=== PATIENT | male | born 1965 | race Caucasian/White ===

== ENCOUNTER 2016-09-23 17:05 | Emergency (ER) | payer SELFPAY ==
[2016-09-23 17:12] VITALS: BMI 19.8
[2016-09-23 17:13] VITALS: RESP 16
[2016-09-23 17:41] LABS: URINE BILIRUBIN NEGATIVE (NEGATIVE); URINE BLOOD NEGATIVE (NEGATIVE); URINE COLOR Colorless (YELLOW); URINE GLUCOSE (UA) NORMAL (Normal); URINE KETONE NEGATIVE (NEGATIVE); URINE LEUKOCYTE ESTERASE NEG Leu/uL (Negative); URINE PROTEIN NEGATIVE (NEGATIVE); URINE UROBILINOGEN NORMAL mg/dL (0.2-1.0); WBC URINE < 1 /hpf (0-5)
--- NOTE | 2016-09-23 17:56 | CT ---
PROCEDURE: CT HEAD WITHOUT CONTRAST. HISTORY: intox, L fingers parasthesia COMPARISON: None available. TECHNIQUE: Axial computed tomography images were obtained through the head/brain without intravenous contrast. Radiation dose: Total exam DLP = 1129.86 mGy-cm. This CT exam was performed using one or more of the following dose reduction techniques: Automated exposure control, adjustment of the mA and/or kV according to patient size, and/or use of iterative reconstruction technique. FINDINGS: Streak artifact obscures evaluation of the skullbase. HEMORRHAGE: No intracranial hemorrhage. BRAIN: No mass effect or edema. Scattered white matter hypodensities, which are nonspecific, but often seen with chronic microvascular ischemic disease. Please note that MRI with diffusion imaging is more sensitive in the detection of acute ischemic event. VENTRICLES: No hydrocephalus. CALVARIUM: Unremarkable. PARANASAL SINUSES: Mild mucosal thickening of the ethmoid air cells. Remainder of the visualized paranasal sinuses appear clear. MASTOID AIR CELLS: Unremarkable as visualized. No inflammatory changes. OTHER FINDINGS: Partial opacification of bilateral external auditory canals, likely cerumen. IMPRESSION: Mild scattered white matter hypodensities, which are nonspecific, but often seen with chronic microvascular ischemic disease. Please note that MRI with diffusion imaging is more sensitive in the detection of acute ischemic event.
[2016-09-23 18:18] LABS: EOS # 0.4 K/uL (0.0-0.7); NRBC % 0.1 % (0.0-2.0)
[2016-09-23 18:21] LABS: BASO % 0.7 % (0.0-2.0); EOS % 6.5 % (0.0-4.0); HEMATOCRIT 46.4 % (35.0-51.0); LYMPH # 2.7 K/uL (1.0-4.3); LYMPH % 41.5 % (20.0-40.0); MEAN CORPUSCULAR HEMOGLOBIN 32.8 pg (27.0-31.0); MEAN CORPUSCULAR HGB CONC 33.5 g/dL (33.0-37.0); MEAN PLATELET VOLUME 9.8 fL (7.2-11.7); MONO # 0.7 K/uL (0.0-0.8); RED CELL DISTRIBUTION WIDTH 14.9 % (11.5-14.5); WHITE BLOOD COUNT 6.4 K/uL (4.8-10.8)
[2016-09-23 18:25] LABS: CHLORIDE 105 mmol/L (98-107)
[2016-09-23 18:26] LABS: SODIUM 144 mmol/L (132-148)
[2016-09-23 18:28] LABS: ALB/GLOB RATIO 1.2 (1.0-2.1); ALKALINE PHOSPHATASE 67 U/L (38-126); ALT/SGPT 54 U/L (21-72); AST/SGOT 73 U/L (17-59); BILIRUBIN,TOTAL 0.4 mg/dL (0.2-1.3); BLOOD UREA NITROGEN 11 mg/dL (9-20); CARBON DIOXIDE 25 mmol/L (22-30); CHOLESTEROL 199 mg/dL (0-199); GFR AFRICAN-AMERICAN > 60; GLUCOSE,RANDOM 92 mg/dL (75-110); TOTAL PROTEIN 7.3 g/dL (6.3-8.3)
[2016-09-23 18:29] LABS: ALCOHOL SERUM 251 mg/dl (0-10); CALCIUM 8.4 mg/dl (8.6-10.4); MEAN CELL VOLUME 97.7 fL (80.0-94.0)
--- NOTE | 2016-09-23 18:41 | C.PDOC ---
History Of Present Illness 51 year old patient presents to the ED complaining of intoxication and chronic left finger paresthesia. 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 Patient denies carpal tunnel syndrome or any other complaints at this time. Time Seen by Provider: 09/23/16 17:12 Chief Complaint (Nursing): Weakness/Neurological Deficit History Per: Patient History/Exam Limitations: no limitations Onset/Duration Of Symptoms: Worse Since (today) Current Symptoms Are (Timing): Still Present Fall Associated With With Symptoms: No Severity: Mild Pain Scale Rating Of: 3 Recent travel outside of the [place]: No Past Medical History Reviewed: Historical Data, Nursing Documentation, Vital Signs Vital Signs: Last Vital Signs Temp 98.4 F 09/23/16 19:20 Pulse 82 09/23/16 19:20 Resp 16 09/23/16 19:20 BP 134/80 09/23/16 19:20 Pulse Ox 95 09/23/16 19:20 - Medical History PMH: Asthma, COPD Family History: States: Unknown Family Hx - Social History Hx Tobacco Use: Yes Hx Alcohol Use: Yes Hx Substance Use: No - Immunization History Hx Tetanus Toxoid Vaccination: No Hx Influenza Vaccination: No Hx Pneumococcal Vaccination: No Review Of Systems Except As Marked, All Systems Reviewed And Found Negative. Constitutional: Negative for: Fever Musculoskeletal: Positive for: Other (left finger paresthesia) Skin: Negative for: Rash Physical Exam - Physical Exam Appears: Non-toxic, No Acute Distress, Other (intoxicated) Skin: Warm, Dry Head: Atraumatic, Normacephalic Neck: Normal ROM, Supple Chest: Symmetrical Cardiovascular: Rhythm Regular Respiratory: Normal Breath Sounds, No Rales, No Rhonchi, No Wheezing Back: Normal Inspection, No CVA Tenderness Extremity: Normal ROM, No Tenderness, No Pedal Edema, No Calf Tenderness, Capillary Refill (<2 seconds), No Deformity, No Swelling, Other (normal pulses) Neurological/Psych: Oriented x3, Normal Motor, Normal Sensation ED Course And Treatment - Laboratory Results Result Diagrams: 09/23/16 18:13 09/23/16 18:13 Lab Interpretation: Abnormal (etoh 251, tox neg.) ECG: Interpreted By Me ECG Rhythm: Sinus Rhythm ECG Interpretation: Normal Rate From EC O2 Sat by Pulse Oximetry: 95 (room air) Pulse Ox Interpretation: Normal - Radiology CXR: Interpreted by Me CXR Interpretation: Yes: No Acute Disease - Other Rad head CT X-Ray: Read By Radiologist (no acute findings.) Reevaluation Time: 18:42 Reassessment Condition: Improved (more sober) Medical Decision Making Medical Decision Making: alcohol intox neuro exam normal L hand/finger parasthesias more likely related to wrist/hand overused syndromes ie carpal tunnel syndrome opt f/u with neuro Counseled on alcohol abuse. Disposition Doctor Will See Patient In The: Office Counseled Patient/Family Regarding: Studies Performed, Diagnosis - Disposition Referrals: Yanick Macdonald MD [Staff Provider] - Disposition: HOME/ ROUTINE Disposition Time: 18:44 Condition: GOOD Additional Instructions: stop alcohol abuse Seek outpatient follow-up for your left hand parastesias wear a wrist splint at night when you sleep Consider carpal Tunnel syndrome. Instructions: Carpal Tunnel Syndrome (ED), Abuse of Alcohol (ED), Paresthesia ( ED) - Clinical Impression Clinical Impression: Anxiety, Alcohol abuse, Left hand paresthesia - Scribe Statement The provider has reviewed the documentation as recorded by the Scribconstantine Huerta Provider Attestation: All medical record entries made by the Scribe were at my direction and personally dictated by me. I have reviewed the chart and agree that the record accurately reflects my personal performance of the history, physical exam, medical decision making, and the department course for this patient. I have also personally directed, reviewed, and agree with the discharge instructions and disposition.
[2016-09-23 19:02] VITALS: O2SAT 95
[2016-09-23 19:25] VITALS: BP 134/80; PULSE 82; TEMP 98.4
--- NOTE | 2016-09-24 09:29 | RAD ---
HISTORY: adm COMPARISON: 05/18/2016 FINDINGS: LUNGS: Biapical pleural thickening with upper lobe granulomatous changes and scattered nodular densities. Diffuse increased interstitial lung markings. PLEURA: No significant pleural effusion identified, no pneumothorax apparent. CARDIOVASCULAR: Normal. OSSEOUS STRUCTURES: No significant abnormalities. VISUALIZED UPPER ABDOMEN: Normal. OTHER FINDINGS: None. IMPRESSION: Biapical pleural thickening with upper lobe granulomatous changes and scattered nodular densities. Diffuse increased interstitial lung markings.
--- NOTE | 2016-09-28 21:22 | CARD ---
APPROVED REPORT EKG Measurement Heart [id number] <Conclusion> Normal sinus rhythm Normal ECG
== END 2016-09-23 19:26 | disposition home or self-care (01) ==
LOC: C.ER 17:05
DX: F41.9 Anxiety disorder, unspecified (principal); F10.10 Alcohol abuse, uncomplicated; Y90.8 Blood alcohol level of 240 mg/100 ml or more; R20.9 Unspecified disturbances of skin sensation
CPT/HCPCS: 70450; 71010; 80053; 80061; 81001; 82948; 83036; 83880; 84484; 85025; 85610; 85730; 93005; 99285; G0480

== ENCOUNTER 2016-11-12 16:01 | Emergency (ER) | payer MEDICAID, OTHER ==
[2016-11-12 16:01] VITALS: BMI 19.8
[2016-11-12] MEDS ORDERED: Albuterol-Ipratrop 3 mg / 0.5 (3 ml) UD IH STA (16:53)
[2016-11-12] MEDS ORDERED: Albuterol 0.083% Inhal Sol (2.5 mg/3 mL) UD IH STA (16:53)
[2016-11-12] MEDS ORDERED: Albuterol 0.083% Inhal Sol (2.5 mg/3 mL) UD ONE (17:08)
[2016-11-12] MEDS ORDERED: Albuterol-Ipratrop 3 mg / 0.5 (3 ml) UD ONE (17:09)
[2016-11-12 17:10] LABS: BASO # 0.1 K/uL (0.0-0.2); EOS # 0.3 K/uL (0.0-0.7); EOS % 2.9 % (0.0-4.0); HEMOGLOBIN 15.9 g/dL (12.0-18.0); LYMPH # 1.6 K/uL (1.0-4.3); LYMPH % 17.9 % (20.0-40.0); MEAN CELL VOLUME 98.7 fL (80.0-94.0); MEAN CORPUSCULAR HEMOGLOBIN 33.3 pg (27.0-31.0); MEAN CORPUSCULAR HGB CONC 33.7 g/dL (33.0-37.0); MEAN PLATELET VOLUME 10.6 fL (7.2-11.7); MONO # 1.1 K/uL (0.0-0.8); MONO % 12.5 % (0.0-10.0); NEUT % 65.7 % (50.0-75.0); RBC 4.77 Mil/uL (4.40-5.90); RED CELL DISTRIBUTION WIDTH 14.1 % (11.5-14.5); WHITE BLOOD COUNT 9.2 K/uL (4.8-10.8)
[2016-11-12 17:14] LABS: URINE BILIRUBIN NEGATIVE (NEGATIVE); URINE BLOOD NEGATIVE (NEGATIVE); URINE CLARITY Clear (Clear); URINE COLOR Straw (YELLOW); URINE GLUCOSE (UA) NORMAL (Normal); URINE LEUKOCYTE ESTERASE NEG Leu/uL (Negative); URINE NITRATE NEGATIVE (NEGATIVE); URINE PROTEIN NEGATIVE (NEGATIVE); URINE UROBILINOGEN NORMAL mg/dL (0.2-1.0)
[2016-11-12 17:19] LABS: ALBUMIN 4.2 g/dL (3.5-5.0)
[2016-11-12 17:21] LABS: BENZODIAZEPINES, UR POSITIVE (NEGATIVE)
[2016-11-12 17:22] LABS: BARBITURATES, UR NEGATIVE (NEGATIVE)
[2016-11-12 17:22] LABS: ALB/GLOB RATIO 1.2 (1.0-2.1); AST/SGOT 120 U/L (17-59); GFR AFRICAN-AMERICAN > 60; GFR NON-AFRICAN AMERICAN > 60
[2016-11-12 17:23] LABS: ALT/SGPT 104 U/L (21-72); BLOOD UREA NITROGEN 16 mg/dL (9-20); CALCIUM 9.2 mg/dl (8.6-10.4)
[2016-11-12 17:24] LABS: OPIATES, UR NEGATIVE (NEGATIVE)
[2016-11-12 17:25] LABS: PHENCYCLIDINE, UR NEGATIVE (NEGATIVE)
--- NOTE | 2016-11-12 17:40 | C.PDOC ---
History Of Present Illness 51 y/o male, with past medical history of COPD, presents to the emergency department with complaints of shortness of breath, and pins and needle sensation to his right 4th and 5th digits for the last 2 weeks. Pt denies any injury, or leaning over. Patient also states that he has been drinking too much alcohol and now is waking in the morning feeling shaky. Pt is requesting a detox. Otherwise, denies any pain, cough, fever, or any other associated symptoms at this time. Time Seen by Provider: 11/12/16 16:39 Chief Complaint (Nursing): Weakness/Neurological Deficit History Per: Patient History/Exam Limitations: no limitations Onset/Duration Of Symptoms: Days Current Symptoms Are (Timing): Still Present Suicide/Self Injury Attempted (Context): None Modifying Factor(s): Alcohol Severity: None Pain Scale Rating Of: 0 Associated Symptoms: denies: Suicidal Thoughts, Suicidal Plan Involuntary Hold By: None Recent travel outside of the [place]: No Additional History Per: Patient Past Medical History Reviewed: Historical Data, Nursing Documentation, Vital Signs Vital Signs: Last Vital Signs Temp 98.3 F 11/12/16 16:08 Pulse 97 H 11/12/16 16:08 Resp 18 11/12/16 16:08 BP 136/82 11/12/16 16:08 Pulse Ox 94 L 11/12/16 17:59 - Medical History PMH: Anxiety, Asthma, COPD Denies: Chronic Kidney Disease Family History: States: Unknown Family Hx - Social History Hx Tobacco Use: Yes Hx Alcohol Use: Yes Hx Substance Use: No - Immunization History Hx Tetanus Toxoid Vaccination: No Hx Influenza Vaccination: No Hx Pneumococcal Vaccination: No Review Of Systems Except As Marked, All Systems Reviewed And Found Negative. Constitutional: Positive for: Other (shaky). Negative for: Fever, Chills Cardiovascular: Negative for: Chest Pain, Palpitations Respiratory: Positive for: Shortness of Breath. Negative for: Cough, Hemoptysis , Sputum Gastrointestinal: Negative for: Nausea, Vomiting, Abdominal Pain Skin: Negative for: Rash Neurological: Positive for: Other (pins and needle sensation to right 4th, 5th digits). Negative for: Headache, Dizziness Psych: Negative for: Suicidal ideation Physical Exam - Physical Exam Appears: Non-toxic, No Acute Distress Skin: Normal Color, Warm, Dry Head: Atraumatic, Normacephalic Eye(s): bilateral: Normal Inspection Neck: Normal ROM, Supple Chest: Symmetrical Cardiovascular: Rhythm Regular, No Murmur Respiratory: No Rales, No Rhonchi, Wheezing Gastrointestinal/Abdominal: Soft, No Tenderness Extremity: Normal ROM, No Tenderness, Capillary Refill (< 2 sec.), No Deformity , No Swelling Extremity: Bilateral: Atraumatic Neurological/Psych: Oriented x3, Normal Speech, Normal Cognition, Normal Motor, Normal Sensation ED Course And Treatment - Laboratory Results Result Diagrams: 11/12/16 17:07 11/12/16 17:07 Lab Interpretation: No Acute Changes O2 Sat by Pulse Oximetry: 94 Pulse Ox Interpretation: Normal Progress Note: Blood work, urinalysis ordered and reviewed. Patient was treated with Albuterol. Reevaluation Time: 18:22 Reassessment Condition: Improved (Breathing improved. Patient seen by crisis and advised that we do not have a detox bed today but may have availability tomorrow. Patient to be in contact with Stacey tomorrow. He is breathing better and has no wheezing after albuterol.) Disposition Counseled Patient/Family Regarding: Studies Performed, Diagnosis, Need For Followup - Disposition Referrals: Alcoholics Anonymous [Outside] [facility] [Outside] Disposition: HOME/ ROUTINE Disposition Time: 18:23 Condition: STABLE Instructions: Alcohol Use Disorder (ED), Paresthesia (ED), COPD (Chronic Obstructive Pulmonary Disease) (ED) - Clinical Impression Clinical Impression: Alcohol dependence, Paresthesia, Chronic obstructive lung disease - Scribe Statement The provider has reviewed the documentation as recorded by the Scribconstantine Huerta All medical record entries made by the Scribe were at my direction and personally dictated by me. I have reviewed the chart and agree that the record accurately reflects my personal performance of the history, physical exam, medical decision making, and the department course for this patient. I have also personally directed, reviewed, and agree with the discharge instructions and disposition.
[2016-11-12 19:16] VITALS: BP 121/82; PULSE 91; RESP 15; TEMP 98.2; O2SAT 97
== END 2016-11-12 18:45 | disposition home or self-care (01) ==
LOC: C.ER 16:01
DX: J44.9 Chronic obstructive pulmonary disease, unspecified (principal); F10.20 Alcohol dependence, uncomplicated; Y90.5 Blood alcohol level of 100-119 mg/100 ml; R20.2 Paresthesia of skin; Z72.0 Tobacco use
CPT/HCPCS: 80053; 81001; 85025; 94150; 94640; 99285; G0480

== ENCOUNTER 2016-11-14 10:11 | Emergency (ER) | payer MEDICAID, OTHER ==
[2016-11-14 10:11] VITALS: BMI 19.8
[2016-11-14] MEDS ORDERED: Sodium Chloride 0.9% 500 ML IV ONE (11:41)
[2016-11-14] MEDS ORDERED: Albuterol 0.083% Inhal Sol (2.5 mg/3 mL) UD IH STA (11:43)
[2016-11-14] MEDS ORDERED: Albuterol-Ipratrop 3 mg / 0.5 (3 ml) UD IH STA (11:43)
[2016-11-14] MEDS ORDERED: Sodium Chloride 0.9% 1,000 ML ONE (11:49)
--- NOTE | 2016-11-14 11:50 | C.PDOC ---
History Of Present Illness 51 yr old with history of alcohol abuse, COPD, smoker, presents to the ER requesting alcohol detox. Patient states he was seen earlier today at the clinic and was told " Im a hard of breathing and they recommend me go to ED to be seen". At present time, Patient denies fever, chills, headache, dizziness, visual changes, focal deficits, chest pain, SOB, wheezing, palpitation, diaphoresis, nausea, vomiting, abdominal pain, diarrhea, back pain. Denies SI or HI. Ambulate to ED for evaluation, not in any apparent distress. Time Seen by Provider: 11/14/16 10:36 Chief Complaint (Nursing): Substance Abuse History Per: Patient History/Exam Limitations: no limitations Onset/Duration Of Symptoms: Days Suicide/Self Injury Attempted (Context): None Modifying Factor(s): Alcohol Past Medical History Reviewed: Historical Data, Nursing Documentation, Vital Signs Vital Signs: Last Vital Signs Temp 98.6 F 11/14/16 13:45 Pulse 62 11/14/16 13:45 Resp 18 11/14/16 13:45 BP 114/70 11/14/16 13:45 Pulse Ox 99 11/14/16 13:45 - Medical History PMH: Anxiety, Asthma, COPD Family History: States: No Known Family Hx - Social History Hx Tobacco Use: Yes Hx Alcohol Use: Yes Hx Substance Use: No - Immunization History Hx Tetanus Toxoid Vaccination: No Hx Influenza Vaccination: No Hx Pneumococcal Vaccination: No Review Of Systems Except As Marked, All Systems Reviewed And Found Negative. Cardiovascular: Negative for: Chest Pain, Palpitations Respiratory: Negative for: Shortness of Breath, Wheezing Gastrointestinal: Negative for: Nausea, Vomiting, Abdominal Pain Neurological: Negative for: Weakness, Numbness Psych: Negative for: Suicidal ideation Physical Exam - Physical Exam Appears: Non-toxic, No Acute Distress Skin: Warm, Dry, No Rash Eye(s): bilateral: PERRL Ear(s): Bilateral: Normal Oral Mucosa: Moist, No Drooling Throat: No Erythema, No Exudate, No Drooling Neck: Supple, Other ((-) JVD, (-) carotid bruits) Chest: Symmetrical, No Tenderness Cardiovascular: Rhythm Regular, No Murmur Respiratory: No Decreased Breath Sounds, No Accessory Muscle Use, No Rales, No Rhonchi, No Stridor, Wheezing (Diffuse left sided wheezing . BS equal B/L.) Gastrointestinal/Abdominal: Soft, No Tenderness, No Distention, No Guarding, No Rebound Back: No CVA Tenderness Extremity: Normal ROM, No Pedal Edema, No Swelling Neurological/Psych: Oriented x3, Normal Speech, Normal Motor ED Course And Treatment - Laboratory Results Result Diagrams: 11/14/16 12:02 11/14/16 12:02 Lab Interpretation: No Acute Changes O2 Sat by Pulse Oximetry: 98 (RA ) Pulse Ox Interpretation: Normal - Other Rad CXR X-Ray: Viewed By Me, Read By Radiologist Interpretation: HISTORY: Cough. COMPARISON: Emphysema comparison made with chest radiograph 08/26/[address] scan chest 08/01/2014. TECHNIQUE: Chest PA and lateral. FINDINGS: LUNGS: Lungs appear hyperinflated. Findings consistent with mild. Mild biapical pleural thickening. PLEURA: No significant pleural effusion identified. No pneumothorax apparent. CARDIOVASCULAR: Normal. OSSEOUS STRUCTURES: Minor multilevel degenerative spondylosis of the thoracic spine. VISUALIZED UPPER ABDOMEN: Normal. OTHER FINDINGS: None. IMPRESSION: Lungs appear hyperinflated. Findings consistent with mild emphysema. Mild biapical pleural thickening. Progress Note: On re-evaluation, pt is afebrile, hemodynamicaly stable. Non- toxic. PulseOx 98% RA. ENT: milena cute findings. neck: Supple, (-) JVD, (-) carotid bruits. Lungs: moderate improvement in wheezing Left side, BS equal B/ L. CVS: (+)S1S2, reg. Abd: benign, (-) guarding, (-) rebound. Neurologicaly intact. Diagnotics and imaging review and appears without acute abnormalities. Pt has clinical findings c/w acute chronic brochitis with acute exacerbation, hx of alcohol abuse. Pt request alcohol detox and evaluation by crisis was ordered. Pt is medically cleared for further PES evaluation. After pt was evaluated by PES, case discussed with psych on-call, pt does not meet critearia for admission today. Discussed with pt, pt agrees with discharge and stable for discharge and outpt f/u now. Medical Decision Making Medical Decision Making: PLAN: * CXR * Alcohol Serum * CBC * CMP * Urinalysis * Albuterol IH * Ativan IVP * Solumedrol IVP * Sodium Chloride IV Disposition Counseled Patient/Family Regarding: Studies Performed, Diagnosis, Need For Followup, Rx Given - Disposition Referrals: Alcoholics Anonymous [Outside] [facility] [Outside] Disposition: HOME/ ROUTINE Disposition Time: 14:02 Condition: STABLE Additional Instructions: Take medication as prescribed Encourage fluids Follow up with PMD and Psychiatrist in 2-3 days for re-evaluation. Return to ED if any worsening or new changes. Prescriptions: Albuterol HFA [Ventolin HFA 90 mcg/actuation (8 g)] 1 puff IH Q6 #1 inhaler Azithromycin 1 tab PO DAILY #4 tab Azithromycin [Zithromax] 250 mg PO DAILY #4 tab Prednisone [Deltasone] 40 mg PO DAILY #6 tablet Instructions: COPD (Chronic Obstructive Pulmonary Disease) (ED), Alcohol Use Disorder (ED) - Clinical Impression Clinical Impression: Chronic obstructive lung disease, Alcohol dependence - PA / [employer] ATTENDANT / Resident Statement MD/DO has reviewed & agrees with the documentation as recorded. - Scribe Statement The provider has reviewed the documentation as recorded by the Scribe Ruthann Cramer All medical record entries made by the Romeoibconstantine were at my direction and personally dictated by me. I have reviewed the chart and agree that the record accurately reflects my personal performance of the history, physical exam, medical decision making, and the department course for this patient. I have also personally directed, reviewed, and agree with the discharge instructions and disposition.
[2016-11-14] MEDS ORDERED: Albuterol-Ipratrop 3 mg / 0.5 (3 ml) UD ONE (11:51)
[2016-11-14] MEDS ORDERED: Albuterol 0.083% Inhal Sol (2.5 mg/3 mL) UD ONE (11:51)
[2016-11-14 12:05] LABS: BASO # 0.1 K/uL (0.0-0.2); BASO % 0.9 % (0.0-2.0); EOS # 0.7 K/uL (0.0-0.7); EOS % 9.8 % (0.0-4.0); HEMOGLOBIN 14.9 g/dL (12.0-18.0); LYMPH # 1.4 K/uL (1.0-4.3); LYMPH % 18.7 % (20.0-40.0); MEAN CELL VOLUME 99.3 fL (80.0-94.0); MEAN CORPUSCULAR HGB CONC 33.3 g/dL (33.0-37.0); MEAN PLATELET VOLUME 10.5 fL (7.2-11.7); MONO # 1.2 K/uL (0.0-0.8); MONO % 16.5 % (0.0-10.0); NEUT # 3.9 K/uL (1.8-7.0); NEUT % 54.1 % (50.0-75.0); RBC 4.53 Mil/uL (4.40-5.90); RED CELL DISTRIBUTION WIDTH 13.7 % (11.5-14.5); WHITE BLOOD COUNT 7.3 K/uL (4.8-10.8)
[2016-11-14 12:26] LABS: BLOOD UREA NITROGEN 14 mg/dL (9-20); CALCIUM 8.5 mg/dl (8.6-10.4); GFR AFRICAN-AMERICAN > 60; GFR NON-AFRICAN AMERICAN > 60
[2016-11-14 12:57] LABS: URINE BILIRUBIN NEGATIVE (NEGATIVE); URINE BLOOD NEGATIVE (NEGATIVE); URINE CLARITY Clear (Clear); URINE COLOR Yellow (YELLOW); URINE GLUCOSE (UA) NORMAL (Normal); URINE LEUKOCYTE ESTERASE NEG Leu/uL (Negative); URINE NITRATE NEGATIVE (NEGATIVE); URINE PROTEIN NEGATIVE (NEGATIVE)
--- NOTE | 2016-11-14 13:02 | RAD ---
HISTORY: Cough COMPARISON: Emphysema comparison made with chest radiograph 08/26/[address] scan chest 08/01/2014. TECHNIQUE: Chest PA and lateral FINDINGS: LUNGS: Lungs appear hyperinflated. Findings consistent with mild. Mild biapical pleural thickening. PLEURA: No significant pleural effusion identified. No pneumothorax apparent. CARDIOVASCULAR: Normal. OSSEOUS STRUCTURES: Minor multilevel degenerative spondylosis of the thoracic spine VISUALIZED UPPER ABDOMEN: Normal. OTHER FINDINGS: None. IMPRESSION: Lungs appear hyperinflated. Findings consistent with mild emphysema. Mild biapical pleural thickening
[2016-11-14 13:08] LABS: BARBITURATES, UR NEGATIVE (NEGATIVE)
[2016-11-14 13:11] LABS: OPIATES, UR NEGATIVE (NEGATIVE)
[2016-11-14 13:12] LABS: PHENCYCLIDINE, UR NEGATIVE (NEGATIVE)
[2016-11-14 13:22] LABS: BENZODIAZEPINES, UR POSITIVE (NEGATIVE)
[2016-11-14 13:56] VITALS: RESP 18; TEMP 98.6
[2016-11-14 16:04] VITALS: BP 115/75; PULSE 83
[2016-11-14 16:06] VITALS: O2SAT 98
== END 2016-11-14 16:27 | disposition home or self-care (01) ==
LOC: C.ER 10:11
DX: J44.9 Chronic obstructive pulmonary disease, unspecified (principal); F10.20 Alcohol dependence, uncomplicated; Y90.0 Blood alcohol level of less than 20 mg/100 ml; F17.210 Nicotine dependence, cigarettes, uncomplicated
CPT/HCPCS: 71020; 80048; 81001; 85025; 94640; 96374; 96375; 99284; G0480; J2060; J2930; J7040

== ENCOUNTER 2016-12-24 06:11 | Inpatient (IN) | payer MEDICAID, OTHER ==
[2016-12-24 06:12] VITALS: BMI 19.8
[2016-12-24] MEDS ORDERED: Albuterol-Ipratrop 3 mg / 0.5 (3 ml) UD ONE ×2 (06:19→07:47)
[2016-12-24] MEDS ORDERED: Albuterol-Ipratrop 3 mg / 0.5 (3 ml) UD INH STA (06:20)
[2016-12-24] MEDS ORDERED: Sodium Chloride 0.9% 1,000 ML IV ONE (07:38)
[2016-12-24] MEDS ORDERED: Albuterol 0.083% Inhal Sol (2.5 mg/3 mL) UD IH STA (07:40)
[2016-12-24] MEDS ORDERED: Albuterol-Ipratrop 3 mg / 0.5 (3 ml) UD IH STA (07:40)
[2016-12-24] MEDS ORDERED: Magnesium Sulfate 1 gm in D5W 1 GM/100 ML BAG IV ONE (07:41)
[2016-12-24] MEDS ORDERED: Sodium Chloride 0.9% 1,000 ML ONE (07:48)
[2016-12-24] MEDS ORDERED: Albuterol 0.083% Inhal Sol (2.5 mg/3 mL) UD ONE (07:48)
--- NOTE | 2016-12-24 07:48 | C.PDOC ---
History Of Present Illness 51 y/o male, with past medical history of COPD, (+) smoker, presents to ED for evaluation of chest tightness associated with cough productive of clear sputum. Patient also noted some wheezing since last night. Patient reports using inhaler at home without any improvement. Denies fever, chills, headache, dizziness, drooling, dysphagia, dyspnea, chest pain, palpitations, diaphoresis, SOB, abd. pain, nausea, vomiting, back pain. Ambulate to ED for evaluation, not in any apparent distress.. Time Seen by Provider: 12/24/16 07:24 Chief Complaint (Nursing): Respiratory Distress History Per: Patient History/Exam Limitations: no limitations Onset/Duration Of Symptoms: Days Current Symptoms Are (Timing): Still Present Associated Symptoms: Productive Cough. denies: Fever, Chills, Ankle/Leg Swelling, Dizziness, Light-headedness Recent travel outside of the [place]: No Past Medical History Reviewed: Historical Data, Nursing Documentation, Vital Signs Vital Signs: Last Vital Signs Temp 98.1 F 12/27/16 07:00 Pulse 74 12/27/16 07:00 Resp 20 12/27/16 07:00 BP 100/63 12/27/16 07:00 Pulse Ox 96 12/27/16 07:00 - Medical History PMH: Anxiety, Asthma, COPD Family History: States: Unknown Family Hx - Social History Hx Tobacco Use: Yes Hx Alcohol Use: Yes Hx Substance Use: No - Immunization History Hx Tetanus Toxoid Vaccination: No Hx Influenza Vaccination: No Hx Pneumococcal Vaccination: No Review Of Systems Except As Marked, All Systems Reviewed And Found Negative. Constitutional: Negative for: Fever, Chills Cardiovascular: Negative for: Chest Pain, Palpitations Respiratory: Positive for: Cough, Sputum, Wheezing Gastrointestinal: Negative for: Nausea, Vomiting, Abdominal Pain Skin: Negative for: Rash Neurological: Negative for: Headache, Dizziness Physical Exam - Physical Exam Appears: Non-toxic, No Acute Distress Skin: Normal Color, Warm, Dry Head: Atraumatic, Normacephalic Eye(s): bilateral: Normal Inspection, EOMI Nose: Normal Oral Mucosa: Moist Throat: Normal, No Erythema, No Exudate Neck: Normal ROM, Supple Chest: Symmetrical Cardiovascular: Rhythm Regular Respiratory: No Accessory Muscle Use, No Rales, No Rhonchi, Wheezing (diffuse wheezing bilaterally) Gastrointestinal/Abdominal: Soft, No Tenderness, No Guarding, No Rebound Back: Normal Inspection Extremity: Normal ROM, Capillary Refill (< 2 sec.) Neurological/Psych: Oriented x3, Normal Speech, Normal Cognition ED Course And Treatment - Laboratory Results Result Diagrams: 12/26/16 07:04 12/26/16 07:04 Lab Interpretation: Abnormal ECG: Interpreted By Me ECG Rhythm: Sinus Rhythm ECG Interpretation: No Acute Changes Rate From EC (bpm) O2 Sat by Pulse Oximetry: 96 Pulse Ox Interpretation: Normal - Radiology CXR: Interpreted by Me, Viewed By Me CXR Interpretation: Yes: Other (emphysema) Progress Note: Treated with duonebs, mg sulfate, solumedrol, IV fluids. Labs, EKG, ordered. On re-eavluation, pt apears unchanged. PulseOx 94% RA- hypoxic and 96 % on 2lNC. Lungs: (+) diffuse B/L wheezing, BS equal B/L. Case discussed with ED attenidng and admission recommend. Pt was offere dadmission, agrees with plan. case discussed with Hospitalist and admission arranged. Disposition - Disposition Disposition: HOSPITALIZED Disposition Time: 09:19 Condition: STABLE - Clinical Impression Clinical Impression: COPD with acute exacerbation, Hypoxia, Smoking addiction - PA / TECHNICIAN BIOLOGICAL HEALTH / Resident Statement MD/DO has reviewed & agrees with the documentation as recorded. - Scribe Statement The provider has reviewed the documentation as recorded by the Romeoibconstantine Estrella All medical record entries made by the Romeoibconstantine were at my direction and personally dictated by me. I have reviewed the chart and agree that the record accurately reflects my personal performance of the history, physical exam, medical decision making, and the department course for this patient. I have also personally directed, reviewed, and agree with the discharge instructions and disposition.
[2016-12-24 07:50] LABS: BASO # 0.1 K/uL (0.0-0.2); BASO % 0.6 % (0.0-2.0); HEMATOCRIT 47.3 % (35.0-51.0); LYMPH # 1.5 K/uL (1.0-4.3); LYMPH % 17.2 % (20.0-40.0); MEAN CORPUSCULAR HEMOGLOBIN 33.8 pg (27.0-31.0); MEAN CORPUSCULAR HGB CONC 33.5 g/dL (33.0-37.0); MEAN PLATELET VOLUME 10.8 fL (7.2-11.7); MONO # 0.9 K/uL (0.0-0.8); MONO % 10.5 % (0.0-10.0); NRBC % 0.1 % (0.0-2.0); RED CELL DISTRIBUTION WIDTH 14.1 % (11.5-14.5)
[2016-12-24] MEDS ORDERED: Magnesium Sulfate 1 gm in D5W 1 GM/100 ML BAG IVPB ONE (07:55)
[2016-12-24 07:58] LABS: CHLORIDE 100 mmol/L (98-107)
[2016-12-24 07:59] LABS: POTASSIUM 4.1 mmol/L (3.6-5.2); SODIUM 143 mmol/L (132-148)
[2016-12-24 08:01] LABS: ALB/GLOB RATIO 1.1 (1.0-2.1); ALKALINE PHOSPHATASE 90 U/L (38-126); AST/SGOT 98 U/L (17-59); BILIRUBIN,TOTAL 0.7 mg/dL (0.2-1.3); CARBON DIOXIDE 27 mmol/L (22-30); GFR AFRICAN-AMERICAN > 60; TOTAL PROTEIN 7.7 g/dL (6.3-8.3)
[2016-12-24 08:02] LABS: ALT/SGPT 104 U/L (21-72); BLOOD UREA NITROGEN 15 mg/dL (9-20); CALCIUM 9.1 mg/dl (8.6-10.4); GLUCOSE,RANDOM 87 mg/dL (75-110)
[2016-12-24 09:06] LABS: RBC URINE < 1 /hpf (0-3); URINE BILIRUBIN NEGATIVE (NEGATIVE); URINE BLOOD NEGATIVE (NEGATIVE); URINE CALCIUM OXALATE CRYSTALS RARE /hpf (<OCC); URINE COLOR Yellow (YELLOW); URINE GLUCOSE (UA) NORMAL (Normal); URINE KETONE NEGATIVE (NEGATIVE); URINE LEUKOCYTE ESTERASE NEG Leu/uL (Negative); URINE PROTEIN NEGATIVE (NEGATIVE); URINE UROBILINOGEN NORMAL mg/dL (0.2-1.0); WBC URINE < 1 /hpf (0-5)
[2016-12-24] MEDS ORDERED: Moxifloxacin IV 400mg/250ml NS 400 MG/250 ML BAG IV ONE (10:30)
--- NOTE | 2016-12-24 10:51 | RAD ---
HISTORY: Cough COMPARISON: Chest x-ray performed 11/14/16 TECHNIQUE: Chest PA and lateral FINDINGS: LUNGS: Biapical pleural thickening. Hyperinflation may be seen in the setting of COPD. Increased lucencies especially within the bilateral upper lung swan compatible with underlying emphysema. No focal consolidation. Please note that chest x-ray has limited sensitivity for the detection of pulmonary masses. PLEURA: No significant pleural effusion identified. No definite pneumothorax . CARDIOVASCULAR: Heart size appears within normal limits. OSSEOUS STRUCTURES: Multilevel degenerative changes. VISUALIZED UPPER ABDOMEN: Unremarkable. OTHER FINDINGS: None. IMPRESSION: Biapical pleural thickening. Additional findings consistent with COPD/ emphysema.
[2016-12-24] MEDS: Albuterol-Ipratrop 3 mg / 0.5 (3 ml) UD INH SCH ×2 (13:56→20:31)
[2016-12-24 17:04] VITALS: RESP 20
[2016-12-24] MEDS: guaiFENesin 600 mg ER Tab PO SCH (17:54)
--- NOTE | 2016-12-24 20:18 | CARD ---
APPROVED REPORT EKG Measurement Heart [id number] <Conclusion> Normal sinus rhythm Normal ECG
[2016-12-24] MEDS ORDERED: methylPREDNISolone 60 MG in Sodium Chloride 0.9% 100 ML IVPB SCH (22:00)
[2016-12-25] MEDS: Albuterol-Ipratrop 3 mg / 0.5 (3 ml) UD INH SCH ×5 (00:05→19:11)
[2016-12-25] MEDS: Tiotropium 18 mcg Cap For Inhalation INH SCH (07:20)
[2016-12-25] MEDS: Enoxaparin 40 mg Syringe SC SCH (10:02)
[2016-12-25] MEDS: Azithromycin 500 MG in Sodium Chloride 0.9% 250 ML IVPB SCH (10:02)
[2016-12-25] MEDS: guaiFENesin 600 mg ER Tab PO SCH ×2 (10:02→18:44)
--- NOTE | 2016-12-25 10:13 | HP ---
CHIEF COMPLAINT: Shortness of breath. HISTORY OF PRESENT ILLNESS: This is a 51-year-old male, heavy smoker, severe COPD for the last 9 years. He had been smoking. He is noncompliant with diet, medications and followup and he was admitted last month at [facility] for shortness of breath, cough, congestion and wheezing. According to the patient, for last 3 days, he has been having increasing cough, congestion, shortness of breath and wheezing. Sputum productive of whitish sputum. He had fever, chills, or rigors. He denies any nausea, vomiting or diarrhea. He denies any polyuria, polydipsia or polyphagia. He denies any headaches or dizziness. He has been noncompliant. He was discharged on medications. He neither followed up with the private medical doctor nor he took medications. ALLERGIES: UNKNOWN. CURRENT MEDICATIONS: Unknown. PAST MEDICAL HISTORY: COPD and anxiety. SOCIAL HISTORY: He smokes and he drinks. FAMILY HISTORY: Noncontributory. PHYSICAL EXAMINATION: GENERAL: A middle-aged male in distress with shortness of breath. VITAL SIGNS: Blood pressure is 142/91, pulse is 99, respiratory rate is 20, and temperature is 97.7. SKIN: Dry. HEENT: Atraumatic and normocephalic. Negative pallor. Negative jaundice. Extraocular movements are intact. NECK: Supple. LUNGS: Bilateral inspiratory and expiratory rhonchi. CARDIOVASCULAR SYSTEM: S1 and S2 regular. ABDOMEN: Soft and nontender. Bowel sounds are positive. RECTAL: Negative. EXTREMITIES: No clubbing, cyanosis or edema. CENTRAL NERVOUS SYSTEM: Awake, alert and oriented x3. ASSESSMENT: 1. Acute exacerbation of chronic obstructive pulmonary disease. 2. Tracheal bronchitis. PLAN: Admit detailed orders written, seen and examined. Ghulam Jerez MD
[2016-12-25] MEDS: Fluticasone-Salmeterol 250-50mcg Diskus INH SCH ×2 (13:28→19:10)
--- NOTE | 2016-12-25 22:31 | CP.PCM.PN ---
Subjective - Subjective Subjective: LESS SOB Objective - Vital Signs/Intake and Output Vital Signs (last 24 hours): Temp Pulse Resp BP Pulse Ox 97.9 F 78 20 120/80 96 12/25/16 15:14 12/25/16 15:14 12/25/16 15:14 12/25/16 15:14 12/25/16 15:14 Intake and Output: 12/25/16 12/26/16 18:59 06:59 Intake Total 400 Output Total 0 Balance 400 - Medications Medications: Current Medications Albuterol/Ipratropium (Duoneb 3 Mg/0.5 Mg (3 Ml) Ud) 3 ml INH RQ6 [facility] Last Admin: 12/25/16 19:11 Dose: 3 ml Chlordiazepoxide (Librium) 25 mg PO Q8 PRN PRN Reason: Restlessness Last Admin: 12/25/16 21:45 Dose: 25 mg Enoxaparin Sodium (Lovenox) 40 mg SC DAILY [facility] Last Admin: 12/25/16 10:02 Dose: 40 mg Guaifenesin (Mucinex [place]) 600 mg PO BID [facility] Last Admin: 12/25/16 18:44 Dose: 600 mg Azithromycin 500 mg/ Sodium (Chloride) 250 mls @ 250 mls/hr IVPB DAILY [facility] Last Admin: 12/25/16 10:02 Dose: 250 mls/hr Methylprednisolone (Solu-Medrol) 60 mg IVP Q12 [facility] Last Admin: 12/25/16 21:44 Dose: 60 mg Nicotine (Nicoderm Cq) 1 patch TD DAILY [facility] Last Admin: 12/25/16 10:15 Dose: 1 patch Pneumococcal Polyvalent Vaccine (Pneumovax 23 Vaccine) 0.5 ml IM .ONCE ONE Stop: 12/27/16 10:01 Fluticasone/Salmeterol (Advair Diskus 250/50) 1 puff INH RQ12 [facility] Last Admin: 12/25/16 19:10 Dose: 1 puff Tiotropium [place] (Spiriva) 18 mcg INH RQ24 [facility] Last Admin: 12/25/16 07:20 Dose: 18 mcg - Constitutional Appears: Non-toxic, Chronically Ill - Head Exam Head Exam: NORMAL INSPECTION, NORMOCEPHALIC - Eye Exam Eye Exam: Normal appearance Pupil Exam: NORMAL ACCOMODATION - ENT Exam ENT Exam: Mucous Membranes Moist, Normal Exam, Normal Oropharynx, TM's Normal Bilaterally - Respiratory Exam Respiratory Exam: Prolonged Expiratory Phase, Rales, Rhonchi - Cardiovascular Exam Cardiovascular Exam: REGULAR RHYTHM, +S1, +S2 - GI/Abdominal Exam GI & Abdominal Exam: Normal Bowel Sounds Assessment and Plan (1) COPD with acute exacerbation Status: Acute
[2016-12-26] MEDS: Albuterol-Ipratrop 3 mg / 0.5 (3 ml) UD INH SCH ×4 (00:59→20:07)
[2016-12-26 07:22] LABS: BASO % 0.3 % (0.0-2.0); HEMATOCRIT 47.9 % (35.0-51.0); LYMPH # 0.5 K/uL (1.0-4.3); LYMPH % 3.3 % (20.0-40.0); MEAN CELL VOLUME 100.8 fL (80.0-94.0); MEAN CORPUSCULAR HEMOGLOBIN 33.5 pg (27.0-31.0); MEAN CORPUSCULAR HGB CONC 33.2 g/dL (33.0-37.0); MEAN PLATELET VOLUME 11.9 fL (7.2-11.7); MONO # 0.7 K/uL (0.0-0.8); MONO % 5.3 % (0.0-10.0); NRBC % 0.1 % (0.0-2.0); PLATELET COUNT 135 K/uL (130-400); RED CELL DISTRIBUTION WIDTH 13.8 % (11.5-14.5)
[2016-12-26] MEDS: Tiotropium 18 mcg Cap For Inhalation INH SCH (07:25)
[2016-12-26 07:37] LABS: WHITE BLOOD COUNT 14.1 K/uL (4.8-10.8)
[2016-12-26 07:56] LABS: CHLORIDE 100 mmol/L (98-107); SODIUM 138 mmol/L (132-148)
[2016-12-26 07:57] LABS: POTASSIUM 4.7 mmol/L (3.6-5.2)
[2016-12-26 07:59] LABS: CARBON DIOXIDE 29 mmol/L (22-30); GFR AFRICAN-AMERICAN > 60
[2016-12-26 08:00] LABS: BLOOD UREA NITROGEN 23 mg/dL (9-20); CALCIUM 9.3 mg/dl (8.6-10.4); GLUCOSE,RANDOM 130 mg/dL (75-110)
[2016-12-26 08:50] LABS: NEUTROPHIL 91 % (50-75); TOTAL CELLS COUNTED 100
[2016-12-26] MEDS: Azithromycin 500 MG in Sodium Chloride 0.9% 250 ML IVPB SCH (09:49)
[2016-12-26] MEDS: guaiFENesin 600 mg ER Tab PO SCH ×2 (09:49→18:08)
[2016-12-26] MEDS: Enoxaparin 40 mg Syringe SC SCH (09:49)
[2016-12-26] MEDS: Fluticasone-Salmeterol 250-50mcg Diskus INH SCH ×2 (13:08→20:09)
--- NOTE | 2016-12-26 14:53 | CP.PCM.PN ---
Subjective - Date & Time of Evaluation Date of Evaluation: 12/26/16 Time of Evaluation: 11:30 - Subjective Subjective: Pt seen and examined today , less sob, less congestion, cough with white color sputum, denies any fever, chills, a febrile Objective - Vital Signs/Intake and Output Vital Signs (last 24 hours): Temp Pulse Resp BP Pulse Ox 97.4 F L 71 20 124/61 97 12/26/16 07:00 12/26/16 07:00 12/26/16 07:00 12/26/16 07:00 12/26/16 07:00 Intake and Output: 12/26/16 12/26/16 06:59 18:59 Intake Total 120 Balance 120 - Medications Medications: Current Medications Albuterol/Ipratropium (Duoneb 3 Mg/0.5 Mg (3 Ml) Ud) 3 ml INH RQ6 [facility] Last Admin: 12/26/16 13:08 Dose: 3 ml Chlordiazepoxide (Librium) 25 mg PO Q8 PRN PRN Reason: Restlessness Last Admin: 12/25/16 21:45 Dose: 25 mg Enoxaparin Sodium (Lovenox) 40 mg SC DAILY [facility] Last Admin: 12/26/16 09:49 Dose: 40 mg Guaifenesin (Mucinex La) 600 mg PO BID [facility] Last Admin: 12/26/16 09:49 Dose: 600 mg Azithromycin 500 mg/ Sodium (Chloride) 250 mls @ 250 mls/hr IVPB DAILY [facility] Last Admin: 12/26/16 09:49 Dose: 250 mls/hr Methylprednisolone (Solu-Medrol) 60 mg IVP Q12 [facility] Last Admin: 12/26/16 09:49 Dose: 60 mg Nicotine (Nicoderm Cq) 1 patch TD DAILY [facility] Last Admin: 12/26/16 09:49 Dose: 1 patch Pneumococcal Polyvalent Vaccine (Pneumovax 23 Vaccine) 0.5 ml IM .ONCE ONE Stop: 12/27/16 10:01 Fluticasone/Salmeterol (Advair Diskus 250/50) 1 puff INH RQ12 [facility] Last Admin: 12/26/16 13:08 Dose: 1 puff Tiotropium [place] (Spiriva) 18 mcg INH RQ24 [facility] Last Admin: 12/26/16 07:25 Dose: 18 mcg - Labs Labs: 12/26/16 07:04 12/26/16 07:04 - Constitutional Appears: Well, No Acute Distress - Head Exam Head Exam: ATRAUMATIC, NORMAL INSPECTION, NORMOCEPHALIC - Eye Exam Eye Exam: EOMI, PERRL - ENT Exam ENT Exam: Mucous Membranes Moist - Neck Exam Neck Exam: Full ROM, Normal Inspection - Respiratory Exam Respiratory Exam: Rhonchi, Wheezes, NORMAL BREATHING PATTERN - Cardiovascular Exam Cardiovascular Exam: REGULAR RHYTHM, +S1, +S2 - GI/Abdominal Exam GI & Abdominal Exam: Soft, Normal Bowel Sounds - Neurological Exam Neurological Exam: Alert, Awake, Oriented x3 Assessment and Plan (1) COPD with acute exacerbation Assessment & Plan: will decrease solumedrol continue neb Status: Acute
[2016-12-26] MEDS: MethylPREDNISolone 40 mg Vial IVP SCH (21:58)
[2016-12-27] MEDS: Albuterol-Ipratrop 3 mg / 0.5 (3 ml) UD INH SCH ×3 (02:04→13:15)
[2016-12-27] MEDS: Tiotropium 18 mcg Cap For Inhalation INH SCH (08:08)
[2016-12-27] MEDS: Fluticasone-Salmeterol 250-50mcg Diskus INH SCH (08:08)
[2016-12-27 08:34] VITALS: BP 100/63; PULSE 74; TEMP 98.1; O2SAT 96
[2016-12-27] MEDS ORDERED: Pneumococcal 23-Valent Vaccine IM ONE ×2 (10:00→12:15)
--- NOTE | 2016-12-27 11:39 | CP.PCM.PN ---
Subjective - Date & Time of Evaluation Date of Evaluation: 12/27/16 Time of Evaluation: 11:30 - Subjective Subjective: Pt seen and examined today, cough and congestion improved , denies any sob , fever, chills a febrile Objective - Vital Signs/Intake and Output Vital Signs (last 24 hours): Temp Pulse Resp BP Pulse Ox 98.1 F 74 20 100/63 96 12/27/16 07:00 12/27/16 07:00 12/27/16 07:00 12/27/16 07:00 12/27/16 07:00 Intake and Output: 12/27/16 12/27/16 06:59 18:59 Intake Total 600 Balance 600 - Medications Medications: Current Medications Albuterol/Ipratropium (Duoneb 3 Mg/0.5 Mg (3 Ml) Ud) 3 ml INH RQ6 [facility] Last Admin: 12/27/16 08:08 Dose: 3 ml Chlordiazepoxide (Librium) 25 mg PO Q8 PRN PRN Reason: Restlessness Last Admin: 12/26/16 21:58 Dose: 25 mg Enoxaparin Sodium (Lovenox) 40 mg SC DAILY [facility] Last Admin: 12/26/16 09:49 Dose: 40 mg Guaifenesin (Mucinex La) 600 mg PO BID [facility] Last Admin: 12/26/16 18:08 Dose: 600 mg Azithromycin 500 mg/ Sodium (Chloride) 250 mls @ 250 mls/hr IVPB DAILY [facility] Last Admin: 12/26/16 09:49 Dose: 250 mls/hr Methylprednisolone (Solu-Medrol) 40 mg IVP Q12 [facility] Last Admin: 12/26/16 21:58 Dose: 40 mg Nicotine (Nicoderm Cq) 1 patch TD DAILY [facility] Last Admin: 12/26/16 09:49 Dose: 1 patch Fluticasone/Salmeterol (Advair Diskus 250/50) 1 puff INH RQ12 [facility] Last Admin: 12/27/16 08:08 Dose: 1 puff Tiotropium [place] (Spiriva) 18 mcg INH RQ24 [facility] Last Admin: 12/27/16 08:08 Dose: 18 mcg - Labs Labs: 12/26/16 07:04 12/26/16 07:04 - Constitutional Appears: Well, No Acute Distress - Respiratory Exam Respiratory Exam: Rhonchi, NORMAL BREATHING PATTERN - Cardiovascular Exam Cardiovascular Exam: REGULAR RHYTHM, +S1, +S2 - Neurological Exam Neurological Exam: Alert, Oriented x3 Assessment and Plan (1) COPD with acute exacerbation Status: Acute - Assessment and Plan (Free Text) Assessment: A/P 51 yr old male admitted for exc. COPD Pt clinically improved with steroids and neb. tx D/w Dr. merchant, cleared for discharge home today and f/u with clinic in 1 week RX given
[2016-12-27] MEDS: Azithromycin 500 MG in Sodium Chloride 0.9% 250 ML IVPB SCH (12:00)
[2016-12-27] MEDS: MethylPREDNISolone 40 mg Vial IVP SCH (12:00)
[2016-12-27] MEDS: Enoxaparin 40 mg Syringe SC SCH (12:01)
[2016-12-27] MEDS: guaiFENesin 600 mg ER Tab PO SCH (12:01)
--- NOTE | 2016-12-27 19:56 | CP.PCM.DIS ---
Provider - Provider Date of Admission: 12/24/16 09:30 Attending physician: Ghulam Jerez MD Diagnosis - Discharge Diagnosis (1) COPD with acute exacerbation Status: Acute Hospital Course - Lab Results Lab Results: Micro Results 12/25/16 06:00 Sputum Gram Stain - Final 12/25/16 06:00 Sputum Sputum Culture - Preliminary Gram Negative Rodríguez Most Recent Lab Values WBC 14.1 K/uL (4.8-10.8) H D 12/26/16 07:04 RBC 4.75 Mil/uL (4.40-5.90) 12/26/16 07:04 Hgb 15.9 g/dL (12.0-18.0) 12/26/16 07:04 Hct 47.9 % (35.0-51.0) 12/26/16 07:04 MCV 100.8 fL (80.0-94.0) H 12/26/16 07:04 MCH 33.5 pg (27.0-31.0) H 12/26/16 07:04 MCHC 33.2 g/dL (33.0-37.0) 12/26/16 07:04 RDW 13.8 % (11.5-14.5) 12/26/16 07:04 Plt Count 135 K/uL (130-400) 12/26/16 07:04 MPV 11.9 fL (7.2-11.7) H 12/26/16 07:04 Neut % (Auto) 91.1 % (50.0-75.0) H 12/26/16 07:04 Lymph % (Auto) 3.3 % (20.0-40.0) L 12/26/16 07:04 [place] % (Auto) 5.3 % (0.0-10.0) 12/26/16 07:04 Eos % (Auto) 0.0 % (0.0-4.0) 12/26/16 07:04 Baso % (Auto) 0.3 % (0.0-2.0) 12/26/16 07:04 Neut # 12.8 K/uL (1.8-7.0) H 12/26/16 07:04 Lymph # 0.5 K/uL (1.0-4.3) L 12/26/16 07:04 [place] # 0.7 K/uL (0.0-0.8) 12/26/16 07:04 Eos # 0.0 K/uL (0.0-0.7) 12/26/16 07:04 Baso # 0.0 K/uL (0.0-0.2) 12/26/16 07:04 Neutrophils % (Manual) 91 % (50-75) H 12/26/16 07:04 Lymphocytes % (Manual) 4 % (20-40) L 12/26/16 07:04 Monocytes % (Manual) 5 % (0-10) 12/26/16 07:04 Platelet Estimate Normal (NORMAL) 12/26/16 07:04 Macrocytosis (manual) Slight 12/26/16 07:04 Sodium 138 mmol/L (132-148) 12/26/16 07:04 Potassium 4.7 mmol/L (3.6-5.2) 12/26/16 07:04 Chloride 100 mmol/L (98-107) 12/26/16 07:04 Carbon Dioxide 29 mmol/L (22-30) 12/26/16 07:04 Anion Gap 14 (10-20) 12/26/16 07:04 BUN 23 mg/dL (9-20) H 12/26/16 07:04 Creatinine 0.7 MG/DL (0.8-1.5) L 12/26/16 07:04 Est GFR ( Amer) > 60 12/26/16 07:04 Est GFR (Non-Af Amer) > 60 12/26/16 07:04 Random Glucose 130 mg/dL (75-110) H 12/26/16 07:04 Calcium 9.3 mg/dl (8.6-10.4) 12/26/16 07:04 Total Bilirubin 0.7 mg/dL (0.2-1.3) 12/24/16 07:45 AST 98 U/L (17-59) H 12/24/16 07:45 ALT 104 U/L (21-72) H 12/24/16 07:45 Alkaline Phosphatase 90 U/L (38-126) 12/24/16 07:45 Troponin I < 0.0120 ng/mL (0.00-0.120) 12/24/16 07:45 NT-Pro-B Natriuret Pep < 11.1 pg/mL (0-900) 12/24/16 07:45 Total Protein 7.7 g/dL (6.3-8.3) 12/24/16 07:45 Albumin 4.1 g/dL (3.5-5.0) 12/24/16 07:45 Globulin 3.7 gm/dL (2.2-3.9) 12/24/16 07:45 Albumin/Globulin Ratio 1.1 (1.0-2.1) 12/24/16 07:45 Urine Color Yellow (YELLOW) 12/24/16 08:39 Urine Clarity Clear (Clear) 12/24/16 08:39 Urine pH 5.0 (5.0-8.0) 12/24/16 08:39 Ur Specific [place] 1.017 (1.003-1.030) 12/24/16 08:39 Urine Protein Negative mg/dL (NEGATIVE) 12/24/16 08:39 Urine Glucose (UA) Normal mg/dL (Normal) 12/24/16 08:39 Urine Ketones Negative mg/dL (NEGATIVE) 12/24/16 08:39 Urine Blood Negative (NEGATIVE) 12/24/16 08:39 Urine Nitrate Negative (NEGATIVE) 12/24/16 08:39 Urine Bilirubin Negative (NEGATIVE) 12/24/16 08:39 Urine Urobilinogen Normal mg/dL (0.2-1.0) 12/24/16 08:39 Ur Leukocyte Esterase Neg Baljit/uL (Negative) 12/24/16 08:39 Urine WBC (Auto) < 1 /hpf (0-5) 12/24/16 08:39 Urine RBC (Auto) < 1 /hpf (0-3) 12/24/16 08:39 Calcium Oxalate Crystal Rare /hpf (<OCC) 12/24/16 08:39 Urine Opiates Screen Negative (NEGATIVE) 12/24/16 08:39 Urine Methadone Screen Negative (NEGATIVE) 12/24/16 08:39 Ur Barbiturates Screen Negative (NEGATIVE) 12/24/16 08:39 Ur Phencyclidine Scrn Negative (NEGATIVE) 12/24/16 08:39 Ur Amphetamines Screen Negative (NEGATIVE) 12/24/16 08:39 U Benzodiazepines Scrn Positive (NEGATIVE) 12/24/16 08:39 U Oth Cocaine Metabols Negative (NEGATIVE) 12/24/16 08:39 U Cannabinoids Screen Negative (NEGATIVE) 12/24/16 08:39 - Hospital Course Hospital Course: less ob, for discharge Discharge Exam - Head Exam Head Exam: ATRAUMATIC, NORMAL INSPECTION, NORMOCEPHALIC - Eye Exam Eye Exam: EOMI, Normal appearance, PERRL Pupil Exam: NORMAL ACCOMODATION - ENT Exam ENT Exam: Mucous Membranes Moist, Normal Exam, Normal Oropharynx, TM's Normal Bilaterally - Neck Exam Neck exam: Normal Inspection - Respiratory Exam Respiratory Exam: Clear to PA & Lateral, Prolonged Expiratory Phase, NORMAL BREATHING PATTERN - Cardiovascular Exam Cardiovascular Exam: REGULAR RHYTHM, +S1, +S2 - GI/Abdominal Exam GI & Abdominal Exam: Normal Bowel Sounds - Rectal Exam Rectal Exam: NORMAL INSPECTION Discharge Plan - Discharge Medications Prescriptions: Fluticasone/Salmeterol 250/50 [Advair Diskus 250/50] 1 puff INH RQ12 #1 puff Albuterol/Ipratropium [Duoneb 3 mg/0.5 mg (3 ml) UD] 3 ml INH RQ6 #50 predniSONE [Prednisone] 30 mg PO DAILY #18 tab Tiotropium [Spiriva] 18 mcg INH RQ24 #30 cap Albuterol HFA [Ventolin HFA 90 mcg/actuation (8 g)] 1 puff IH Q6 #1 inhaler Azithromycin [Zithromax [place]] 500 mg PO DAILY #3 tab - Follow Up Plan Condition: STABLE Disposition: HOME/ ROUTINE Instructions: Pneumococcal Polyvalent Vaccine (By injection), COPD (Chronic Obstructive Pulmonary Disease) (DC), COPD (Chronic Obstructive Pulmonary Disease ) (GEN) Additional Instructions: Please f/u with [facility] clinic in 1 week - Call and make appointment Continue medication as per Med. Rec.
--- NOTE | 2016-12-27 19:56 | CP.PCM.PN ---
Subjective - Date & Time of Evaluation Date of Evaluation: 12/26/16 - Subjective Subjective: less ob, less cough, no chest pain Objective - Vital Signs/Intake and Output Vital Signs (last 24 hours): Temp Pulse Resp BP Pulse Ox 98.1 F 74 20 100/63 96 12/27/16 07:00 12/27/16 07:00 12/27/16 07:00 12/27/16 07:00 12/27/16 07:00 Intake and Output: 12/27/16 12/28/16 18:59 06:59 Intake Total 700 Balance 700 - Labs Labs: 12/26/16 07:04 12/26/16 07:04 - Constitutional Appears: Non-toxic, No Acute Distress, Cachectic - Head Exam Head Exam: ATRAUMATIC, NORMAL INSPECTION, NORMOCEPHALIC - Eye Exam Eye Exam: EOMI, Normal appearance - ENT Exam ENT Exam: Mucous Membranes Moist, Normal Exam - Neck Exam Neck Exam: Normal Inspection - Respiratory Exam Respiratory Exam: Clear to Ausculation Bilateral, NORMAL BREATHING PATTERN - GI/Abdominal Exam GI & Abdominal Exam: Soft, Normal Bowel Sounds - Rectal Exam Rectal Exam: NORMAL INSPECTION Assessment and Plan (1) COPD with acute exacerbation Status: Acute
== END 2016-12-27 13:45 | disposition home or self-care (01) | DRG 88 ==
LOC: C.ER 06:11 → C.9E 09:30 → C.6T 11:28
PROVIDERS: ADMIT Internal Medicine; ATTEND Internal Medicine
DX: J44.1 Chronic obstructive pulmonary disease with (acute) exacerbation (principal); F41.9 Anxiety disorder, unspecified; R09.02 Hypoxemia; F17.200 Nicotine dependence, unspecified, uncomplicated; Z91.11 Patient's noncompliance with dietary regimen; Z91.19 Patient's noncompliance with other medical treatment and regimen

== ENCOUNTER 2017-08-25 23:48 | Inpatient (IN) | payer SELFPAY ==
[2017-08-25 23:48] VITALS: BMI 19.8
[2017-08-26] MEDS ORDERED: Albuterol-Ipratrop 3 mg / 0.5 (3 ml) UD ONE ×2 (00:08→00:27)
[2017-08-26] MEDS ORDERED: Sodium Chloride 0.9% 1,000 ML IV ONE (00:24)
--- NOTE | 2017-08-26 00:25 | C.PDOC ---
History Of Present Illness 52 year old male presents to the ED c/o intermittent, on and off SOB that started yesterday. 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 Patient had a history of asthma since he was young. Patient is able to speak only in 2-3 word sentences, reports his discomfort at 7/10. Patient denies CP, palpitations, fever, chills. Time Seen by Provider: 08/26/17 00:23 Chief Complaint (Nursing): Shortness Of Breath History Per: Patient History/Exam Limitations: no limitations Onset/Duration Of Symptoms: Days Current Symptoms Are (Timing): Still Present Initiating Event: Upper Respiratory Illness Quality: "Pain" Current Respiratory Medications: See Home Med List Severity: Severe Pain Scale Rating Of: 7 Associated Symptoms: denies: Fever, Chills, Sweating Reports Recently: Seen In ED Recent travel outside of the [place]: No Additional History Per: Patient Past Medical History Reviewed: Historical Data, Nursing Documentation, Vital Signs Vital Signs: Last Vital Signs Temp 98.5 F 08/26/17 02:38 Pulse 73 08/26/17 02:38 Resp 19 08/26/17 02:38 BP 137/89 08/26/17 02:38 Pulse Ox 89 L 08/26/17 02:38 - Medical History PMH: Anxiety, Asthma, COPD Denies: HIV, HTN, Chronic Kidney Disease, Seizures, Sexually Transmitted Disease Surgical History: No Surg Hx Family History: States: No Known Family Hx - Social History Hx Tobacco Use: Yes Hx Alcohol Use: Yes Hx Substance Use: No - Immunization History Hx Tetanus Toxoid Vaccination: No Hx Influenza Vaccination: No Hx Pneumococcal Vaccination: No Review Of Systems Constitutional: Negative for: Fever, Chills Cardiovascular: Negative for: Chest Pain, Palpitations Respiratory: Positive for: Shortness of Breath Gastrointestinal: Negative for: Vomiting Skin: Negative for: Rash Neurological: Negative for: Weakness, Numbness Physical Exam - Physical Exam Appears: Non-toxic, In Acute Distress Skin: Warm, Dry Head: Normacephalic Eye(s): bilateral: Normal Inspection Ear(s): Bilateral: Normal Nose: No Discharge Oral Mucosa: Dry Throat: No Erythema, No Exudate Neck: Supple Chest: Symmetrical Cardiovascular: Rhythm Regular, No Murmur Respiratory: Decreased Breath Sounds, No Rales, No Rhonchi, Wheezing (scattered ) Gastrointestinal/Abdominal: Soft, No Tenderness, No Guarding, No Rebound Back: Normal Inspection Extremity: Normal ROM, No Swelling Extremity: Bilateral: Normal Color And Temperature, Normal ROM Neurological/Psych: Oriented x3, Normal Speech, Normal Motor, Normal Sensation Gait: Steady ED Course And Treatment - Laboratory Results Result Diagrams: 08/26/17 00:34 08/26/17 00:34 ECG: Interpreted By Me, Viewed By Me ECG Rhythm: Sinus Rhythm (73), Nonspecific Changes O2 Sat by Pulse Oximetry: 88 Pulse Ox Interpretation: Abnormal - Radiology CXR: Interpreted by Me, Viewed By Me CXR Interpretation: Yes: COPD. No: Infiltrates, Fracture, Pnemothorax Progress Note: Plan: - EKG. - ABG. - Labs. - CXR. - Duoneb 3 ml IH. - Solumedrol 125 mg IVP. - IV fluids Critical Care Time - Critical Care Note Total Time (in mins): 30 Documented critical care: time excludes all time spent performing seperately billable procedures. Disposition Discussed With DrBennett: Russ Sandhu Comment: accepted the pt on his service and took over the care at 2:55AM Doctor Will See Patient In The: ED Counseled Patient/Family Regarding: Studies Performed, Diagnosis, Smoking Cessation - Disposition Disposition: HOSPITALIZED Disposition Time: 02:59 Condition: FAIR Forms: [facility] (Bangladeshi) - POA Present On Arrival: None - Clinical Impression Clinical Impression: COPD with acute exacerbation - Scribe Statement The provider has reviewed the documentation as recorded by the Scribe Carrington Dinh All medical record entries made by the Scribe were at my direction and personally dictated by me. I have reviewed the chart and agree that the record accurately reflects my personal performance of the history, physical exam, medical decision making, and the department course for this patient. I have also personally directed, reviewed, and agree with the discharge instructions and disposition. Decision To Admit - Pt Status Changed To: Hospital Disposition Of: Inpatient - Admit Certification Admit to Inpatient:: After my assessment, the patient will require hospitalization for at least two midnights. This is because of the severity of symptoms shown, intensity of services needed, and/or the medical risk in this patient being treated as an outpatient. - InPatient: Physician Admission Certification: I certify that this patient requires 2 or more midnights of care for the following reason:: After my assessment, the patient will require hospitalization for at least two midnights. This is because of the severity of symptoms shown, intensity of services needed, and/or the medical risk in this patient being treated as an outpatient. - . Bed Request Type: Regular Admitting Physician: Russ Sandhu Patient Diagnosis: COPD with acute exacerbation
[2017-08-26] MEDS ORDERED: Sodium Chloride 0.9% 1,000 ML ONE (00:37)
[2017-08-26 00:43] LABS: BASO # 0.1 K/uL (0.0-0.2); BASO % 1.5 % (0.0-2.0); EOS # 0.7 K/uL (0.0-0.7); HEMOGLOBIN 15.1 g/dL (12.0-18.0); LYMPH # 1.7 K/uL (1.0-4.3); LYMPH % 32.8 % (20.0-40.0); MEAN CELL VOLUME 99.3 fL (80.0-94.0); MEAN CORPUSCULAR HEMOGLOBIN 34.6 pg (27.0-31.0); MEAN CORPUSCULAR HGB CONC 34.8 g/dL (33.0-37.0); MEAN PLATELET VOLUME 11.1 fL (7.2-11.7); MONO # 0.9 K/uL (0.0-0.8); MONO % 16.9 % (0.0-10.0); NEUT # 1.8 K/uL (1.8-7.0); NEUT % 34.8 % (50.0-75.0); RBC 4.37 Mil/uL (4.40-5.90); RED CELL DISTRIBUTION WIDTH 13.3 % (11.5-14.5)
[2017-08-26 00:44] LABS: WHITE BLOOD COUNT 5.3 K/uL (4.8-10.8)
[2017-08-26] MEDS: Albuterol-Ipratrop 3 mg / 0.5 (3 ml) UD IH SCH (00:47)
[2017-08-26 00:49] LABS: ALB/GLOB RATIO 1.3 (1.0-2.1); ALBUMIN 4.1 g/dL (3.5-5.0); ALT/SGPT 66 U/L (21-72); AST/SGOT 58 U/L (17-59); BLOOD UREA NITROGEN 15 mg/dL (9-20); CALCIUM 8.9 mg/dl (8.6-10.4); GFR AFRICAN-AMERICAN > 60; GFR NON-AFRICAN AMERICAN > 60
[2017-08-26 00:50] LABS: ABG ALLEN TEST POS; ARTERIAL BLOOD GAS HCO3 25.8 mmol/L (21-28); ARTERIAL BLOOD GAS O2 SAT 95.1 % (95-98); ARTERIAL BLOOD GAS PCO2 47 mm/Hg (35-45); ARTERIAL BLOOD GAS PH 7.37 (7.35-7.45); ARTERIAL BLOOD GAS PO2 67 mm/Hg (80-100); ARTERIAL BLOOD GAS TCO2 28.6 mmol/L (22-28)
[2017-08-26 00:57] LABS: INR 0.9; PROTHROMBIN TIME 10.4 SECONDS (9.7-12.2)
[2017-08-26] MEDS ORDERED: Magnesium Sulfate 1 gm in D5W 1 GM/100 ML BAG IVPB ONE ×2 (03:04→03:28)
[2017-08-26] MEDS ORDERED: Albuterol 0.042% Inhal Sol (1.25 mg/3 mL) UD INH PRN (03:05)
--- NOTE | 2017-08-26 03:27 | CP.PCM.HP ---
<MichelleKeith kemp - Last Filed: 08/26/17 05:28> History of Present Illness - History of Present Illness History of Present Illness: CC: SOBx 1 week PMD: None FULL CODE This patient is a 52yo M w/ a PMhx of asthma/COPD who is coming to the ER for a 1wk history of SOB, and cough, with clear sputum. The patient denies fevers/ chills, sick contacts, or recent travel. The patient still smokes 1/2 pack of cigarettes a day, and has been trying to cut down. He denies any other illicit drugs. He has never been intubated. He ran out of his nebulizer medicines, and does not have any long acting inhalers. The last time he was admitted to the hospital for an asthma exacerbation was last year. He denies fevers/chills, OMER, CP, abdominal pain, N/V/D, dysuria/freq/urg or lower extremity pain/swelling. 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 Present on Admission - Present on Admission Any Indicators Present on Admission: Yes History of DVT/PE: No History of Uncontrolled Diabetes: No Urinary Catheter: No Decubitus Ulcer Present: No Past Patient History - Infectious Disease Hx of Infectious Diseases: None - Past Medical History & Family History Past Medical History?: No - Past Social History Smoking Status: Heavy Smoker > 10 Cigarettes Daily - CARDIAC Hx Hypertension: No - PULMONARY Hx Asthma: Yes Hx Chronic Obstructive Pulmonary Disease (COPD): Yes - NEUROLOGICAL Hx Seizures: No - HEENT Hx HEENT Problems: No - RENAL Hx Chronic Kidney Disease: No - ENDOCRINE/METABOLIC Hx Endocrine Disorders: No - HEMATOLOGICAL/ONCOLOGICAL Hx Human Immunodeficiency Virus (HIV): No - INTEGUMENTARY Hx Dermatological Problems: No - MUSCULOSKELETAL/RHEUMATOLOGICAL Hx Musculoskeletal Disorders: No Hx Falls: No - GASTROINTESTINAL Hx Gastrointestinal Disorders: No - GENITOURINARY/GYNECOLOGICAL Hx Sexually Transmitted Disorders: No - PSYCHIATRIC Hx Anxiety: Yes Hx Substance Use: No - SURGICAL HISTORY Hx Surgeries: No - ANESTHESIA Hx Anesthesia: No Hx Anesthesia Reactions: No Hx Malignant Hyperthermia: No Meds Allergies/Adverse Reactions: Allergies Allergy/AdvReac Type Severity Reaction Status Date / Time No Known Allergies Allergy Verified 08/26/17 00:00 Physical Exam - Constitutional Appears: Well, Non-toxic - Head Exam Head Exam: ATRAUMATIC, NORMAL INSPECTION - Eye Exam Eye Exam: EOMI, Normal appearance - ENT Exam ENT Exam: Mucous Membranes Moist - Neck Exam Neck exam: Positive for: Full Rom, Normal Inspection. Negative for: Lymphadenopathy, Meningismus, Tenderness, Thyromegaly - Respiratory Exam Respiratory Exam: Wheezes, NORMAL BREATHING PATTERN. absent: Chest Wall Tenderness, Decreased Breath Sounds, Clear to Auscultation Bilateral, Rales, Rhonchi, Respiratory Distress, Stridor - Cardiovascular Exam Cardiovascular Exam: REGULAR RHYTHM, +S1, +S2. absent: Tachycardia - GI/Abdominal Exam GI & Abdominal Exam: Normal Bowel Sounds, Soft. absent: Organomegaly, Pulsatile Mass, Rebound, Rigid, Tenderness - Rectal Exam Rectal Exam: Deferred - Extremities Exam Extremities exam: Positive for: full ROM. Negative for: calf tenderness - Back Exam Back exam: NORMAL INSPECTION. absent: CVA tenderness (L), CVA tenderness (R) - Neurological Exam Neurological exam: Alert, Normal Gait, Oriented x3 - Skin Skin Exam: Warm Results - Vital Signs Recent Vital Signs: Last Vital Signs Temp 98.5 F 08/26/17 02:38 Pulse 73 08/26/17 02:38 Resp 19 08/26/17 02:38 BP 137/89 08/26/17 02:38 Pulse Ox 88 L 08/26/17 03:05 - Labs Result Diagrams: 08/26/17 00:34 08/26/17 00:34 Labs: Laboratory Results - last 24 hr 08/26/17 08/26/17 08/26/17 00:24 00:34 00:34 WBC 5.3 D RBC 4.37 L Hgb 15.1 Hct 43.4 MCV 99.3 H MCH 34.6 H MCHC 34.8 RDW 13.3 Plt Count 157 MPV 11.1 Neut % (Auto) 34.8 L Lymph % (Auto) 32.8 Shannon % (Auto) 16.9 H Eos % (Auto) 14.0 H Baso % (Auto) 1.5 Neut # (Auto) 1.8 Lymph # (Auto) 1.7 Shannon # (Auto) 0.9 H Eos # (Auto) 0.7 Baso # (Auto) 0.1 PT 10.4 INR 0.9 APTT 35 H Puncture Site pCO2 pO2 HCO3 ABG pH ABG Total CO2 ABG O2 Saturation ABG Base Excess Des Test ABG Potassium Glucose Lactate Liter Flow Sodium 142 Potassium 3.6 Chloride 103 Carbon Dioxide 27 Anion Gap 15 BUN 15 Creatinine 0.8 Est GFR ( Amer) > 60 Est GFR (Non-Af Amer) > 60 Random Glucose 102 Calcium 8.9 Magnesium 2.1 Total Bilirubin 0.7 AST 58 ALT 66 Alkaline Phosphatase 63 Total Protein 7.2 Albumin 4.1 Globulin 3.1 Albumin/Globulin Ratio 1.3 Arterial Blood Potassium 08/26/17 00:46 WBC RBC Hgb Hct MCV MCH MCHC RDW Plt Count MPV Neut % (Auto) Lymph % (Auto) Shannon % (Auto) Eos % (Auto) Baso % (Auto) Neut # (Auto) Lymph # (Auto) Shannon # (Auto) Eos # (Auto) Baso # (Auto) PT INR APTT Puncture Site Rr pCO2 47 H pO2 67 L HCO3 25.8 ABG pH 7.37 ABG Total CO2 28.6 H ABG O2 Saturation 95.1 ABG Base Excess 1.3 Des Test Pos ABG Potassium 3.0 L Glucose 113 H Lactate 1.0 Liter Flow 8.0 Sodium 140.0 Potassium Chloride 106.0 Carbon Dioxide Anion Gap BUN Creatinine Est GFR ( Amer) Est GFR (Non-Af Amer) Random Glucose Calcium Magnesium Total Bilirubin AST ALT Alkaline Phosphatase Total Protein Albumin Globulin Albumin/Globulin Ratio Arterial Blood Potassium 3.0 L Assessment & Plan - Assessment and Plan (Free Text) Assessment: 52yo M admitted for asthma exacerbation Asthma Exacerbation -Duonebs Q6H SAVANNAH -Albuterol PRN -Mag Sulfate -IV Solumedrol 40 Q12H -patient does not know peak flow; needs to be taught -does not have pulm; will need outpatient Smoking Cessation -offered patch; 14mcg/day Proph -does not need GI prophylaxis -SCD -patient will need PMD on discharge and pulmonology referral seen and discussed with Dr. Edson Yo PGY2 Decision To Admit - Pt Status Changed To: Hospital Disposition Of: Observation - . Bed Request Type: Telemetry Admitting Physician: Russ Sandhu <Russ Sandhu - Last Filed: 08/26/17 07:10> Results - Vital Signs Recent Vital Signs: Last Vital Signs Temp 97.8 F 08/26/17 04:40 Pulse 70 08/26/17 04:40 Resp 21 08/26/17 05:10 BP 135/83 08/26/17 04:40 Pulse Ox 91 L 08/26/17 05:10 - Labs Result Diagrams: 08/26/17 00:34 08/26/17 00:34 Labs: Laboratory Results - last 24 hr 08/26/17 08/26/17 08/26/17 00:24 00:34 00:34 WBC 5.3 D RBC 4.37 L Hgb 15.1 Hct 43.4 MCV 99.3 H MCH 34.6 H MCHC 34.8 RDW 13.3 Plt Count 157 MPV 11.1 Neut % (Auto) 34.8 L Lymph % (Auto) 32.8 Shannon % (Auto) 16.9 H Eos % (Auto) 14.0 H Baso % (Auto) 1.5 Neut # (Auto) 1.8 Lymph # (Auto) 1.7 Shannon # (Auto) 0.9 H Eos # (Auto) 0.7 Baso # (Auto) 0.1 PT 10.4 INR 0.9 APTT 35 H Puncture Site pCO2 pO2 HCO3 ABG pH ABG Total CO2 ABG O2 Saturation ABG Base Excess Des Test ABG Potassium Glucose Lactate Liter Flow Sodium 142 Potassium 3.6 Chloride 103 Carbon Dioxide 27 Anion Gap 15 BUN 15 Creatinine 0.8 Est GFR ( Amer) > 60 Est GFR (Non-Af Amer) > 60 Random Glucose 102 Calcium 8.9 Magnesium 2.1 Total Bilirubin 0.7 AST 58 ALT 66 Alkaline Phosphatase 63 Total Protein 7.2 Albumin 4.1 Globulin 3.1 Albumin/Globulin Ratio 1.3 Arterial Blood Potassium Influenza Typ A,B (EIA) 08/26/17 08/26/17 00:46 03:32 WBC RBC Hgb Hct MCV MCH MCHC RDW Plt Count MPV Neut % (Auto) Lymph % (Auto) Shannon % (Auto) Eos % (Auto) Baso % (Auto) Neut # (Auto) Lymph # (Auto) Shannon # (Auto) Eos # (Auto) Baso # (Auto) PT INR APTT Puncture Site Rr pCO2 47 H pO2 67 L HCO3 25.8 ABG pH 7.37 ABG Total CO2 28.6 H ABG O2 Saturation 95.1 ABG Base Excess 1.3 Des Test Pos ABG Potassium 3.0 L Glucose 113 H Lactate 1.0 Liter Flow 8.0 Sodium 140.0 Potassium Chloride 106.0 Carbon Dioxide Anion Gap BUN Creatinine Est GFR ( Amer) Est GFR (Non-Af Amer) Random Glucose Calcium Magnesium Total Bilirubin AST ALT Alkaline Phosphatase Total Protein Albumin Globulin Albumin/Globulin Ratio Arterial Blood Potassium 3.0 L Influenza Typ A,B (EIA) Negative for flu a/b Attending/Attestation - Attestation I have personally seen and examined this patient.: Yes I have fully participated in the care of the patient.: Yes I have reviewed all pertinent clinical information: Yes Notes (Text): Assessment * COPD exacerbation, patient ran out of the albuterol, came with broncoconstriction, patient has some haziness in right base, airflow improved significantly in ER * Tobacco abuse Plan * Systemic oral prednisone * duoneb * counselled about compliance, tobacco cessation * likely dc home today if no significant recurrence of the symptoms.
[2017-08-26] MEDS: Albuterol-Ipratrop 3 mg / 0.5 (3 ml) UD INH SCH ×2 (07:41→13:51)
[2017-08-26 09:01] VITALS: BP 137/83; PULSE 73; RESP 20; TEMP 98; O2SAT 94
--- NOTE | 2017-08-26 09:43 | RAD ---
PROCEDURE: CHEST RADIOGRAPH, 1 VIEW HISTORY: SOB COMPARISON: Chest radiograph dated 12/24/2016. FINDINGS: LUNGS: Suggestion of right apical fibrotic/bullous change, nonspecific. No focal consolidation. PLEURA: No pneumothorax or pleural fluid seen. CARDIOVASCULAR: Normal. OSSEOUS STRUCTURES: Unchanged. VISUALIZED UPPER ABDOMEN: Normal. OTHER FINDINGS: None. IMPRESSION: Suggestion of right apical fibrotic/ bullous change, nonspecific. This is a new finding. CT scan can be obtained for further evaluation as clinically warranted.
[2017-08-26] MEDS ORDERED: guaiFENesin 600 mg ER Tab PO SCH (10:00)
--- NOTE | 2017-08-26 10:47 | CP.PCM.DIS ---
<Carla Corey - Last Filed: 08/26/17 10:39> Provider - Provider Date of Admission: 08/26/17 02:58 Attending physician: Russ Sandhu MD Primary care physician: [facility] Time Spent in preparation of Discharge (in minutes): 35 Diagnosis - Discharge Diagnosis (1) COPD with acute exacerbation Status: Resolved (2) Asthma exacerbation Status: Resolved (3) Smoking addiction Status: Chronic Hospital Course - Lab Results Lab Results: Most Recent Lab Values WBC 5.3 K/uL (4.8-10.8) D 08/26/17 00:34 RBC 4.37 Mil/uL (4.40-5.90) L 08/26/17 00:34 Hgb 15.1 g/dL (12.0-18.0) 08/26/17 00:34 Hct 43.4 % (35.0-51.0) 08/26/17 00:34 MCV 99.3 fL (80.0-94.0) H 08/26/17 00:34 MCH 34.6 pg (27.0-31.0) H 08/26/17 00:34 MCHC 34.8 g/dL (33.0-37.0) 08/26/17 00:34 RDW 13.3 % (11.5-14.5) 08/26/17 00:34 Plt Count 157 K/uL (130-400) 08/26/17 00:34 MPV 11.1 fL (7.2-11.7) 08/26/17 00:34 Neut % (Auto) 34.8 % (50.0-75.0) L 08/26/17 00:34 Lymph % (Auto) 32.8 % (20.0-40.0) 08/26/17 00:34 Cannon % (Auto) 16.9 % (0.0-10.0) H 08/26/17 00:34 Eos % (Auto) 14.0 % (0.0-4.0) H 08/26/17 00:34 Baso % (Auto) 1.5 % (0.0-2.0) 08/26/17 00:34 Neut # (Auto) 1.8 K/uL (1.8-7.0) 08/26/17 00:34 Lymph # (Auto) 1.7 K/uL (1.0-4.3) 08/26/17 00:34 Cannon # (Auto) 0.9 K/uL (0.0-0.8) H 08/26/17 00:34 Eos # (Auto) 0.7 K/uL (0.0-0.7) 08/26/17 00:34 Baso # (Auto) 0.1 K/uL (0.0-0.2) 08/26/17 00:34 PT 10.4 SECONDS (9.7-12.2) 08/26/17 00:24 INR 0.9 08/26/17 00:24 APTT 35 SECONDS (21-34) H 08/26/17 00:24 Puncture Site Rr 08/26/17 00:46 pCO2 47 mm/Hg (35-45) H 08/26/17 00:46 pO2 67 mm/Hg (80-100) L 08/26/17 00:46 HCO3 25.8 mmol/L (21-28) 08/26/17 00:46 ABG pH 7.37 (7.35-7.45) 08/26/17 00:46 ABG Total CO2 28.6 mmol/L (22-28) H 08/26/17 00:46 ABG O2 Saturation 95.1 % (95-98) 08/26/17 00:46 ABG Base Excess 1.3 mmol/L (-2.0-3.0) 08/26/17 00:46 Des Test Pos 08/26/17 00:46 ABG Potassium 3.0 mmol/L (3.6-5.2) L 08/26/17 00:46 Sodium 140.0 mmol/l (132-148) 08/26/17 00:46 Chloride 106.0 mmol/L (98-107) 08/26/17 00:46 Glucose 113 mg/dl (75-110) H 08/26/17 00:46 Lactate 1.0 mmol/L (0.7-2.1) 08/26/17 00:46 Liter Flow 8.0 08/26/17 00:46 Sodium 142 mmol/L (132-148) 08/26/17 00:34 Potassium 3.6 mmol/L (3.6-5.2) 08/26/17 00:34 Chloride 103 mmol/L (98-107) 08/26/17 00:34 Carbon Dioxide 27 mmol/L (22-30) 08/26/17 00:34 Anion Gap 15 (10-20) 08/26/17 00:34 BUN 15 mg/dL (9-20) 08/26/17 00:34 Creatinine 0.8 mg/dL (0.8-1.5) 08/26/17 00:34 Est GFR ( Amer) > 60 05 00:34 Est GFR (Non-Af Amer) > 60 08/26/17 00:34 Random Glucose 102 mg/dL (75-110) 08/26/17 00:34 Calcium 8.9 mg/dl (8.6-10.4) 08/26/17 00:34 Magnesium 2.1 mg/dL (1.6-2.3) 08/26/17 00:34 Total Bilirubin 0.7 mg/dL (0.2-1.3) 08/26/17 00:34 AST 58 U/L (17-59) 08/26/17 00:34 ALT 66 U/L (21-72) 08/26/17 00:34 Alkaline Phosphatase 63 U/L (38-126) 08/26/17 00:34 Total Protein 7.2 g/dL (6.3-8.3) 08/26/17 00:34 Albumin 4.1 g/dL (3.5-5.0) 08/26/17 00:34 Globulin 3.1 gm/dL (2.2-3.9) 08/26/17 00:34 Albumin/Globulin Ratio 1.3 (1.0-2.1) 08/26/17 00:34 Arterial Blood Potassium 3.0 mmol/L (3.6-5.2) L 08/26/17 00:46 Influenza Typ A,B (EIA) Negative for flu a/b (NEGATIVE) 08/26/17 03:32 - Hospital Course Hospital Course: HPI: "This patient is a 52yo M w/ a PMhx of asthma/COPD who is coming to the ER for a 1wk history of SOB, and cough, with clear sputum. The patient denies fevers/chills, sick contacts, or recent travel. The patient still smokes 1/2 pack of cigarettes a day, and has been trying to cut down. He denies any other illicit drugs. He has never been intubated. He ran out of his nebulizer medicines, and does not have any long acting inhalers. The last time he was admitted to the hospital for an asthma exacerbation was last year. He denies fevers/chills, OMER, CP, abdominal pain, N/V/D, dysuria/freq/urg or lower extremity pain/swelling." Patient was admitted for COPD/ Asthma exacerbation. Patient given IV Solumedrol in ED and Duonebs and Magnesium Sulfate. Patient continued on Duonebs and iv Solumedrol. Patient's breathing greatly improved. Patient explained importance of smoking cessation and following up with clinic. Patient given nicotine patch for his tobacco abuse. Patient will need to continue using nicotine patches upon discharge and was explained the importance of smoking cessation. Upon discharge patient able to walk around with no shortness of breath. Patient feeling much better. Discharge Exam - Head Exam Head Exam: ATRAUMATIC, NORMAL INSPECTION - Eye Exam Eye Exam: EOMI, Normal appearance Pupil Exam: NORMAL ACCOMODATION - ENT Exam ENT Exam: Mucous Membranes Moist - Respiratory Exam Respiratory Exam: Wheezes (mild ), NORMAL BREATHING PATTERN. absent: Rales, Rhonchi, Respiratory Distress - Cardiovascular Exam Cardiovascular Exam: REGULAR RHYTHM, RRR, +S1, +S2 - GI/Abdominal Exam GI & Abdominal Exam: Normal Bowel Sounds, Soft. absent: Distended, Tenderness - Extremities Exam Extremities exam: normal inspection - Neurological Exam Neurological exam: Alert, Oriented x3 - Psychiatric Exam Psychiatric exam: Normal Affect, Normal Mood - Skin Skin Exam: Intact, Normal Color, Warm Discharge Plan - Discharge Medications Prescriptions: Albuterol 0.083% [Albuterol 0.083% Inhal Ina (2.5 mg/3 ml) UD] 2.5 mg IH Q4H PRN #30 neb PRN Reason: Shortness Of Breath Albuterol Sulfate [Proair Hfa] 0.09 mg IH Q4H PRN #1 inh PRN Reason: Shortness Of Breath Nicotine 14 mg/24 hr [Nicoderm CQ] 1 patch TD Q48H #5 patch predniSONE [predniSONE Tab] 10 mg PO DAILY PRN #30 tab PRN Reason: Shortness Of Breath - Follow Up Plan Condition: FAIR Disposition: HOME/ ROUTINE Instructions: Quitting Smoking for Older Adults, Smoking: Not Just Harmful to Your Lungs and Heart, Quitting Smoking, Exacerbation of COPD (DC), Medicines for Chronic Obstructive Pulmonary Disease (COPD), Albuterol, Nicotine, Prednisone, Breathing Exercises Additional Instructions: Patient stable for discharge as per Dr. Lerma. Patient to follow up with [facility] within 1 week. Patient will need a Pulmonology referral from clinic. Patient stressed importance of smoking cessation. Patient to use albuterol inhaler q4h as needed, albuterol nebulizer q4h as needed, Prednisone 10mg daily as needed, and Nicotine patch every other day. Patient to please return to Emergency Room if symptoms return. Patient explained instructions who understands and agrees. Referrals: [facility] at [facility] [Outside] <Yasmany Lerma - Last Filed: 08/26/17 15:00> Provider - Provider Date of Admission: 08/26/17 02:58 Attending physician: Russ Sandhu MD Hospital Course - Lab Results Lab Results: Most Recent Lab Values WBC 5.3 K/uL (4.8-10.8) D 08/26/17 00:34 RBC 4.37 Mil/uL (4.40-5.90) L 08/26/17 00:34 Hgb 15.1 g/dL (12.0-18.0) 08/26/17 00:34 Hct 43.4 % (35.0-51.0) 08/26/17 00:34 MCV 99.3 fL (80.0-94.0) H 08/26/17 00:34 MCH 34.6 pg (27.0-31.0) H 08/26/17 00:34 MCHC 34.8 g/dL (33.0-37.0) 08/26/17 00:34 RDW 13.3 % (11.5-14.5) 08/26/17 00:34 Plt Count 157 K/uL (130-400) 08/26/17 00:34 MPV 11.1 fL (7.2-11.7) 08/26/17 00:34 Neut % (Auto) 34.8 % (50.0-75.0) L 08/26/17 00:34 Lymph % (Auto) 32.8 % (20.0-40.0) 08/26/17 00:34 Cannon % (Auto) 16.9 % (0.0-10.0) H 08/26/17 00:34 Eos % (Auto) 14.0 % (0.0-4.0) H 08/26/17 00:34 Baso % (Auto) 1.5 % (0.0-2.0) 08/26/17 00:34 Neut # (Auto) 1.8 K/uL (1.8-7.0) 08/26/17 00:34 Lymph # (Auto) 1.7 K/uL (1.0-4.3) 08/26/17 00:34 Cannon # (Auto) 0.9 K/uL (0.0-0.8) H 08/26/17 00:34 Eos # (Auto) 0.7 K/uL (0.0-0.7) 08/26/17 00:34 Baso # (Auto) 0.1 K/uL (0.0-0.2) 08/26/17 00:34 PT 10.4 SECONDS (9.7-12.2) 08/26/17 00:24 INR 0.9 08/26/17 00:24 APTT 35 SECONDS (21-34) H 08/26/17 00:24 Puncture Site Rr 08/26/17 00:46 pCO2 47 mm/Hg (35-45) H 08/26/17 00:46 pO2 67 mm/Hg (80-100) L 08/26/17 00:46 HCO3 25.8 mmol/L (21-28) 08/26/17 00:46 ABG pH 7.37 (7.35-7.45) 08/26/17 00:46 ABG Total CO2 28.6 mmol/L (22-28) H 08/26/17 00:46 ABG O2 Saturation 95.1 % (95-98) 08/26/17 00:46 ABG Base Excess 1.3 mmol/L (-2.0-3.0) 08/26/17 00:46 Des Test Pos 08/26/17 00:46 ABG Potassium 3.0 mmol/L (3.6-5.2) L 08/26/17 00:46 Sodium 140.0 mmol/l (132-148) 08/26/17 00:46 Chloride 106.0 mmol/L (98-107) 08/26/17 00:46 Glucose 113 mg/dl (75-110) H 08/26/17 00:46 Lactate 1.0 mmol/L (0.7-2.1) 08/26/17 00:46 Liter Flow 8.0 05 00:46 Sodium 142 mmol/L (132-148) 08/26/17 00:34 Potassium 3.6 mmol/L (3.6-5.2) 08/26/17 00:34 Chloride 103 mmol/L (98-107) 08/26/17 00:34 Carbon Dioxide 27 mmol/L (22-30) 08/26/17 00:34 Anion Gap 15 (10-20) 08/26/17 00:34 BUN 15 mg/dL (9-20) 08/26/17 00:34 Creatinine 0.8 mg/dL (0.8-1.5) 08/26/17 00:34 Est GFR ( Amer) > 60 05 00:34 Est GFR (Non-Af Amer) > 60 08/26/17 00:34 Random Glucose 102 mg/dL (75-110) 08/26/17 00:34 Calcium 8.9 mg/dl (8.6-10.4) 08/26/17 00:34 Magnesium 2.1 mg/dL (1.6-2.3) 08/26/17 00:34 Total Bilirubin 0.7 mg/dL (0.2-1.3) 08/26/17 00:34 AST 58 U/L (17-59) 08/26/17 00:34 ALT 66 U/L (21-72) 08/26/17 00:34 Alkaline Phosphatase 63 U/L (38-126) 08/26/17 00:34 Total Protein 7.2 g/dL (6.3-8.3) 08/26/17 00:34 Albumin 4.1 g/dL (3.5-5.0) 08/26/17 00:34 Globulin 3.1 gm/dL (2.2-3.9) 08/26/17 00:34 Albumin/Globulin Ratio 1.3 (1.0-2.1) 08/26/17 00:34 Arterial Blood Potassium 3.0 mmol/L (3.6-5.2) L 08/26/17 00:46 Influenza Typ A,B (EIA) Negative for flu a/b (NEGATIVE) 08/26/17 03:32 Attending/Attestation - Attestation I have personally seen and examined this patient.: Yes I have fully participated in the care of the patient.: Yes I have reviewed all pertinent clinical information, including history, physical exam and plan: Yes Notes (Text): 08/26/17 14:56 Medical attending: Patient was seen and examined by me. Agree with the above note by the resident The patient was able to stand and walk. He did not have difficulty with walking. There was still minimal wheezing on exam. He understands he needs to decrease the smoking. Also he needed refill on medications and asked for nebulizer albuterol vials as well, and there will also be a short course of oral prednisone tablets. \\ His chest XRAY and lab work were stable thank you Yasmany Lerma
[2017-08-26] MEDS ORDERED: MethylPREDNISolone 40 mg Vial IVP SCH (12:00)
--- NOTE | 2017-08-26 12:59 | CARD ---
APPROVED REPORT EKG Measurement Heart [id number] <Conclusion> Normal sinus rhythm Normal ECG
== END 2017-08-26 14:02 | disposition home or self-care (01) | DRG 191 ==
LOC: C.ER 23:48 → C.6T 08-26 02:58
PROVIDERS: ADMIT Internal Medicine; ATTEND Internal Medicine
DX: J44.1 Chronic obstructive pulmonary disease with (acute) exacerbation (principal); J45.901 Unspecified asthma with (acute) exacerbation; F17.210 Nicotine dependence, cigarettes, uncomplicated

== ENCOUNTER 2017-12-15 15:32 | Emergency (ER) | payer MEDICAID ==
[2017-12-15 15:33] VITALS: BMI 19.8
[2017-12-15] MEDS ORDERED: Tdap Vaccine 0.5 ml Vial (10-64 yrs) IM ONE ×2 (16:23→16:41)
--- NOTE | 2017-12-15 16:55 | C.PDOC ---
Time Seen by Provider: 12/15/17 16:05 Chief Complaint (Nursing): Lower Extremity Problem/Injury Past Medical History Vital Signs: Last Vital Signs Temp 98.6 F 12/15/17 15:48 Pulse 84 12/15/17 15:48 Resp 17 12/15/17 15:48 BP 123/82 12/15/17 15:48 Pulse Ox 94 L 12/15/17 15:48 - Medical History PMH: Anxiety, Asthma, COPD Denies: HIV, HTN, Chronic Kidney Disease, Seizures, Sexually Transmitted Disease Family History: States: Unknown Family Hx - Social History Hx Tobacco Use: Yes Hx Alcohol Use: Yes (2 beers) Hx Substance Use: No - Immunization History Hx Tetanus Toxoid Vaccination: No Hx Influenza Vaccination: No Hx Pneumococcal Vaccination: No ED Course And Treatment O2 Sat by Pulse Oximetry: 94 Disposition - Disposition Forms: [employer] (Citizen Of [place])
--- NOTE | 2017-12-15 16:55 | C.PDOC ---
History Of Present Illness 52 y/o male presents to ED for evaluation of puncture wound sustained to right big inner toe 1 week ago when walking outside with sandals. Patient states wound has began to heal but feels as if something is in wound and requests tetanus vaccine. Patient denies new injury, numbness, weakness or any other complaints at this time. Time Seen by Provider: 12/15/17 16:05 Chief Complaint (Nursing): Lower Extremity Problem/Injury History Per: Patient History/Exam Limitations: no limitations Onset/Duration Of Symptoms: Days Current Symptoms Are (Timing): Still Present Past Medical History Reviewed: Historical Data, Nursing Documentation, Vital Signs Vital Signs: Last Vital Signs Temp 98.8 F 12/15/17 17:06 Pulse 73 12/15/17 17:06 Resp 18 12/15/17 17:06 BP 140/80 12/15/17 17:06 Pulse Ox 98 12/15/17 17:06 - Medical History PMH: Anxiety, Asthma, COPD Surgical History: No Surg Hx Family History: States: No Known Family Hx - Social History Hx Tobacco Use: Yes Hx Alcohol Use: Yes (2 beers) Hx Substance Use: No - Immunization History Hx Tetanus Toxoid Vaccination: No Hx Influenza Vaccination: No Hx Pneumococcal Vaccination: No Review Of Systems Musculoskeletal: Positive for: Foot Pain Skin: Negative for: Rash Neurological: Negative for: Weakness, Numbness Physical Exam - Physical Exam Appears: Non-toxic, No Acute Distress Skin: Warm, Dry, No Rash, Other (healed puncture wound to lateral aspect of right toe) Head: Atraumatic, Normacephalic Eye(s): bilateral: Normal Inspection Oral Mucosa: Moist Extremity: Capillary Refill (<2 seconds), No Deformity Extremity: Bilateral: Normal ROM Pulses: Right Dorsalis Pedis: Normal Neurological/Psych: Oriented x3, Normal Speech, Normal Motor, Normal Sensation ED Course And Treatment O2 Sat by Pulse Oximetry: 94 (RA) Pulse Ox Interpretation: Normal Medical Decision Making Medical Decision Making: xrays are negative for fracture or foreign body. Tetanus administered. no evidence of cellulitis. Disposition - Disposition Disposition: HOME/ ROUTINE Disposition Time: 16:55 Condition: GOOD Additional Instructions: Wash the wound with soap and water. Return if worsened. 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 - Scribe Statement The provider has reviewed the documentation as recorded by the Joshua Bass All medical record entries made by the Joshua were at my direction and personally dictated by me. I have reviewed the chart and agree that the record accurately reflects my personal performance of the history, physical exam, medical decision making, and the department course for this patient. I have also personally directed, reviewed, and agree with the discharge instructions and disposition.
[2017-12-15 17:11] VITALS: BP 140/80; PULSE 73; RESP 18; TEMP 98.8
--- NOTE | 2017-12-15 18:32 | RAD ---
PROCEDURE: Radiographs of the right great toe. TECHNIQUE:: AP radiograph of the right foot, with oblique and lateral view of the right great toe. COMPARISON: None. FINDINGS: BONES: Normal. No fracture. JOINTS: Normal. SOFT TISSUES: Normal. OTHER FINDINGS: None. IMPRESSION: Normal right great toe radiographs.
[2017-12-19 12:28] VITALS: O2SAT 94
== END 2017-12-15 17:06 | disposition home or self-care (01) ==
LOC: C.ER 15:32
DX: S91.131A Puncture wound without foreign body of right great toe without damage to nail, initial encounter (principal); X58.XXXA Exposure to other specified factors, initial encounter; Y92.89 Other specified places as the place of occurrence of the external cause; Z23 Encounter for immunization

== ENCOUNTER 2018-01-25 19:42 | Emergency (ER) | payer MEDICAID, OTHER ==
[2018-01-25 19:43] VITALS: BMI 19.8
[2018-01-25] MEDS ORDERED: Lidocaine 2% w Epi 1:100,000 Inj IJ STA (20:57)
[2018-01-25] MEDS ORDERED: Tdap Vaccine 0.5 ml Vial (10-64 yrs) IM ONE (20:57)
--- NOTE | 2018-01-25 20:57 | C.PDOC ---
History Of Present Illness 52 y/o male presents to the ED accompanied by son, s/p trip and fall. Patient admits to drinking this evening. No LOC. Fall was witnessed by son. Otherwise patient denies any severe headache, vomiting, numbness, tingling, focal weakness, visual changes, or other injury. Tetanus is up to date. Time Seen by Provider: 01/25/18 20:51 Chief Complaint (Nursing): Abnormal Skin Integrity History Per: Patient History/Exam Limitations: no limitations Onset/Duration Of Symptoms: Mins Current Symptoms Are (Timing): Still Present Past Medical History Reviewed: Historical Data, Nursing Documentation, Vital Signs Vital Signs: Last Vital Signs Temp 98.2 F 01/25/18 19:46 Pulse 94 H 01/25/18 19:46 Resp 20 01/25/18 19:46 BP 132/87 01/25/18 19:46 Pulse Ox 98 01/25/18 19:46 - Medical History PMH: Anxiety, Asthma, COPD Denies: HIV, HTN, Chronic Kidney Disease, Seizures, Sexually Transmitted Disease Family History: States: Unknown Family Hx - Social History Hx Tobacco Use: Yes Hx Alcohol Use: Yes (2 beers) Hx Substance Use: No - Immunization History Hx Tetanus Toxoid Vaccination: Yes Hx Influenza Vaccination: No Hx Pneumococcal Vaccination: No Review Of Systems Eyes: Negative for: Vision Change Cardiovascular: Negative for: Chest Pain Respiratory: Negative for: Shortness of Breath Gastrointestinal: Negative for: Nausea, Vomiting, Abdominal Pain Musculoskeletal: Negative for: Neck Pain, Back Pain Neurological: Positive for: Other (Head injury, without LOC). Negative for: Weakness, Numbness, Incoordination, Change in Speech, Confusion, Dizziness Physical Exam - Physical Exam Appears: Non-toxic, No Acute Distress Skin: Warm, Dry Head: Normacephalic, No Swelling, Laceration (7 cm linear laceration to parietal scalp) Eye(s): bilateral: Normal Inspection, PERRL, EOMI Neck: Normal ROM, No Midline Cervical Tenderness, Supple Chest: Symmetrical Cardiovascular: Rhythm Regular, No Murmur Respiratory: Normal Breath Sounds, No Accessory Muscle Use Gastrointestinal/Abdominal: Soft, No Tenderness, No Distention Extremity: Bilateral: Atraumatic, Normal Color And Temperature Neurological/Psych: Normal Speech, Normal Cranial Nerves, Other (+ Alcohol on breath, responsive to questions, alert, awake) ED Course And Treatment O2 Sat by Pulse Oximetry: 98 (RA) Pulse Ox Interpretation: Normal Laceration - Laceration Repair posterior scalp Wound Length (In cm): 7 Description Of Wound: Linear Wound Cleansed With: Betadine, Sterile Saline Anesthesia: Lidocaine 1%, With Epi Wound Examination: Irrigated With Saline, No FB With Wound Exploration Wound Closure: Buhl (x13) Wound Complexity: Simple Medical Decision Making Medical Decision Making: Impression: 52 yo male with head laceration s/p fall, No LOC Initial Plan: --Lidocaine ordered for laceration repair --Pending Head CT --Bacitracin and sterile wound dressing applied Patient tolerated procedure well. Educated patient and family regarding wound care. Discussed return precautions and the need for follow up. Disposition Counseled Patient/Family Regarding: Diagnosis, Need For Followup - Disposition Referrals: [facility] [Outside] [facility] [Outside] Disposition: HOME/ ROUTINE Disposition Time: 23:45 Condition: STABLE Additional Instructions: ALEXI OWUSU, thank you for letting us take care of you today. Your provider was Byron Alcaraz DO and you were treated for ETOH/FALL. The emergency medical care you received today was directed at your acute symptoms. If you were prescribed any medication, please fill it and take as directed. It may take several days for your symptoms to resolve. Return to the Emergency Department if your symptoms worsen, do not improve, or if you have any other problems. Please contact your doctor or call one of the physicians/clinics you have been referred to that are listed on the Patient Visit Information form that is included in your discharge packet. Bring any paperwork you were given at discharge with you along with any medications you are taking to your follow up visit. Our treatment cannot replace ongoing medical care by a primary care provider outside of the emergency department. Thank you for allowing the [facility] team to be part of your care today. Keep kirit clean and dry at all times. Follow up with your doctor in 10 days for kirit removal. Instructions: Alcohol Use - When Is Drinking a Problem?, Laceration Repair With Buhl (DC) Forms: [employer] (Syriac) - POA Present On Arrival: Falls Or Trauma - Clinical Impression Clinical Impression: Alcohol abuse, Scalp laceration - Scribe Statement The provider has reviewed the documentation as recorded by the Scribe (Luzmaria Maddox) Provider Attestation: All medical record entries made by the Scribe were at my direction and personally dictated by me. I have reviewed the chart and agree that the record accurately reflects my personal performance of the history, physical exam, medical decision making, and the department course for this patient. I have also personally directed, reviewed, and agree with the discharge instructions and disposition.
[2018-01-25] MEDS ORDERED: Tetanus/Diphtheria Toxoids 0.5 ml Syringe IM ONE (21:17)
[2018-01-25] MEDS ORDERED: Bacitracin 500 Units/gm Oint Foilpak UD TOP ONE (23:48)
[2018-01-25] MEDS ORDERED: Bacitracin 500 Units/gm Oint Foilpak UD ONE (23:54)
[2018-01-26] MEDS ORDERED: Bacitracin 500 Units/gm Oint Foilpak UD ONE (00:02)
[2018-01-26 00:15] VITALS: BP 130/85; PULSE 84; RESP 16; TEMP 98.7
[2018-01-26 02:55] VITALS: O2SAT 98
--- NOTE | 2018-01-26 07:13 | CT ---
Date of service: 01/25/2018 PROCEDURE: CT HEAD WITHOUT CONTRAST. HISTORY: head laceration/trauma COMPARISON: 09/23/2016 TECHNIQUE: Axial computed tomography images were obtained through the head/brain without intravenous contrast. Radiation dose: Total exam DLP = 968 mGy-cm. This CT exam was performed using one or more of the following dose reduction techniques: Automated exposure control, adjustment of the mA and/or kV according to patient size, and/or use of iterative reconstruction technique. FINDINGS: HEMORRHAGE: No intracranial hemorrhage. BRAIN: No mass effect or edema. No atrophy or chronic microvascular ischemic changes. VENTRICLES: Unremarkable. No hydrocephalus. CALVARIUM: Unremarkable. PARANASAL SINUSES: Unremarkable as visualized. No significant inflammatory changes. MASTOID AIR CELLS: Unremarkable as visualized. No inflammatory changes. OTHER FINDINGS: None. IMPRESSION: No acute intracranial abnormality. If symptoms persists, consider correlation with MRI. These findings were preliminarily reported at 10:20 p.m. on 01/25/[address] Adonay Rivas from [employer].
== END 2018-01-26 00:15 | disposition home or self-care (01) ==
LOC: C.ER 19:42
DX: S01.01XA Laceration without foreign body of scalp, initial encounter (principal); W01.0XXA Fall on same level from slipping, tripping and stumbling without subsequent striking against object, initial encounter; F10.10 Alcohol abuse, uncomplicated; Y90.9 Presence of alcohol in blood, level not specified

== ENCOUNTER 2018-02-08 20:26 | Emergency (ER) | payer OTHER ==
[2018-02-08 20:26] VITALS: BMI 19.8
[2018-02-08 21:34] VITALS: BP 117/65; PULSE 84; RESP 18; TEMP 98.3; O2SAT 96
--- NOTE | 2018-02-08 21:48 | C.PDOC ---
History Of Present Illness 52 year old male presents to the ED for suture removal. Patient has kirit placed to the posterior aspect of his head, wound looks clean, dry and intact. Patient denies fever, chills, headache, visual changes, dizziness, nausea, vomit, weakness, numbness. Time Seen by Provider: 02/08/18 21:37 Chief Complaint (Nursing): Abnormal Skin Integrity History Per: Patient History/Exam Limitations: no limitations Onset/Duration Of Symptoms: Days Current Symptoms Are (Timing): Better Location Of Injury: Posterior: Head Quality Of Symptoms: Other Recent travel outside of the [place]: No Additional History Per: Patient Past Medical History Reviewed: Historical Data, Nursing Documentation, Vital Signs Vital Signs: Last Vital Signs Temp 98.3 F 02/08/18 21:30 Pulse 84 02/08/18 21:30 Resp 18 02/08/18 21:30 BP 117/65 02/08/18 21:30 Pulse Ox 96 02/08/18 21:30 - Medical History PMH: Anxiety, Asthma, COPD Denies: HIV, HTN, Chronic Kidney Disease, Seizures, Sexually Transmitted Disease Surgical History: No Surg Hx Family History: States: Unknown Family Hx - Social History Hx Tobacco Use: Yes Hx Alcohol Use: Yes (2 beers) Hx Substance Use: No - Immunization History Hx Tetanus Toxoid Vaccination: Yes Hx Influenza Vaccination: No Hx Pneumococcal Vaccination: No Review Of Systems Constitutional: Negative for: Fever, Chills Eyes: Negative for: Vision Change Gastrointestinal: Negative for: Nausea, Vomiting Musculoskeletal: Negative for: Neck Pain Skin: Negative for: Rash Neurological: Negative for: Weakness, Numbness, Headache, Dizziness Physical Exam - Physical Exam Appears: Non-toxic, No Acute Distress Skin: Normal Color, Warm, Dry Head: Atraumatic, Normacephalic, Other (13 kirit intact to posterior head) Eye(s): bilateral: Normal Inspection, PERRL, EOMI Neck: Normal ROM, No Midline Cervical Tenderness, Supple Chest: Symmetrical Respiratory: No Wheezing Extremity: Normal ROM, No Tenderness, No Swelling Neurological/Psych: Oriented x3, Normal Speech Gait: Steady ED Course And Treatment O2 Sat by Pulse Oximetry: 96 (ON RA) Pulse Ox Interpretation: Normal Medical Decision Making Medical Decision Making: Impression: wound check Plan: * kirit were removed without difficulty, wound looks clean, dry and healing well. Disposition Counseled Patient/Family Regarding: Diagnosis, Need For Followup - Disposition Referrals: [facility] [Outside] [email or web address] [Outside] Disposition: HOME/ ROUTINE Disposition Time: 21:48 Condition: GOOD Additional Instructions: Can wash hair and resume everything normal Instructions: Staple Removal Forms: [employer] (Nicaraguan) - POA Present On Arrival: None - Clinical Impression Clinical Impression: Removal of kirit - PA / SALES TRAINING COORDINATOR / Resident Statement MD/DO has reviewed & agrees with the documentation as recorded. - Scribe Statement The provider has reviewed the documentation as recorded by the Scribe Carrington Dinh All medical record entries made by the Scribe were at my direction and personally dictated by me. I have reviewed the chart and agree that the record accurately reflects my personal performance of the history, physical exam, medical decision making, and the department course for this patient. I have also personally directed, reviewed, and agree with the discharge instructions and disposition.
== END 2018-02-08 21:58 | disposition home or self-care (01) ==
LOC: C.ER 20:26
DX: Z48.02 Encounter for removal of sutures (principal)

== ENCOUNTER 2018-03-08 12:09 | Emergency (ER) | payer OTHER ==
[2018-03-08 12:21] VITALS: BMI 19.5
[2018-03-08 12:23] VITALS: RESP 18
--- NOTE | 2018-03-08 13:06 | C.PDOC ---
History Of Present Illness 52 y/o male presents to the ER requesting detox from ETOH. Patient states that his last drink was today. Patient denies having suicidal ideation, homicidal ideation, and active physical complaints. Time Seen by Provider: 03/08/18 13:02 Chief Complaint (Nursing): Substance Abuse History Per: Patient History/Exam Limitations: no limitations Past Medical History Reviewed: Historical Data, Nursing Documentation, Vital Signs Vital Signs: Last Vital Signs Temp 98.8 F 03/08/18 12:20 Pulse 84 03/08/18 12:20 Resp 18 03/08/18 12:20 BP 146/103 H 03/08/18 12:20 Pulse Ox 94 L 03/08/18 12:20 - Medical History PMH: Anxiety, Asthma, COPD Denies: HIV, HTN, Chronic Kidney Disease, Seizures, Sexually Transmitted Disease Surgical History: No Surg Hx Family History: States: No Known Family Hx - Social History Hx Tobacco Use: Yes Hx Alcohol Use: Yes Hx Substance Use: No - Immunization History Hx Tetanus Toxoid Vaccination: No Hx Influenza Vaccination: Yes Hx Pneumococcal Vaccination: No Review Of Systems Except As Marked, All Systems Reviewed And Found Negative. Constitutional: Negative for: Fever, Chills Psych: Negative for: Suicidal ideation Physical Exam - Physical Exam Appears: No Acute Distress Skin: Normal Color, Warm, Dry Head: Atraumatic, Normacephalic Eye(s): bilateral: Normal Inspection Nose: Normal Oral Mucosa: Moist Neck: Supple Chest: Symmetrical Cardiovascular: Rhythm Regular Respiratory: Normal Breath Sounds, No Rales, No Rhonchi, No Wheezing Gastrointestinal/Abdominal: Normal Exam, Soft, No Tenderness, No Guarding, No Rebound Neurological/Psych: Oriented x3, Normal Speech ED Course And Treatment O2 Sat by Pulse Oximetry: 94 (RA) Pulse Ox Interpretation: Normal Medical Decision Making Medical Decision Making: Patient has been informed that there are no detox beds available.Patient has been discharged and instructed to call to check for detox beds. upon dc, pt now states he is sob. h/o of asthma/cpod. nebs steriods cxr ordered. wheezing b/l. shortly after recieivng neb, priro to cxr, pt eloped from er. Disposition - Disposition Disposition: ELOPEMENT - ER ONLY Disposition Time: 15:00 Condition: UNKNOWN Additional Instructions: return to er with worsening symptoms or concerns. please calll for the detox bed. Instructions: Alcohol Use - When Is Drinking a Problem? Forms: [employer] (Kyrgyz) - Clinical Impression Clinical Impression: Alcohol abuse, Asthma - Scribe Statement The provider has reviewed the documentation as recorded by the Romeoibe Chase Becker Provider Attestation: All medical record entries made by the Romeoibe were at my direction and personally dictated by me. I have reviewed the chart and agree that the record accurately reflects my personal performance of the history, physical exam, medical decision making, and the department course for this patient. I have also personally directed, reviewed, and agree with the discharge instructions and disposition.
[2018-03-08 14:59] VITALS: BP 132/76; PULSE 79; TEMP 98.3
[2018-03-08] MEDS ORDERED: Albuterol-Ipratrop 3 mg / 0.5 (3 ml) UD INH STA ×2 (15:07→15:08)
[2018-03-08 15:23] VITALS: O2SAT 94
== END 2018-03-08 16:01 | disposition left against medical advice (07) ==
LOC: C.ER 12:09
DX: F10.10 Alcohol abuse, uncomplicated (principal); J45.909 Unspecified asthma, uncomplicated

== ENCOUNTER 2018-03-08 17:31 | Inpatient (IN) | payer OTHER ==
[2018-03-08 17:31] VITALS: BMI 19.5
[2018-03-08] MEDS ORDERED: Albuterol-Ipratrop 3 mg / 0.5 (3 ml) UD ONE ×2 (17:37→17:54)
[2018-03-08] MEDS ORDERED: Albuterol-Ipratrop 3 mg / 0.5 (3 ml) UD INH STA ×2 (17:38)
[2018-03-08 17:42] VITALS: RESP 20
--- NOTE | 2018-03-08 17:42 | C.PDOC ---
History Of Present Illness 52 y/o male,w/PMhx of ETOH abuse and COPD, presents to the ER complaining of shortness of breath and wheezing. Patient was evaluated in [facility] earlier today, however he eloped before completing treatment. Patient denies having CP, fever, and chills. Time Seen by Provider: 03/08/18 17:35 Chief Complaint (Nursing): Shortness Of Breath History Per: Patient History/Exam Limitations: no limitations Onset/Duration Of Symptoms: Hrs Current Symptoms Are (Timing): Still Present Severity: Moderate Past Medical History Reviewed: Historical Data, Nursing Documentation, Vital Signs Vital Signs: Last Vital Signs Temp 98.6 F 03/08/18 17:36 Pulse 87 03/08/18 17:36 Resp 20 03/08/18 17:36 BP 145/86 03/08/18 17:36 Pulse Ox 91 L 03/08/18 17:36 - Medical History PMH: Anxiety, Asthma, COPD Denies: HIV, HTN, Chronic Kidney Disease, Seizures, Sexually Transmitted Disease Surgical History: No Surg Hx Family History: States: No Known Family Hx - Social History Hx Tobacco Use: Yes Hx Alcohol Use: Yes Hx Substance Use: No - Immunization History Hx Tetanus Toxoid Vaccination: No Hx Influenza Vaccination: Yes Hx Pneumococcal Vaccination: No Review Of Systems Except As Marked, All Systems Reviewed And Found Negative. Constitutional: Negative for: Fever, Chills Cardiovascular: Negative for: Chest Pain Respiratory: Positive for: Shortness of Breath, Wheezing Gastrointestinal: Negative for: Nausea, Vomiting Physical Exam - Physical Exam Appears: Non-toxic, No Acute Distress Skin: Normal Color, Warm, Dry Head: Atraumatic, Normacephalic Eye(s): bilateral: Normal Inspection Nose: Normal Oral Mucosa: Moist Neck: Supple Chest: Symmetrical Cardiovascular: Rhythm Regular Respiratory: No Rales, Rhonchi (diffuse rhonchi), Wheezing (diffuse wheezing) Gastrointestinal/Abdominal: Normal Exam, Soft, No Tenderness, No Guarding, No Rebound Neurological/Psych: Oriented x3, Normal Speech ED Course And Treatment - Laboratory Results Result Diagrams: 03/08/18 17:48 03/08/18 17:48 ECG: Interpreted By Me, Viewed By Me ECG Rhythm: Sinus Rhythm Interpretation Of ECG: NSR with no ST/ T wave changes Rate From EC O2 Sat by Pulse Oximetry: 91 (RA) Pulse Ox Interpretation: Abnormal - Other Rad CXR X-Ray: Viewed By Me, Read By Radiologist Interpretation: ISTORY: SOB. COMPARISON: Chest x-ray performed 08/26/17. TECHNIQUE: Chest PA and lateral. FINDINGS: LUNGS: Hyperinflation may be seen in the setting of COPD. Increased lucencies especially within the bilateral upper lung swan compatible with underlying emphysema. Biapical pleural thickening. No focal consolidation. Please note that chest x-ray has limited sensitivity for the detection of pulmonary masses. PLEURA: No significant pleural effusion identified. No definite pneumothorax . CARDIOVASCULAR: The cardiomediastinal silhouette appears within normal limits of size. Mild atherosclerotic calcification present. OSSEOUS STRUCTURES: Mild degenerative changes. VISUALIZED UPPER ABDOMEN: Unremarkable. OTHER FINDINGS: None. IMPRESSION: Appearance consistent with COPD/emphysema. Correlate clinically. Medical Decision Making Medical Decision Making: seen in er [facility], s/p steirocody, later eloped. Plan: --Labs --CXR --UA --Albuterol nebs setirods, reassese. pt recieved streirod on previous chart, prior to elopment. persistent wheezing. labs cxr neg. accpeted natalia barrett. Disposition - Disposition Disposition: HOSPITALIZED Disposition Time: 20:22 Condition: STABLE - Clinical Impression Clinical Impression: Alcohol abuse, Chronic obstructive lung disease - Scribe Statement The provider has reviewed the documentation as recorded by the Scribe Chase Becker Provider Attestation: All medical record entries made by the Scribe were at my direction and persona lly dictated by me. I have reviewed the chart and agree that the record accurately reflects my personal performance of the history, physical exam, medical decision making, and the department course for this patient. I have also personally directed, reviewed, and agree with the discharge instructions and disposition. Decision To Admit - Pt Status Changed To: Hospital Disposition Of: Inpatient - Admit Certification Admit to Inpatient:: After my assessment, the patient will require hospitalization for at least two midnights. This is because of the severity of symptoms shown, intensity of services needed, and/or the medical risk in this patient being treated as an outpatient. - InPatient: Physician Admission Certification: I certify that this patient requires 2 or more midnights of care for the following reason:: persistent wheezing. - . Bed Request Type: Telemetry Admitting Physician: Artem Barrett Patient Diagnosis: Alcohol abuse, Chronic obstructive lung disease
[2018-03-08 17:52] LABS: BASO # 0.1 K/uL (0.0-0.2); BASO % 1.6 % (0.0-2.0); HEMOGLOBIN 15.3 g/dL (12.0-18.0); LYMPH # 0.8 K/uL (1.0-4.3); MEAN CELL VOLUME 100.6 fL (80.0-94.0); MEAN CORPUSCULAR HEMOGLOBIN 33.8 pg (27.0-31.0); MEAN CORPUSCULAR HGB CONC 33.6 g/dL (33.0-37.0); MONO # 0.3 K/uL (0.0-0.8); NEUT # 4.1 K/uL (1.8-7.0); NEUT % 78.4 % (50.0-75.0); NRBC % 0.1 % (0.0-2.0); RBC 4.52 Mil/uL (4.40-5.90); RED CELL DISTRIBUTION WIDTH 14.4 % (11.5-14.5); WHITE BLOOD COUNT 5.3 K/uL (4.8-10.8)
[2018-03-08 18:14] LABS: ALB/GLOB RATIO 1.2 (1.0-2.1); ALBUMIN 4.7 g/dL (3.5-5.0); ALT/SGPT 193 U/L (21-72); AST/SGOT 161 U/L (17-59); BLOOD UREA NITROGEN 12 mg/dL (9-20); GFR NON-AFRICAN AMERICAN > 60
--- NOTE | 2018-03-08 18:34 | RAD ---
HISTORY: SOB COMPARISON: Chest x-ray performed 08/26/17 TECHNIQUE: Chest PA and lateral FINDINGS: LUNGS: Hyperinflation may be seen in the setting of COPD. Increased lucencies especially within the bilateral upper lung swan compatible with underlying emphysema. Biapical pleural thickening. No focal consolidation. Please note that chest x-ray has limited sensitivity for the detection of pulmonary masses. PLEURA: No significant pleural effusion identified. No definite pneumothorax . CARDIOVASCULAR: The cardiomediastinal silhouette appears within normal limits of size. Mild atherosclerotic calcification present. OSSEOUS STRUCTURES: Mild degenerative changes. VISUALIZED UPPER ABDOMEN: Unremarkable. OTHER FINDINGS: None. IMPRESSION: Appearance consistent with COPD/emphysema. Correlate clinically.
--- NOTE | 2018-03-08 19:17 | CP.PCM.HP ---
Past Patient History - Infectious Disease Hx of Infectious Diseases: None - Past Medical History & Family History Past Medical History?: No - Past Social History Smoking Status: Heavy Smoker > 10 Cigarettes Daily - CARDIAC Hx Hypertension: No - PULMONARY Hx Asthma: Yes Hx Chronic Obstructive Pulmonary Disease (COPD): Yes - NEUROLOGICAL Hx Seizures: No - HEENT Hx HEENT Problems: No - RENAL Hx Chronic Kidney Disease: No - ENDOCRINE/METABOLIC Hx Endocrine Disorders: No - HEMATOLOGICAL/ONCOLOGICAL Hx Human Immunodeficiency Virus (HIV): No - INTEGUMENTARY Hx Dermatological Problems: No - MUSCULOSKELETAL/RHEUMATOLOGICAL Hx Musculoskeletal Disorders: No Hx Falls: No - GASTROINTESTINAL Hx Gastrointestinal Disorders: No - GENITOURINARY/GYNECOLOGICAL Hx Sexually Transmitted Disorders: No - PSYCHIATRIC Hx Anxiety: Yes Hx Substance Use: No - SURGICAL HISTORY Hx Surgeries: No Other/Comment: "skull cracked" - ANESTHESIA Hx Anesthesia: No Hx Anesthesia Reactions: No Hx Malignant Hyperthermia: No Meds Allergies/Adverse Reactions: Allergies Allergy/AdvReac Type Severity Reaction Status Date / Time No Known Allergies Allergy Verified 03/08/18 17:39 Results - Vital Signs Recent Vital Signs: Last Vital Signs Temp 98.6 F 03/08/18 17:36 Pulse 87 03/08/18 17:36 Resp 20 03/08/18 17:36 BP 145/86 03/08/18 17:36 Pulse Ox 91 L 03/08/18 18:54 - Labs Result Diagrams: 03/08/18 17:48 03/08/18 17:48 Labs: Laboratory Results - last 24 hr 03/08/18 03/08/18 03/08/18 17:48 17:48 17:48 WBC 5.3 RBC 4.52 Hgb 15.3 Hct 45.5 MCV 100.6 H MCH 33.8 H MCHC 33.6 RDW 14.4 Plt Count 225 MPV 10.0 Neut % (Auto) 78.4 H Lymph % (Auto) 15.0 L Banner % (Auto) 5.0 Eos % (Auto) 0.0 Baso % (Auto) 1.6 Neut # (Auto) 4.1 Lymph # (Auto) 0.8 L Banner # (Auto) 0.3 Eos # (Auto) 0.0 Baso # (Auto) 0.1 Differential Comment PT 11.0 INR 1.0 APTT 37 H Sodium 147 Potassium 4.4 Chloride 108 H Carbon Dioxide 25 Anion Gap 19 BUN 12 Creatinine 0.9 Est GFR ( Amer) > 60 Est GFR (Non-Af Amer) > 60 Random Glucose 125 H Calcium 9.0 Total Bilirubin 0.6 AST 161 H D ALT 193 H D Alkaline Phosphatase 87 Troponin I < 0.0120 Total Protein 8.5 H Albumin 4.7 Globulin 3.8 Albumin/Globulin Ratio 1.2
[2018-03-08 19:24] LABS: SQUAMOUS EPITHIAL < 1 /hpf (0-5); URINE BACTERIA RARE (<OCC); URINE BILIRUBIN NEGATIVE (NEGATIVE); URINE BLOOD 1+ (NEGATIVE); URINE CLARITY Clear (Clear); URINE COLOR Yellow (YELLOW); URINE GLUCOSE (UA) NORMAL (Normal); URINE LEUKOCYTE ESTERASE NEG Leu/uL (Negative); URINE PROTEIN 2+ mg/dL (NEGATIVE); URINE UROBILINOGEN NORMAL mg/dL (0.2-1.0)
[2018-03-08] MEDS ORDERED: Azithromycin 500 MG in Sodium Chloride 0.9% 250 ML IVPB STA (21:06)
[2018-03-08] MEDS ORDERED: cefTRIAXone IV 1 gm in Dextros 50 ML IVPB ONE (21:15)
[2018-03-08] MEDS: MethylPREDNISolone 40 mg Vial IVP SCH (21:38)
[2018-03-08] MEDS ORDERED: Folic Acid 1 MG, Thiamine 100 MG, Multivitamin (MVI) 10 ML in Dextrose 5% In Water 1,00... IV SCH (21:45)
[2018-03-09] MEDS: Albuterol-Ipratrop 3 mg / 0.5 (3 ml) UD INH SCH ×3 (01:25→13:13)
[2018-03-09] MEDS: MethylPREDNISolone 40 mg Vial IVP SCH (05:40)
[2018-03-09] MEDS ORDERED: Albuterol-Ipratrop 3 mg / 0.5 (3 ml) UD INH STA (07:58)
[2018-03-09 08:55] VITALS: BP 145/82; PULSE 86; TEMP 98; O2SAT 98
--- NOTE | 2018-03-09 09:12 | PCM.RRT ---
<Gregory Campos - Last Filed: 03/09/18 13:38> WASTEWATER SUPERVISOR Nurses Assessment - Situation Date: 03/09/18 Time WASTEWATER SUPERVISOR was called: 07:53 WASTEWATER SUPERVISOR Responder Arrival Time:: 07:54 WASTEWATER SUPERVISOR Location:: Med/Surg Room Number: 559 B WASTEWATER SUPERVISOR Reason for Call: O2 Saturation below 90% WASTEWATER SUPERVISOR Called By: RN - IV IV Inserted during WASTEWATER SUPERVISOR?: No - Respiratory WASTEWATER SUPERVISOR Delivery Method: Non Rebreather @% Received Nebulizer Treatments: Yes Was the Patient Ventilated with Bag/Mask 100% O2?: No Secretions Suctioned?: No Was the Patient Intubated?: No Was the Patient Placed on a Ventilator?: No - Medication Medications Administered During WASTEWATER SUPERVISOR: ATIVAN 2 MG IVP. SOLUMEDROL IVP - Diagnostic Test Ordered EKG: No Chest X-Ray: Yes CT Scan: No CPR started during WASTEWATER SUPERVISOR?: No - Vital Signs Vital Signs: Rapid Response Vital Sign Blood Pressure 140/79 Pulse Rate 89 Respiratory Rate 22 Temperature 98 F Oxygen Saturation 85 - Time WASTEWATER SUPERVISOR Ended Time WASTEWATER SUPERVISOR Ended: 08:08 - Vital Signs at end of WASTEWATER SUPERVISOR Vital Signs at end of WASTEWATER SUPERVISOR: Rapid Response End Vital Sign Blood Pressure 145/82 Pulse Rate 83 Respiratory Rate 20 Temperature 98.1 F O2 Sat by Pulse Oximetry 97 - Respiratory Oxygen Delivery Method: Non Rebreather @% - Constitutional Appears: No Acute Distress - Head Head Exam: ATRAUMATIC, NORMOCEPHALIC - Eyes Eye Exam: EOMI, Normal appearance - Respiratory Exam Respiratory Exam: Clear to Ausculation Bilateral - Cardiovascular Exam Cardiovascular Exam: REGULAR RHYTHM, +S1, +S2 - GI/Abdominal Exam GI & Abdominal Exam: Soft, Normal Bowel Sounds. absent: Tenderness - Neurological Exam Neurological Exam: Alert, Awake, Oriented x3 - Extremities Exam Extremities Exam: Normal Inspection Plan - Assessment of Findings&Treatment Plan Vitals on arrival: T: 98.0, BP: 140/79, HR: 95, O2: 84% on 2L NC Rapid was called for O2 saturation of 84%. On arrival, patient was sitting on his bed on a re-breather mask. Patient was complaining of shortness of breath but was not in acute distress. Ativan 2mg IV was given, continue with non-rebreather mask at 15L, and Solumedrol 12omg IV given. Patient states that he is feeling much better and admits to improvements in his breathing. Patient's PMD Dr. Huerta was contacted and notified. He would like Dr. Oviedo to be consulted. Repeat Vitals: T: 98.3, BP: 138/77, HR: 95, O2: 95% on non-rebreather mask <Yasmany Lerma - Last Filed: 03/09/18 14:38> WASTEWATER SUPERVISOR Nurses Assessment - Vital Signs Vital Signs: Rapid Response Vital Sign Blood Pressure 140/79 Pulse Rate 89 Respiratory Rate 22 Temperature 98 F Oxygen Saturation 85 - Vital Signs at end of WASTEWATER SUPERVISOR Vital Signs at end of WASTEWATER SUPERVISOR: Rapid Response End Vital Sign Blood Pressure 145/82 Pulse Rate 83 Respiratory Rate 20 Temperature 98.1 F O2 Sat by Pulse Oximetry 97 Attending/Attestation - Attestation I have personally seen and examined this patient.: Yes I have fully participated in the care of the patient.: Yes I have reviewed all pertinent clinical information, including history, physical exam and plan: Yes Notes (Text): 03/09/18 14:31 Hospitalist Note: Patient was having shaking and tremors. WASTEWATER SUPERVISOR was called. He was noted to be short of breath. The patient was awake and alert - he was short of breath and also tremulous. The patient was asking for control of the tremors - the patient was given Ativan IV 2 mg. Also nebulizer treatment was given as well. The patient will need a psychiatry evaluation at some point to help with the detox
[2018-03-09] MEDS ORDERED: Enoxaparin 40 mg Syringe SC SCH (10:00)
[2018-03-09] MEDS ORDERED: Azithromycin 500 MG in Sodium Chloride 0.9% 250 ML IVPB SCH (10:00)
[2018-03-09] MEDS ORDERED: cefTRIAXone 1 gm in cefTRIAXone IV 1 gm in Dextros 50 ML IVPB SCH (10:00)
[2018-03-09] MEDS ORDERED: Pantoprazole 40 mg EC Tab PO SCH (10:00)
[2018-03-09] MEDS ORDERED: Folic Acid 1 MG, Thiamine 100 MG, Multivitamin (MVI) 10 ML in Dextrose 5% In Water 1,00... IV ONE (10:00)
[2018-03-11] MEDS ORDERED: Influenza Vaccine 60 MCG/0.5 ML SYR (3 yr & up) IM ONE (10:00)
== END 2018-03-09 13:35 | disposition left against medical advice (07) | DRG 140 ==
LOC: C.ER 17:31 → C.9E 18:26 → C.5S 20:17
PROVIDERS: ADMIT Internal Medicine Nephrology; ATTEND Internal Medicine Nephrology
DX: J44.9 Chronic obstructive pulmonary disease, unspecified (principal); F10.10 Alcohol abuse, uncomplicated; F17.210 Nicotine dependence, cigarettes, uncomplicated

== ENCOUNTER 2018-03-21 08:32 | Emergency (ER) | payer OTHER ==
[2018-03-21 08:33] VITALS: BMI 19.5
--- NOTE | 2018-03-21 09:18 | C.PDOC ---
History Of Present Illness 52 year old male presents to ED for evaluation of dizziness that developed prior to arrival. Notes dizziness is worse with change in position and has now resolved. Denies injury, syncope, headache, weakness, or change in sensation. Notes he recently had URI. He also complains of alcohol withdrawal. Notes he is slowly self detoxing with limited improvement. He is s/p inpatient detox at [facility]. He complains of tremors. Notes he recently spoke with Stacey from detox unit, but states he cannot be admitted today due to personal obligations. Otherwise, denies chest pain, palpitations, shortness of breath, abdominal pain, n/v/d, fever, chills, or any other associated symptoms at this time. Time Seen by Provider: 03/21/18 08:59 Chief Complaint (Nursing): Substance Abuse History Per: Patient History/Exam Limitations: no limitations Recent travel outside of the [place]: No Additional History Per: Patient Past Medical History Reviewed: Historical Data, Nursing Documentation, Vital Signs Vital Signs: Last Vital Signs Temp 98.4 F 03/21/18 08:51 Pulse 72 03/21/18 08:51 Resp 24 03/21/18 08:51 BP 169/91 H 03/21/18 08:51 Pulse Ox 93 L 03/21/18 08:51 - Medical History PMH: Anxiety, Asthma, COPD Denies: HIV, HTN, Chronic Kidney Disease, Seizures, Sexually Transmitted Disease Family History: States: Unknown Family Hx - Social History Hx Tobacco Use: Yes Hx Alcohol Use: Yes Hx Substance Use: No - Immunization History Hx Tetanus Toxoid Vaccination: No Hx Influenza Vaccination: Yes Hx Pneumococcal Vaccination: No Review Of Systems Except As Marked, All Systems Reviewed And Found Negative. Constitutional: Negative for: Fever, Chills Cardiovascular: Negative for: Chest Pain, Palpitations Respiratory: Negative for: Cough, Shortness of Breath Gastrointestinal: Negative for: Nausea, Vomiting, Abdominal Pain Neurological: Negative for: Weakness, Numbness, Headache, Dizziness Psych: Positive for: Withdrawal Physical Exam - Physical Exam Appears: Non-toxic, No Acute Distress Skin: Warm, Dry, No Rash Head: Atraumatic, Normacephalic Eye(s): bilateral: Normal Inspection Oral Mucosa: Moist Neck: Normal ROM, Supple Cardiovascular: Rhythm Regular, No Murmur Respiratory: Normal Breath Sounds, No Rales, No Rhonchi, No Wheezing Gastrointestinal/Abdominal: Soft, No Tenderness Extremity: Other (some tremors, no fasciculation) Extremity: Bilateral: Atraumatic Neurological/Psych: Oriented x3, Normal Speech, Other (neuro intact, no reproducible vertigo) Gait: Steady ED Course And Treatment O2 Sat by Pulse Oximetry: 93 Medical Decision Making Medical Decision Making: Plan: * Meclizine * Librium Disposition Counseled Patient/Family Regarding: Diagnosis, Need For Followup, Rx Given - Disposition Referrals: [facility] [Outside] [facility] [Outside] Disposition: HOME/ ROUTINE Disposition Time: 09:19 Condition: IMPROVED Prescriptions: Meclizine [Antivert] 50 mg PO TID PRN #21 tab PRN Reason: Dizziness Instructions: Vertigo (a Type of Dizziness) (DC), Alcohol Withdrawal (DC) Forms: Patient Engagement Systems ([employer]) - Clinical Impression Clinical Impression: Alcohol withdrawal, Vertigo - Scribe Statement The provider has reviewed the documentation as recorded by the Scribe KP All medical record entries made by the Scribe were at my direction and personally dictated by me. I have reviewed the chart and agree that the record accurately reflects my personal performance of the history, physical exam, medical decision making, and the department course for this patient. I have also personally directed, reviewed, and agree with the discharge instructions and disposition.
[2018-03-21 10:37] VITALS: BP 159/88; PULSE 86; RESP 20; TEMP 98.3
[2018-03-23 07:25] VITALS: O2SAT 93
== END 2018-03-21 10:15 | disposition home or self-care (01) ==
LOC: C.ER 08:32
DX: F10.239 Alcohol dependence with withdrawal, unspecified (principal); R42 Dizziness and giddiness; Z72.0 Tobacco use

== ENCOUNTER 2018-04-05 12:28 | Inpatient (IN) | payer OTHER ==
[2018-04-05 12:33] VITALS: BMI 19.2
--- NOTE | 2018-04-05 13:57 | C.PDOC ---
History Of Present Illness 52 yo male w/PMhx of ETOH abuse comes in request detox. Pt reports, last drink was this AM. Pt denies any active physical complaints at present time.Pt is awake, alert, appears intoxicated. Ambulatory in ED. Time Seen by Provider: 04/05/18 13:56 Chief Complaint (Nursing): Substance Abuse History Per: Patient Past Medical History Reviewed: Historical Data, Nursing Documentation, Vital Signs Vital Signs: Last Vital Signs Temp 97.6 F 04/05/18 12:33 Pulse 81 04/05/18 12:33 Resp 18 04/05/18 12:33 BP 108/61 04/05/18 12:33 Pulse Ox 92 L 04/05/18 12:33 - Medical History PMH: Anxiety, Asthma, COPD, HTN Denies: HIV, Chronic Kidney Disease, Seizures, Sexually Transmitted Disease Family History: States: Unknown Family Hx - Social History Hx Tobacco Use: Yes Hx Alcohol Use: Yes Hx Substance Use: No - Immunization History Hx Tetanus Toxoid Vaccination: No Hx Influenza Vaccination: Yes Hx Pneumococcal Vaccination: Yes Review Of Systems Except As Marked, All Systems Reviewed And Found Negative. Constitutional: Negative for: Fever, Chills ENT: Negative for: Throat Pain Cardiovascular: Negative for: Chest Pain, Palpitations Respiratory: Negative for: Cough, Shortness of Breath Gastrointestinal: Negative for: Nausea, Vomiting, Abdominal Pain, Diarrhea Genitourinary: Negative for: Dysuria Skin: Negative for: Rash Neurological: Negative for: Weakness, Numbness, Altered Mental Status Physical Exam - Physical Exam Appears: Well, Non-toxic, No Acute Distress Skin: Normal Color, Warm, Dry, No Ecchymosis Head: Atraumatic, Normacephalic Eye(s): bilateral: PERRL Nose: No Flaring, No Discharge Oral Mucosa: Moist, No Drooling Tongue: Normal Appearing Lips: Normal Appearing Throat: No Drooling Neck: Trachea Midline, No Midline Cervical Tenderness, No Paracervical Tenderness, No Step Off Deformity, Supple Cardiovascular: Rhythm Regular, No Murmur, No JVD Respiratory: No Decreased Breath Sounds, No Accessory Muscle Use, No Stridor, No Wheezing Gastrointestinal/Abdominal: Soft, No Tenderness, No Distention, No Guarding Extremity: Normal ROM, No Deformity, No Swelling Neurological/Psych: Oriented x3 ED Course And Treatment - Laboratory Results Result Diagrams: 04/05/18 14:06 04/05/18 14:06 Lab Interpretation: No Acute Changes O2 Sat by Pulse Oximetry: 92 Pulse Ox Interpretation: Abnormal Progress Note: Pt was OBS in ED for 3 hours and remained stable. Awake, ambulatory in Ed with stable gait. neuorlogicaly intact. Blood work review and appears baseline, no acute abnormalities. Pt is medically cleared for PES evaluation. Pt was seen and evaluated by PES, case discussed with psych . Admisison to detox accepted. Disposition - Disposition Disposition: HOSPITALIZED Disposition Time: 17:54 Condition: STABLE Forms: [employer] (Bulgarian) - Clinical Impression Clinical Impression: Alcohol dependence
[2018-04-05 14:14] LABS: BASO # 0.1 K/uL (0.0-0.2); BASO % 1.3 % (0.0-2.0); EOS # 0.1 K/uL (0.0-0.7); EOS % 2.7 % (0.0-4.0); HEMOGLOBIN 15.3 g/dL (12.0-18.0); LYMPH # 2.4 K/uL (1.0-4.3); LYMPH % 50.6 % (20.0-40.0); MEAN CELL VOLUME 103.5 fL (80.0-94.0); MEAN CORPUSCULAR HEMOGLOBIN 35.3 pg (27.0-31.0); MEAN CORPUSCULAR HGB CONC 34.1 g/dL (33.0-37.0); MEAN PLATELET VOLUME 9.6 fL (7.2-11.7); MONO # 0.6 K/uL (0.0-0.8); MONO % 12.7 % (0.0-10.0); NEUT # 1.5 K/uL (1.8-7.0); NEUT % 32.7 % (50.0-75.0); NRBC % 0.1 % (0.0-2.0); RBC 4.32 Mil/uL (4.40-5.90); RED CELL DISTRIBUTION WIDTH 14.2 % (11.5-14.5); WHITE BLOOD COUNT 4.7 K/uL (4.8-10.8)
[2018-04-05 14:29] LABS: URINE BILIRUBIN NEGATIVE (NEGATIVE); URINE BLOOD NEGATIVE (NEGATIVE); URINE CLARITY Clear (Clear); URINE COLOR Straw (YELLOW); URINE GLUCOSE (UA) NORMAL (Normal); URINE LEUKOCYTE ESTERASE NEG Leu/uL (Negative); URINE PROTEIN NEGATIVE (NEGATIVE); URINE UROBILINOGEN NORMAL mg/dL (0.2-1.0)
[2018-04-05 14:33] LABS: ALB/GLOB RATIO 1.3 (1.0-2.1); ALBUMIN 4.3 g/dL (3.5-5.0); ALT/SGPT 158 U/L (21-72); AST/SGOT 158 U/L (17-59); BLOOD UREA NITROGEN 8 mg/dL (9-20); CALCIUM 8.7 mg/dl (8.6-10.4); GFR NON-AFRICAN AMERICAN > 60
[2018-04-05 14:41] LABS: BARBITURATES, UR NEGATIVE (NEGATIVE); BENZODIAZEPINES, UR NEGATIVE (NEGATIVE); OPIATES, UR NEGATIVE (NEGATIVE); PHENCYCLIDINE, UR NEGATIVE (NEGATIVE)
--- NOTE | 2018-04-05 18:26 | PCM.BM ---
<Philipp Clark - Last Filed: 04/05/18 18:25> Treatment Plan Problems - Problems identified on initial assessmt potential for alcohol withdrawal Date Initiated: 04/05/18 Time Initiated: 18:25 Status: Active Treatment assets and liabiliti Patient Assests: negotiates basic needs Patient Liabilities: substance abuse, medical problems - Milieu Protocol Maintain good personal hygiene: daily Encourage regular showers, daily Remind patient to perform daily oral care, daily Assist patient to perform ADL's Conduct patient checks and document Observation sheet: Q15 minutes Maintain personal safety: every shift Educate patient to report safety concerns to staff, every shift Monitor environment for contraband/sharps Medication safety: Monitor for expected outcome, potential side effects: every shift, Assess barriers to learning: every shift, Assess readiness for medication education: every shift <Stacey Glass - Last Filed: 04/07/18 11:02> Family Contact Family involvement: Family/SO is involved Family contact name: girlfriend and sister Family contacted how many times per week?: 3 - Goals for Treatment Patient goals for treatment: Complete detox and transition to outpatient counseling program. Discharge/Continuing Care - Education Needs Education Needs: Family Diagnosis/Disease Process, Family Community resources, Patient Medication, Patient Diagnosis/Disease Process, Patient Coping Skills, Patient Anger Management skills, Patient Placement options, Patient Community resources, Significant Other Diagnosis/Disease Process, Significant Other Community resources - Discharge Discharge Criteria: No longer exhibiting s/s of withdrawal, Reduction of target symptoms Discharge to:: Home - Treatment Team Participation Patient/Family/SO Statement: 04/07/18 11:02 "I can't go inpatient...I got nobody to take care of my dog..." Discussed with Family/SO: No Was Patient/Family/SO present at Treatment Team Meeting: Yes
[2018-04-06] MEDS: Multiple Vitamins Tab PO SCH (09:26)
[2018-04-06] MEDS: Albuterol HFA 90 mcg/actuation (8 g) INH PRN ×2 (09:47→21:27)
--- NOTE | 2018-04-06 13:19 | PCM.PSYCH ---
Initial Psychiatric Evaluation - Initial Psychiatric Evaluation Type of Admission: Voluntary Legal Status: Capacity Chief Complaint (in patient's own words): "I was shaking beyond control because Im an alcoholic" History of Present Illness and Precipitating Events: Patient seen, chart reviewed, case discussed HPI: Patient is a 52-year-old unemployed, male with 4 children ages 18, 26, 34, 38, who lives alone and is in a relationship with a female. 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 The patient had his first drink in his teens but it has been a problem for him for about 20 years. The patient drinks 1 pint of Bacardi per day and one beer per day, with his last drink the night before yesterday at 10 pm. The patient states that his longest sobriety was a couple months ago and lasted for 8 days. The patient denies any history of heroin, cocaine, marijuana, or other drug use but smokes a pack per day for the past 25 years. The patient has been to detox once which was one month ago, and has never been to rehab or attended AA meetings. The patient states that he has never been treated with anti-alcohol medications before and states that when he doesnt drink he gets bad shakes and pins and needles feelings in his fingers. The patient denies any family history of alcohol or drug use and denies any suicidal ideations. Past Psych History: denies Past Medical History: Asthma Family Psych History: denies Current Medications: Active Medications Generic Name Dose Route Start Last Admin Trade Name Freq PRN Reason Stop Dose Admin Albuterol 1 puff 04/05/18 20:43 04/06/18 09:47 Ventolin Hfa 90 Mcg/Actuation (8 G) INH 1 puff RQ6 PRN Administration Shortness of Breath Clonidine HCl 0.1 mg 04/05/18 20:44 04/05/18 21:07 Catapres PO 0.1 mg Q6 PRN Administration alcohol withdrawal Dicyclomine HCl 10 mg 04/06/18 01:04 Bentyl PO Q6 PRN Muscle spasm Folic Acid 1 mg 04/06/18 10:00 04/06/18 09:27 Folic Acid PO 1 mg DAILY SAVANNAH Administration Hydroxyzine HCl 50 mg 04/06/18 00:12 04/06/18 01:06 Atarax PO 50 mg Q6H PRN Administration Anxiety Ibuprofen 600 mg 04/06/18 00:12 Motrin Tab PO Q6H PRN Pain, moderate (4-7) Lorazepam 1 mg 04/05/18 20:42 04/06/18 03:08 Ativan PO 1 mg Q6 PRN Administration alcohol withdrawal Lorazepam 1 mg 04/06/18 00:15 04/06/18 12:07 Ativan PO 04/11/18 00:14 1 mg Q4H SAVANNAH Administration Taper Multivitamins 1 tab 04/06/18 10:00 04/06/18 09:26 Hexavitamin PO 1 tab DAILY SAVANNAH Administration Nicotine 1 patch 04/06/18 11:00 04/06/18 11:08 Nicoderm Cq TD 1 patch DAILY SAVANNAH Administration Thiamine HCl 100 mg 04/06/18 10:00 04/06/18 09:26 Vitamin B1 Tab PO 100 mg DAILY SAVANNAH Administration Trazodone HCl 100 mg 04/06/18 10:20 Desyrel PO HS PRN Insomnia Past Psychiatric History - Past Psychiatric History Previous Treatment History: None Pertinent Medical Hx (Current Medical&Sleep Prob, Allergies): Allergies Allergy/AdvReac Type Severity Reaction Status Date / Time No Known Allergies Allergy Verified 04/05/18 12:32 No Known Home Med 04/05/18 Review of Systems - Psychiatric Psychiatric: Difficulty Concentrating. absent: Abnormal Sleep Pattern, Anxiety, Depression, Hallucinations, Homicidal Ideation, Paranoia, Suicidal Ideation Mental Status Examination - Personal Presentation Personal Presentation: Looks older than stated age - Affect Affect: Constricted - Motor Activity Motor Activity: Calm - Reliability in Providing Information Reliability in Providing Information: Good - Speech Speech: Organized, Relevant, Coherent - Mood Mood: Neutral - Formal Thought Process Formal Thought Process: No Impairment - Obsessions/Compulsions Obsessions: No Compulsions: No - Cognitive Functions Orientation: Person, Place, Situation, Time Sensorium: Alert Attention/Concentration: Attentive Abstract Thinking: [place] Judgement: Intact, as evidence by: Good judgement Memory: Recent intact, as evidence by: Ability to recall events of the day, Remote intact, as evidenced by: Abilit to recall sig. life events - Risk Risk: Withdrawal, Diminished functioning - Strength & Assets Inventory Strength & Assets Inventory: Cooperative - Limitations Limitations: Living alone DSM 5 DX - DSM 5 DSM 5 Diagnosis: Alcohol withdrawal Alcohol use d/o--severe - Recommended/Plan of Treatment Treatment Recommendations and Plan of Treatment: Taper with Ativan Gabapentin for augmentation if needed As needed medication All risks, benefits and alternatives of the meds discussed and the patient agreed and understood Attend groups and activities Supportive therapy and psychoeducation [place] for abstinence CBT for relapse prevention Encourage MAT Refer to rehab or IOP, and self-help groups Teach healthy lifestyle methods, i.e. diet, exercise, meditation Smoking cessation with [place] Nicotine patch if needed 33 min Projected ELOS: 4 days - Smoking Cessation Smoking Cessation Initiated: Yes
[2018-04-07] MEDS: Multiple Vitamins Tab PO SCH (09:48)
--- NOTE | 2018-04-07 13:28 | PCM.PYCHPN ---
Psychiatric Progress Note - Psychiatric Progress Note Patient Chief Complaint: "I was shaking beyond control because Im an alcoholic" Medication Change: Yes Medical Record Reviewed: Yes Mental Status Examination - Cognitive Function Orientation: Person, Place, Situation, Time - Mood Mood: Neutral - Affect Affect: Constricted - Formal Thought Process Formal Thought Process: No Impairment - Homicidal Ideation Homicidal Ideation: No Goal/Treatment Plan - Goal/Treatment Plan Progress Toward Problem(s) and Goals/Treatment Plan: Taper with Ativan Gabapentin for augmentation if needed As needed medication All risks, benefits and alternatives of the meds discussed and the patient agreed and understood Attend groups and activities Supportive therapy and psychoeducation [place] for abstinence CBT for relapse prevention Encourage MAT Refer to rehab or IOP, and self-help groups Teach healthy lifestyle methods, i.e. diet, exercise, meditation Smoking cessation with [place] Nicotine patch if needed 33 min
[2018-04-08 05:55] VITALS: O2SAT 96
--- NOTE | 2018-04-08 08:49 | PCM.PYCHDC ---
Mental Status Examination - Mental Status Examination Orientation: Person, Place, Situation, Time Memory: Intact Mood: Anxious Affect: Constricted Speech: Appropriate Attention: WNL Concentration: WNL Association: WNL Fund of Knowledge: WNL Formal Thought Process: No Impairment Suicidal Ideation: No Current Homicidal Ideation?: No Discharge Summary - Discharge Note Consultations:: List each consultation separately and include: 1. Reason for request. 2. Findings. 3. Follow-up Summary of Hospital Course include:: 1. Description of specific treatment plan utilized for patients during their course of treatmen. 2. Summarize the time- course for resolution of acute symptoms and/or regressed behaviors. 3. Describe issues identified and worked on during hospitalization. 4. Describe medication utilized. 5. Describe medical problems identified and treated. 6. Reassessment of suicide risk Summary of Hospital Course: Patient seen, chart reviewed, case discussed HPI: Patient is a 52-year-old unemployed, male with 4 children ages 18, 26, 34, 38, who lives alone and is in a relationship with a female. 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 The patient had his first drink in his teens but it has been a problem for him for about 20 years. The patient drinks 1 pint of Bacardi per day and one beer per day, with his last drink the night before yesterday at 10 pm. The patient states that his longest sobriety was a couple months ago and lasted for 8 days. The patient denies any history of heroin, cocaine, marijuana, or other drug use but smokes a pack per day for the past 25 years. The patient has been to detox once which was one month ago, and has never been to rehab or attended AA meetings. The patient states that he has never been treated with anti-alcohol medications before and states that when he doesnt drink he gets bad shakes and pins and needles feelings in his fingers. The patient denies any family history of alcohol or drug use and denies any suicidal ideations. Past Psych History: denies Past Medical History: Asthma Family Psych History: denies Hospital course: The pt was admitted and started on treatment with psychotherapy, support, psychoeducation and medications. OR and CBT used. The pt attended groups and activities, as well as milieu therapy. All the risks and benefits of medications are discussed and the patient understood and agreed. The pt improved with the treatments provided. After care discussed with the patient. He will go to [facility] and AA. - Final Diagnosis (DSM 5) Condition upon Discharge: STABLE DSM 5: Alcohol withdrawal Alcohol use d/o--severe Disposition: HOME/ ROUTINE Follow-up Treatment Plan: Continue below medications after discharge. Follow after care plan as discussed. Use relapse prevention skills Return to ER or call 911 if suicidal, homicidal or symptoms relapse. Stay away from stress, alcohol and drugs. See primary doctor regularly and get labs. Prescriptions/Medication Reconciliation: Albuterol HFA [Ventolin HFA 90 mcg/actuation (8 g)] 1 puff INH RQ6 PRN #1 inhaler PRN Reason: Shortness Of Breath hydrOXYzine HCl [Atarax] 50 mg PO BID PRN #30 tab PRN Reason: Anxiety traZODone [Desyrel] 100 mg PO HS PRN #30 tab PRN Reason: Insomnia
[2018-04-08] MEDS: Multiple Vitamins Tab PO SCH (09:23)
[2018-04-08 10:13] VITALS: BP 102/69; PULSE 83; RESP 18; TEMP 99.5
== END 2018-04-08 10:00 | disposition home or self-care (01) | DRG 750 ==
LOC: C.ER 12:28 → C.7D 17:52
PROVIDERS: ADMIT Psychiatry & Neurology Psychiatry; ATTEND Psychiatry & Neurology Psychiatry
PROC: HZ2ZZZZ Detoxification Services for Substance Abuse Treatment (ICD-10-PCS; principal; 2018-04-05)
PROC: HZ59ZZZ Individual Psychotherapy for Substance Abuse Treatment, Supportive (ICD-10-PCS; 2018-04-05)
PROC: HZ46ZZZ Group Counseling for Substance Abuse Treatment, Psychoeducation (ICD-10-PCS; 2018-04-05)
PROC: HZ80ZZZ Medication Management for Substance Abuse Treatment, Nicotine Replacement (ICD-10-PCS; 2018-04-05)
DX: F10.230 Alcohol dependence with withdrawal, uncomplicated (principal); J44.9 Chronic obstructive pulmonary disease, unspecified; I10 Essential (primary) hypertension; F17.210 Nicotine dependence, cigarettes, uncomplicated; Y90.8 Blood alcohol level of 240 mg/100 ml or more

== ENCOUNTER 2018-06-16 20:11 | Emergency (ER) | payer OTHER ==
[2018-06-16 20:11] VITALS: BMI 19.2
[2018-06-16] MEDS ORDERED: Albuterol-Ipratrop 3 mg / 0.5 (3 ml) UD ONE ×2 (20:20→20:55)
--- NOTE | 2018-06-16 20:36 | C.PDOC ---
History Of Present Illness 53 year old male presents with 4 days of worsening cough and SOB. Patient still smokes a pack a day. Currently speaking in 4-5 word sentences. Denies fever, chills, nausea, or vomiting. Time Seen by Provider: 06/16/18 20:35 Chief Complaint (Nursing): Shortness Of Breath History Per: Patient History/Exam Limitations: no limitations Onset/Duration Of Symptoms: Days (4) Current Symptoms Are (Timing): Still Present Associated Symptoms: Dyspnea, Cough. denies: Other (Fever, chills, nausea, or vomiting.) Severity: Moderate Pain Scale Rating Of: 4 Recent travel outside of the [place]: No Additional History Per: Patient - Asthma History Medication Use: PRN Rescue Medications: See Home Medication List Control Medications: See Home Medication List Past Medical History Reviewed: Historical Data, Nursing Documentation, Vital Signs Vital Signs: Last Vital Signs Temp 98.3 F 06/16/18 20:18 Pulse 79 06/16/18 20:18 Resp 26 H 06/16/18 20:30 BP 138/86 06/16/18 20:18 Pulse Ox 91 L 06/16/18 20:18 - Medical History PMH: Anxiety, Asthma, COPD, HTN Denies: Diabetes, Hepatitis, HIV, Chronic Kidney Disease, Seizures, Sexually Transmitted Disease - [facility] Procedures DETOXIFICATION SERVICES FOR SUBSTANCE ABUSE TREATMENT (04/05/18) GROUP ELECTRIC HOIST OPERATOR FOR SUBSTANCE ABUSE TREATMENT, PSYCHOEDUCATION (04/05/18) INDIV PSYCHOTHERAPY FOR SUBSTANCE ABUSE TREATMENT, SUPPORT (04/05/18) MEDS MGMT FOR SUBSTANCE ABUSE TREATMENT, NICOTINE REPLACE (04/05/18) Family History: States: No Known Family Hx - Social History Hx Tobacco Use: Yes Hx Alcohol Use: Yes Hx Substance Use: No - Immunization History Hx Tetanus Toxoid Vaccination: No Hx Influenza Vaccination: Yes Hx Pneumococcal Vaccination: Yes Review Of Systems Constitutional: Negative for: Fever, Chills Cardiovascular: Negative for: Chest Pain, Palpitations Respiratory: Positive for: Cough, Shortness of Breath Gastrointestinal: Negative for: Nausea, Vomiting Musculoskeletal: Negative for: Back Pain Neurological: Negative for: Weakness, Numbness Psych: Negative for: Anxiety Physical Exam - Physical Exam Appears: Non-toxic Skin: Warm, Dry Head: Normacephalic Oral Mucosa: Moist Throat: No Erythema, No Other (Swelling) Neck: Trachea Midline, Supple Chest: Symmetrical, No Tenderness Cardiovascular: Rhythm Regular Respiratory: No Rales, No Rhonchi, Wheezing (Scattered) Gastrointestinal/Abdominal: Soft, No Tenderness Back: Normal Inspection Extremity: Normal ROM Extremity: Bilateral: Atraumatic Neurological/Psych: Oriented x3 Gait: Steady ED Course And Treatment - Laboratory Results Result Diagrams: 06/16/18 20:49 06/16/18 20:49 ECG: Interpreted By Me, Viewed By Me ECG Rhythm: Sinus Rhythm (74), Nonspecific Changes O2 Sat by Pulse Oximetry: 91 Pulse Ox Interpretation: Abnormal - Radiology CXR: Interpreted by Me, Viewed By Me Progress Note: Blood work, EKG, CXR, urinalysis, and flu swab ordered. IV fluids, albuterol, and solumedrol administered. 10:05 PM less wheezing . feels better Reevaluation Time: 22:51 Reassessment Condition: Improved Critical Care Time - Critical Care Note Total Time (in mins): 30 Documented critical care: time excludes all time spent performing seperately billable procedures. Medical Decision Making Medical Decision Making: Upon provider reevaluation patient is feeling better, is medically stable, and requires no further treatment in the ED at this time. Patient will be discharged home with Rx for z pack, prednisone, duoneb. Counseling was provided and all questions were answered regarding diagnosis and need for follow up with the referred clinic. There is agreement to discharge plan. Return if symptoms persist or worsen. Disposition Counseled Patient/Family Regarding: Studies Performed, Diagnosis, Need For Followup, Rx Given, Smoking Cessation - Disposition Referrals: [facility] [Outside] [facility] [Outside] Disposition: HOME/ ROUTINE Disposition Time: 20:36 Condition: FAIR Additional Instructions: Please return if symptoms recur Prescriptions: Albuterol HFA [Ventolin HFA 90 mcg/actuation (8 g)] 2 puff IH [id number] #1 puff Albuterol/Ipratropium [Duoneb 3 MG/3 Ml-0.5 MG/3 Ml 3 Ml] 3 ml IH QID PRN #50 neb PRN Reason: Wheezing Azithromycin [Zithromax Tri-Dave] 500 mg PO DAILY #3 tablet Compressor, For Nebulizer [Artas Compressor-Nebulizer] 1 each MC DAILY #1 each Prednisone [Deltasone] 20 mg PO DAILY #5 tablet Instructions: Asthma, Adult (DC) Forms: [employer] (German) - Clinical Impression Clinical Impression: Asthma exacerbation - Scribe Statement The provider has reviewed the documentation as recorded by the Scribe Casey Arita All medical record entries made by the Scribe were at my direction and personally dictated by me. I have reviewed the chart and agree that the record accurately reflects my personal performance of the history, physical exam, medical decision making, and the department course for this patient. I have also personally directed, reviewed, and agree with the discharge instructions and disposition.
[2018-06-16] MEDS ORDERED: Sodium Chloride 0.9% 1,000 ML IV ONE (20:38)
[2018-06-16] MEDS: Albuterol-Ipratrop 3 mg / 0.5 (3 ml) UD IH SCH ×3 (20:40→21:05)
[2018-06-16] MEDS ORDERED: Sodium Chloride 0.9% 1,000 ML ONE (20:46)
[2018-06-16 20:59] LABS: BASO # 0.1 K/uL (0.0-0.2); BASO % 1.3 % (0.0-2.0); EOS # 0.9 K/uL (0.0-0.7); EOS % 13.5 % (0.0-4.0); LYMPH # 1.8 K/uL (1.0-4.3); LYMPH % 26.8 % (20.0-40.0); MEAN CORPUSCULAR HEMOGLOBIN 34.4 pg (27.0-31.0); MEAN CORPUSCULAR HGB CONC 33.7 g/dL (33.0-37.0); MONO % 14.2 % (0.0-10.0); NEUT % 44.2 % (50.0-75.0); NRBC % 0.1 % (0.0-2.0); RBC 4.36 Mil/uL (4.40-5.90); RED CELL DISTRIBUTION WIDTH 13.4 % (11.5-14.5); WHITE BLOOD COUNT 6.7 K/uL (4.8-10.8)
[2018-06-16 21:05] LABS: ABG ALLEN TEST POS; ARTERIAL BLOOD GAS HCO3 23.2 mmol/L (21-28); ARTERIAL BLOOD GAS O2 SAT 93.5 % (95-98); ARTERIAL BLOOD GAS PCO2 40 mm/Hg (35-45); ARTERIAL BLOOD GAS PH 7.37 (7.35-7.45); ARTERIAL BLOOD GAS PO2 60 mm/Hg (80-100); ARTERIAL BLOOD GAS TCO2 24.3 mmol/L (22-28)
[2018-06-16 21:13] LABS: ALB/GLOB RATIO 1.4 (1.0-2.1); ALBUMIN 4.5 g/dL (3.5-5.0); ALT/SGPT 158 U/L (21-72); AST/SGOT 143 U/L (17-59); BLOOD UREA NITROGEN 12 mg/dL (9-20); GFR NON-AFRICAN AMERICAN > 60
[2018-06-16 21:43] LABS: URINE BILIRUBIN NEGATIVE (NEGATIVE); URINE BLOOD NEGATIVE (NEGATIVE); URINE CLARITY Clear (Clear); URINE COLOR Yellow (YELLOW); URINE GLUCOSE (UA) NORMAL (Normal); URINE LEUKOCYTE ESTERASE NEG Leu/uL (Negative); URINE PROTEIN NEGATIVE (NEGATIVE)
[2018-06-16 23:05] VITALS: BP 131/66; PULSE 78; RESP 20; TEMP 98; O2SAT 98
--- NOTE | 2018-06-17 10:57 | RAD ---
Date of service: 06/16/2018 PROCEDURE: CHEST RADIOGRAPH, 1 VIEW HISTORY: SOB COMPARISON: 03/08/2018. FINDINGS: LUNGS: The lungs are hyperinflated and there is peribronchial thickening with chronic changes in both lungs. No focal consolidation. PLEURA: No pneumothorax or pleural effusion. CARDIOVASCULAR: The heart is normal in size. No aortic atherosclerotic calcifications present. OSSEOUS STRUCTURES: Within normal limits for the patient's age. VISUALIZED UPPER ABDOMEN: Normal. OTHER FINDINGS: None. IMPRESSION: No active pulmonary disease. COPD.
--- NOTE | 2018-06-17 18:09 | CARD ---
APPROVED REPORT Date of service: 06/16/2018 EKG Measurement Heart [id number] <Conclusion> Normal sinus rhythm Normal ECG
== END 2018-06-16 23:11 | disposition home or self-care (01) ==
LOC: C.ER 20:11
DX: J45.901 Unspecified asthma with (acute) exacerbation (principal); F17.200 Nicotine dependence, unspecified, uncomplicated
CPT/HCPCS: 71045; 80053; 81001; 82803; 83735; 85025; 87804; 93005; 94640; 96361; 96374; 99285; J2930; J7030

== ENCOUNTER 2018-07-01 22:36 | Emergency (ER) | payer OTHER | END 2018-07-02 06:26 | disposition home or self-care (01) | LOC: C.ER 22:36 ==

== ENCOUNTER 2018-08-05 20:02 | Emergency (ER) | payer OTHER ==
[2018-08-05 20:03] VITALS: BMI 19.2
[2018-08-05 20:11] VITALS: TEMP 98.6
[2018-08-05] MEDS ORDERED: Albuterol-Ipratrop 3 mg / 0.5 (3 ml) UD ONE ×2 (20:24→21:20)
[2018-08-05] MEDS ORDERED: Albuterol-Ipratrop 3 mg / 0.5 (3 ml) UD INH STA ×2 (21:00→21:19)
--- NOTE | 2018-08-05 21:55 | C.PDOC ---
History Of Present Illness 53 year old male drank a pint of ETOH today, smoke a half a pack of cigarettes, developed SOB with some dizziness while walking up to his apartment after smoking and drinking. Patient reports at the time he also felt like his heart was beating fast because of his anxiety which he states has since resolved. He has a Hx of asthma and reports some wheezing with his SOB, denies syncope. Patient is requesting detox, denies SI or HI. Currently he reports still feeling SOB. Time Seen by Provider: 08/05/18 20:48 Chief Complaint (Nursing): Palpitations History Per: Patient History/Exam Limitations: no limitations Onset/Duration Of Symptoms: Hrs Current Symptoms Are (Timing): Still Present Modifying Factor(s): Alcohol Associated Symptoms: denies: Suicidal Thoughts, Other (Homicidal ideation) Recent travel outside of the [place]: No Past Medical History Reviewed: Historical Data, Nursing Documentation, Vital Signs Vital Signs: Last Vital Signs Temp 98.6 F 08/05/18 20:09 Pulse 78 08/05/18 20:16 Resp 16 08/05/18 20:09 BP 131/83 08/05/18 20:09 Pulse Ox 91 L 08/05/18 20:09 - Medical History PMH: Anxiety, Asthma, COPD, HTN Denies: Diabetes, Hepatitis, HIV, Chronic Kidney Disease, Seizures, Sexually Transmitted Disease - [facility] Procedures DETOXIFICATION SERVICES FOR SUBSTANCE ABUSE TREATMENT (04/05/18) GROUP CORRECTIONAL CORPORAL FOR SUBSTANCE ABUSE TREATMENT, PSYCHOEDUCATION (04/05/18) INDIV PSYCHOTHERAPY FOR SUBSTANCE ABUSE TREATMENT, SUPPORT (04/05/18) MEDS MGMT FOR SUBSTANCE ABUSE TREATMENT, NICOTINE REPLACE (04/05/18) Family History: States: Unknown Family Hx - Social History Hx Tobacco Use: Yes Hx Alcohol Use: Yes Hx Substance Use: No - Immunization History Hx Tetanus Toxoid Vaccination: No Hx Influenza Vaccination: Yes Hx Pneumococcal Vaccination: Yes Review Of Systems Constitutional: Negative for: Fever, Chills Cardiovascular: Negative for: Chest Pain, Palpitations Respiratory: Positive for: Shortness of Breath, Wheezing Gastrointestinal: Negative for: Nausea, Vomiting Genitourinary: Negative for: Dysuria, Hematuria Musculoskeletal: Negative for: Back Pain Skin: Negative for: Rash Neurological: Negative for: Weakness, Numbness Psych: Negative for: Suicidal ideation, Other (Homicidal ideation) Physical Exam - Physical Exam Appears: Non-toxic, Other (Mildly intoxicated) Skin: Normal Color, Warm Head: Atraumatic, Normacephalic Oral Mucosa: Moist Neck: Normal, Supple Chest: Symmetrical, No Tenderness Cardiovascular: Rhythm Regular (Tachycardic) Respiratory: No Rales, No Rhonchi, Wheezing (Diffuse expiratory), Other (intermittent cough) Gastrointestinal/Abdominal: Soft, No Tenderness Neurological/Psych: Oriented x3, Normal Speech ED Course And Treatment - Laboratory Results Result Diagrams: 08/05/18 21:50 08/05/18 21:50 ECG: Interpreted By Me, Viewed By Me ECG Rhythm: Sinus Rhythm ECG Interpretation: Normal Interpretation Of ECG: Normal axis, mildly prolong qtc, no st elevations, no t wave changes Rate From EC O2 Sat by Pulse Oximetry: 91 (Room air) Pulse Ox Interpretation: Abnormal Medical Decision Making Medical Decision Making: Plan: * Blood work * CXR * Urinalysis * EKG * Duoneb * Solumedrol Patient given duoneb x2 and solumedrol ivp. He had significant improvement in symptoms, on re-evaluation he was sleeping comfortably in a position in the stretcher. Still states that he wants detox. However there are no detox beds available at this time. 0415- Patient awake, alert, ambulatory without assistance. No dyspnea or wheezing noted. Stable for discharge home at this time. Disposition - Disposition Disposition: HOME/ ROUTINE Disposition Time: 04:15 Condition: STABLE Additional Instructions: ALEXI OWUSU, thank you for letting us take care of you today. Your provider was Ana Maria Castellano MD and you were treated for SUBSTANCE ABUSE. The emergency medical care you received today was directed at your acute symptoms. If you were prescribed any medication, please fill it and take as directed. It may take several days for your symptoms to resolve. Return to the Emergency Department if your symptoms worsen, do not improve, or if you have any other problems. Please contact your doctor or call one of the physicians/clinics you have been referred to that are listed on the Patient Visit Information form that is included in your discharge packet. Bring any paperwork you were given at dischar ge with you along with any medications you are taking to your follow up visit. Our treatment cannot replace ongoing medical care by a primary care provider outside of the emergency department. Thank you for allowing the [facility] [employer] team to be part of your care today. If you had an X-Ray or CT scan: A Radiologist will review the ED reading if any change in treatment is needed we will contact you. If you had a blood, urine, or wound culture: It will take several days for the results, if any change in treatment is needed we will contact you. If you had an STI test: It will take 48 hours for the results. Please call after 1 week if you have not heard back. Instructions: Asthma, Adult (DC), Alcohol Abuse and Alcoholism (DC) Forms: [employer] (Colombian) - Clinical Impression Clinical Impression: Alcohol abuse, Asthma exacerbation - Scribe Statement The provider has reviewed the documentation as recorded by the Scribe Casey Arita All medical record entries made by the Scribe were at my direction and personally dictated by me. I have reviewed the chart and agree that the record accurately reflects my personal performance of the history, physical exam, medical decision making, and the department course for this patient. I have also personally directed, reviewed, and agree with the discharge instructions and disposition.
[2018-08-05 21:56] LABS: BASO # 0.1 K/uL (0.0-0.2); BASO % 1.6 % (0.0-2.0); EOS # 0.7 K/uL (0.0-0.7); EOS % 13.3 % (0.0-4.0); HEMOGLOBIN 15.9 g/dL (12.0-18.0); LYMPH # 2.7 K/uL (1.0-4.3); LYMPH % 50.3 % (20.0-40.0); MEAN CELL VOLUME 102.5 fL (80.0-94.0); MEAN CORPUSCULAR HEMOGLOBIN 34.3 pg (27.0-31.0); MEAN CORPUSCULAR HGB CONC 33.5 g/dL (33.0-37.0); MEAN PLATELET VOLUME 10.8 fL (7.2-11.7); MONO # 0.5 K/uL (0.0-0.8); MONO % 8.9 % (0.0-10.0); NEUT # 1.4 K/uL (1.8-7.0); NEUT % 25.9 % (50.0-75.0); NRBC % 0.3 % (0.0-2.0); RBC 4.64 Mil/uL (4.40-5.90); RED CELL DISTRIBUTION WIDTH 14.2 % (11.5-14.5); WHITE BLOOD COUNT 5.3 K/uL (4.8-10.8)
[2018-08-05 22:16] LABS: ALB/GLOB RATIO 1.5 (1.0-2.1); ALBUMIN 4.3 g/dL (3.5-5.0); ALT/SGPT 118 U/L (21-72); AST/SGOT 158 U/L (17-59); BLOOD UREA NITROGEN 8 mg/dL (9-20); CALCIUM 8.9 mg/dl (8.6-10.4); GFR NON-AFRICAN AMERICAN > 60
[2018-08-05 23:12] LABS: URINE BILIRUBIN NEGATIVE (NEGATIVE); URINE BLOOD NEGATIVE (NEGATIVE); URINE CLARITY Clear (Clear); URINE COLOR Yellow (YELLOW); URINE GLUCOSE (UA) NORMAL (Normal); URINE LEUKOCYTE ESTERASE NEG Leu/uL (Negative); URINE PROTEIN NEGATIVE (NEGATIVE)
[2018-08-05 23:22] LABS: BARBITURATES, UR NEGATIVE (NEGATIVE); BENZODIAZEPINES, UR NEGATIVE (NEGATIVE); OPIATES, UR NEGATIVE (NEGATIVE); PHENCYCLIDINE, UR NEGATIVE (NEGATIVE)
[2018-08-05 23:50] VITALS: BP 130/80; RESP 14
[2018-08-06 04:16] VITALS: PULSE 80
[2018-08-06 05:42] VITALS: O2SAT 91
--- NOTE | 2018-08-06 09:10 | RAD ---
Chest x-ray single frontal view HISTORY: Detox. COMPARISON: 06/16/2018 Findings: Hyperinflation suggestive for COPD and or emphysematous changes. Biapical pleural thickening with upper lobe granulomatous changes. Heart size within normal limits. Degenerative changes in the spine. Impression: Hyperinflation suggestive for COPD and or emphysematous changes. Biapical pleural thickening with upper lobe granulomatous changes. Heart size within normal limits. Degenerative changes in the spine.
== END 2018-08-06 04:17 | disposition home or self-care (01) ==
LOC: C.ER 20:02
DX: F10.10 Alcohol abuse, uncomplicated (principal); J45.901 Unspecified asthma with (acute) exacerbation; F17.210 Nicotine dependence, cigarettes, uncomplicated; I10 Essential (primary) hypertension
CPT/HCPCS: 71045; 80053; 80320; 80324; 80345; 80346; 80349; 80353; 80358; 80361; 81001; 83735; 83992; 84100; 85025; 99285; J2930

== ENCOUNTER 2018-08-10 22:38 | Observation (INO) | payer OTHER ==
[2018-08-10 22:38] VITALS: BMI 19.2
[2018-08-10] MEDS ORDERED: Albuterol-Ipratrop 3 mg / 0.5 (3 ml) UD ONE (23:03)
--- NOTE | 2018-08-10 23:03 | C.PDOC ---
Time Seen by Provider: 08/10/18 23:02 Chief Complaint (Nursing): Respiratory Distress Past Medical History Vital Signs: Last Vital Signs Temp 97.8 F 08/10/18 22:52 Pulse 80 08/10/18 22:52 Resp 26 H 08/10/18 22:52 BP 106/64 08/10/18 22:52 Pulse Ox 90 L 08/10/18 22:52 - Medical History PMH: Anxiety, Asthma, COPD, HTN Denies: Diabetes, Hepatitis, HIV, Chronic Kidney Disease, Seizures, Sexually Transmitted Disease - [facility] Procedures DETOXIFICATION SERVICES FOR SUBSTANCE ABUSE TREATMENT (04/05/18) GROUP LINE FIXER FOR SUBSTANCE ABUSE TREATMENT, PSYCHOEDUCATION (04/05/18) INDIV PSYCHOTHERAPY FOR SUBSTANCE ABUSE TREATMENT, SUPPORT (04/05/18) MEDS MGMT FOR SUBSTANCE ABUSE TREATMENT, NICOTINE REPLACE (04/05/18) Family History: States: Unknown Family Hx - Social History Hx Tobacco Use: Yes Hx Alcohol Use: Yes Hx Substance Use: No - Immunization History Hx Tetanus Toxoid Vaccination: No Hx Influenza Vaccination: Yes Hx Pneumococcal Vaccination: Yes ED Course And Treatment O2 Sat by Pulse Oximetry: 90 Disposition Counseled Patient/Family Regarding: Studies Performed, Diagnosis - Disposition Disposition Time: 23:02
[2018-08-10] MEDS ORDERED: Albuterol-Ipratrop 3 mg / 0.5 (3 ml) UD INH STA (23:06)
[2018-08-10 23:30] LABS: EOS # 0.5 K/uL (0.0-0.7); HEMOGLOBIN 15.2 g/dL (12.0-18.0); MEAN PLATELET VOLUME 11.2 fL (7.2-11.7); MONO # 0.6 K/uL (0.0-0.8); WHITE BLOOD COUNT 4.4 K/uL (4.8-10.8)
[2018-08-10 23:35] LABS: BASO % 0.5 % (0.0-2.0); EOS % 12.2 % (0.0-4.0); MEAN CELL VOLUME 103.4 fL (80.0-94.0); MEAN CORPUSCULAR HEMOGLOBIN 35.5 pg (27.0-31.0); MEAN CORPUSCULAR HGB CONC 34.3 g/dL (33.0-37.0); MONO % 12.6 % (0.0-10.0); NEUT # 1.3 K/uL (1.8-7.0); NEUT % 28.7 % (50.0-75.0); NRBC % 0.2 % (0.0-2.0); RBC 4.29 Mil/uL (4.40-5.90); RED CELL DISTRIBUTION WIDTH 14.2 % (11.5-14.5)
[2018-08-10 23:41] LABS: ALB/GLOB RATIO 1.5 (1.0-2.1); ALBUMIN 4.1 g/dL (3.5-5.0); ALT/SGPT 176 U/L (21-72); AST/SGOT 223 U/L (17-59); BLOOD UREA NITROGEN 9 mg/dL (9-20); CALCIUM 8.4 mg/dl (8.6-10.4); GFR NON-AFRICAN AMERICAN > 60
[2018-08-10 23:44] LABS: BARBITURATES, UR NEGATIVE (NEGATIVE); BENZODIAZEPINES, UR NEGATIVE (NEGATIVE); OPIATES, UR NEGATIVE (NEGATIVE); PHENCYCLIDINE, UR NEGATIVE (NEGATIVE)
[2018-08-11] MEDS ORDERED: Albuterol-Ipratrop 3 mg / 0.5 (3 ml) UD INH STA (00:12)
--- NOTE | 2018-08-11 00:19 | C.PDOC ---
History Of Present Illness 53 year old male brought in by EMS for SOB. Patient is a well known local homeless alcoholic, mentally ill. He was seen here on 08/05/18 for evaluation of similar. Patient has Hx of COPD, still smokes half a pack a day, still drinks daily. Time Seen by Provider: 08/10/18 23:02 Chief Complaint (Nursing): Respiratory Distress History Per: Patient History/Exam Limitations: no limitations Onset/Duration Of Symptoms: Hrs Current Symptoms Are (Timing): Still Present Current Respiratory Medications: See Home Med List Associated Symptoms: denies: Fever, Chills Recent travel outside of the [place]: No Past Medical History Reviewed: Historical Data, Nursing Documentation, Vital Signs Vital Signs: Last Vital Signs Temp 97.8 F 08/10/18 22:52 Pulse 80 08/10/18 22:52 Resp 22 08/10/18 23:04 BP 106/64 08/10/18 22:52 Pulse Ox 99 08/10/18 23:04 - Medical History PMH: Anxiety, Asthma, COPD, HTN Denies: Diabetes, Hepatitis, HIV, Chronic Kidney Disease, Seizures, Sexually Transmitted Disease - [facility] Procedures DETOXIFICATION SERVICES FOR SUBSTANCE ABUSE TREATMENT (04/05/18) GROUP PHOTOGRAPHIC LITHOGRAPHER FOR SUBSTANCE ABUSE TREATMENT, PSYCHOEDUCATION (04/05/18) INDIV PSYCHOTHERAPY FOR SUBSTANCE ABUSE TREATMENT, SUPPORT (04/05/18) MEDS MGMT FOR SUBSTANCE ABUSE TREATMENT, NICOTINE REPLACE (04/05/18) Family History: States: Unknown Family Hx - Social History Hx Tobacco Use: Yes Hx Alcohol Use: Yes Hx Substance Use: No - Immunization History Hx Tetanus Toxoid Vaccination: No Hx Influenza Vaccination: Yes Hx Pneumococcal Vaccination: Yes Review Of Systems Constitutional: Negative for: Fever, Chills Cardiovascular: Negative for: Chest Pain, Palpitations Respiratory: Positive for: Shortness of Breath. Negative for: Cough Gastrointestinal: Negative for: Nausea, Vomiting Neurological: Negative for: Weakness, Numbness Physical Exam - Physical Exam Appears: Chronically Ill, Other (ETOH on breath, bizarre affect, calm, cooperative, thin) Skin: Normal Color, Warm Head: Atraumatic, Normacephalic Oral Mucosa: Moist Neck: Normal, Supple Chest: Symmetrical, No Tenderness Cardiovascular: Rhythm Regular Respiratory: No Rales, Rhonchi, Wheezing, Other (poor air movement) Gastrointestinal/Abdominal: Soft, No Tenderness Neurological/Psych: Oriented x3, Normal Speech ED Course And Treatment - Laboratory Results Result Diagrams: 08/10/18 23:25 08/10/18 23:25 Lab Results: Troponin I < 0.0120 ng/mL (0.00-0.120) 08/10/18 23:25 Total Bilirubin 0.7 mg/dL (0.2-1.3) 08/10/18 23:25 AST 223 U/L (17-59) H D 08/10/18 23:25 ALT 176 U/L (21-72) H D 08/10/18 23:25 Alkaline Phosphatase 67 U/L (38-126) 08/10/18 23:25 Total Protein 6.8 g/dL (6.3-8.3) 08/10/18 23:25 Albumin 4.1 g/dL (3.5-5.0) 08/10/18 23:25 Globulin 2.7 gm/dL (2.2-3.9) 08/10/18 23:25 Albumin/Globulin Ratio 1.5 (1.0-2.1) 08/10/18 23:25 Lab Interpretation: Abnormal (ETOH 266 H) ECG: Interpreted By Me ECG Rhythm: Sinus Rhythm ECG Interpretation: Normal Rate From EC O2 Sat by Pulse Oximetry: 99 (room air) Pulse Ox Interpretation: Normal - Radiology CXR: Interpreted by Me CXR Interpretation: Yes: No Acute Disease Reevaluation Time: 00:19 Reassessment Condition: Improved (but still mild inspt/exp wheezing, resting comfortably, normal voice, no SOB) - Physician Consult Information Outcome Of Conversation: 0015: d/w Dr. Denny Huerta- Admitted 03/14, ok to Tele obs Medical Decision Making Medical Decision Making: COPD Exacerbation Still smoking no pna defer abx ETOH/Psych ETOH 266 H CIMD protocol Consider transfer to Detox as available when medically stable Disposition Doctor Will See Patient In The: Hospital Counseled Patient/Family Regarding: Studies Performed, Diagnosis - Disposition Disposition: HOSPITALIZED Disposition Time: 00:20 Condition: GOOD - Clinical Impression Clinical Impression: Chronic obstructive lung disease, Alcohol dependence - Scribe Statement The provider has reviewed the documentation as recorded by the Scribe Casey Arita All medical record entries made by the Scribe were at my direction and personally dictated by me. I have reviewed the chart and agree that the record accurately reflects my personal performance of the history, physical exam, medical decision making, and the department course for this patient. I have also personally directed, reviewed, and agree with the discharge instructions and disposition.
[2018-08-11] MEDS ORDERED: Albuterol-Ipratrop 3 mg / 0.5 (3 ml) UD INH PRN (00:51)
[2018-08-11 01:32] VITALS: RESP 20
--- NOTE | 2018-08-11 07:40 | RAD ---
Date of service: 08/10/2018 HISTORY: SOB COMPARISON: None available. TECHNIQUE: 1 view obtained. FINDINGS: LUNGS: Hyperinflation again evident. No acute infiltrate identified bilaterally. PLEURA: No significant pleural effusion identified, no pneumothorax apparent. CARDIOVASCULAR: No aortic atherosclerotic calcification present. Normal cardiac size. No pulmonary vascular congestion. OSSEOUS STRUCTURES: No significant abnormalities. VISUALIZED UPPER ABDOMEN: Normal. OTHER FINDINGS: None. IMPRESSION: Stable hyperinflation. No acute infiltrate, pleural effusion or pneumothorax appreciable. No pulmonary vascular congestion.
[2018-08-11 08:18] VITALS: BP 149/80; PULSE 74; TEMP 98.8; O2SAT 94
[2018-08-11] MEDS ORDERED: cefTRIAXone IV 1 gm in Dextros 50 ML IVPB SCH (10:00)
[2018-08-11] MEDS ORDERED: Enoxaparin 40 mg Syringe SC SCH (10:00)
[2018-08-11] MEDS ORDERED: Multiple Vitamins Tab PO SCH (10:00)
[2018-08-11] MEDS ORDERED: Azithromycin 500mg/250ML NS 500 MG/250 ML BAG IVPB SCH (10:00)
[2018-08-11] MEDS ORDERED: Pantoprazole 40 mg EC Tab PO SCH (10:00)
[2018-08-11] MEDS ORDERED: MethylPREDNISolone 40 mg Vial IV SCH (14:00)
--- NOTE | 2018-08-11 22:56 | CP.PCM.HP ---
History of Present Illness - History of Present Illness History of Present Illness: 53-year-old male with history of anxiety asthma COPD hypertension admitted with the shortness of breath patient is a very well-known alcoholic patient has bipolar disorder eventually patient felt better after he received a few treatmen t patient also has no fever patient eventually decided to leave Present on Admission - Present on Admission Any Indicators Present on Admission: No Past Patient History - Infectious Disease Hx of Infectious Diseases: None - Past Medical History & Family History Past Medical History?: Yes - Past Social History Smoking Status: Heavy Smoker > 10 Cigarettes Daily - CARDIAC Hx Hypertension: Yes - PULMONARY Hx Asthma: Yes Hx Chronic Obstructive Pulmonary Disease (COPD): Yes - NEUROLOGICAL Hx Seizures: No - HEENT Hx HEENT Problems: No - RENAL Hx Chronic Kidney Disease: No - ENDOCRINE/METABOLIC Hx Endocrine Disorders: No - HEMATOLOGICAL/ONCOLOGICAL Hx Human Immunodeficiency Virus (HIV): No - INTEGUMENTARY Hx Dermatological Problems: No - MUSCULOSKELETAL/RHEUMATOLOGICAL Hx Musculoskeletal Disorders: No Hx Falls: No - GASTROINTESTINAL Hx Gastrointestinal Disorders: No - GENITOURINARY/GYNECOLOGICAL Hx Sexually Transmitted Disorders: No - PSYCHIATRIC Hx Anxiety: Yes Hx Substance Use: No - SURGICAL HISTORY Hx Surgeries: Yes Other/Comment: "skull cracked" - ANESTHESIA Hx Anesthesia: Yes Hx Anesthesia Reactions: No Hx Malignant Hyperthermia: No Meds Allergies/Adverse Reactions: Allergies Allergy/AdvReac Type Severity Reaction Status Date / Time No Known Allergies Allergy Verified 08/10/18 22:58 Physical Exam - Head Exam Head Exam: ATRAUMATIC, NORMAL INSPECTION, NORMOCEPHALIC - Eye Exam Eye Exam: Normal appearance - ENT Exam ENT Exam: Mucous Membranes Moist - Neck Exam Neck exam: Positive for: Full Rom - Respiratory Exam Respiratory Exam: Decreased Breath Sounds - Cardiovascular Exam Cardiovascular Exam: REGULAR RHYTHM, +S1, +S2 - GI/Abdominal Exam GI & Abdominal Exam: Diminished Bowel Sounds, Distended, Soft - Rectal Exam Rectal Exam: Deferred - Neurological Exam Neurological exam: Oriented x3 Results - Vital Signs Recent Vital Signs: Last Vital Signs Temp 98.8 F 08/11/18 08:16 Pulse 74 08/11/18 08:16 Resp 20 08/11/18 08:16 BP 149/80 08/11/18 08:16 Pulse Ox 94 L 08/11/18 08:16 - Labs Result Diagrams: 08/10/18 23:25 04/16/19 23:25 Labs: Laboratory Results - last 24 hr 08/10/18 08/10/18 08/10/18 23:25 23:25 23:25 WBC 4.4 L RBC 4.29 L Hgb 15.2 Hct 44.4 MCV 103.4 H MCH 35.5 H MCHC 34.3 RDW 14.2 Plt Count 115 L MPV 11.2 Neut % (Auto) 28.7 L Lymph % (Auto) 46.0 H [place] % (Auto) 12.6 H Eos % (Auto) 12.2 H Baso % (Auto) 0.5 Neut # (Auto) 1.3 L Lymph # (Auto) 2.0 [place] # (Auto) 0.6 Eos # (Auto) 0.5 Baso # (Auto) 0.0 Sodium 143 Potassium 3.6 Chloride 107 Carbon Dioxide 27 Anion Gap 12 BUN 9 Creatinine 0.8 Est GFR ( Amer) > 60 Est GFR (Non-Af Amer) > 60 Random Glucose 125 H D Calcium 8.4 L Total Bilirubin 0.7 AST 223 H D ALT 176 H D Alkaline Phosphatase 67 Troponin I < 0.0120 Total Protein 6.8 Albumin 4.1 Globulin 2.7 Albumin/Globulin Ratio 1.5 Urine Opiates Screen Negative Urine Methadone Screen Negative Ur Barbiturates Screen Negative Ur Phencyclidine Scrn Negative Ur Amphetamines Screen Negative U Benzodiazepines Scrn Negative U Oth Cocaine Metabols Negative U Cannabinoids Screen Negative Alcohol, Quantitative 266 H Assessment & Plan - Assessment and Plan (Free Text) Plan: pt decided to sign out against med advised pt said i want ot leave discuse dith staff psych consult Pulmonary CIWA protocol Thiamine Steroid Antibiotic Solu-Medrol DuoNeb if decides to stay back
--- NOTE | 2018-08-12 14:00 | CARD ---
APPROVED REPORT Date of service: 08/10/2018 EKG Measurement Heart [id number] <Conclusion> Normal sinus rhythm Normal ECG
== END 2018-08-11 11:45 | disposition left against medical advice (07) ==
LOC: C.ER 22:38 → C.9E 08-11 00:21 → C.6T 08-11 00:44
PROVIDERS: ADMIT Internal Medicine Nephrology; ATTEND Internal Medicine Nephrology
DX: J44.1 Chronic obstructive pulmonary disease with (acute) exacerbation (principal); I10 Essential (primary) hypertension; F17.210 Nicotine dependence, cigarettes, uncomplicated; F10.20 Alcohol dependence, uncomplicated; Y90.8 Blood alcohol level of 240 mg/100 ml or more; Z59.0 Homelessness
CPT/HCPCS: 71045; 80053; 80320; 80324; 80345; 80346; 80349; 80353; 80358; 80361; 83992; 84484; 85025; 93005; 96365; 96367; 96372; 96375; 96376; 99285; G0378; J0456; J0696; J1650; J2930

== ENCOUNTER 2018-08-26 20:03 | Emergency (ER) | payer OTHER | END 2018-08-26 23:57 | disposition home or self-care (01) | LOC: C.ER 20:03 ==

== ENCOUNTER 2018-08-27 13:43 | Inpatient (IN) | payer OTHER ==
[2018-08-27 13:59] VITALS: BMI 18.8
--- NOTE | 2018-08-27 14:53 | C.PDOC ---
History Of Present Illness This 53 year old male with PMHx of anxiety, asthma, and HTN - presents to the [facility] ED c/o SOB and "shakes" since this morning. He is a well known local homeless, alcoholic with suspected bipolar disease. He was last seen here yest DANTE guillen for similar symptoms, was stabilized, and discharged with [facility] followup, however he did not establish care. He is requesting ETOH detox for his chronic history of drinking 1pt of vodka per day for "several years" in order to manage his own anxiety symptoms. He is also c/o wheezing, for which he self medicates with his daughters Ventolin HFA 90mcg inhaler up to 10x per day. He admits to mild shakiness, but is able to ambulate well. Denies chest pain, over SOB, n/v, d/c, abdominal pain, or any additional acute complaints. He is AAOx3 with no episodes of syncope, dysarthria, or slurring of speech. Review of Systems: -Gen: No fever, No chills, No headache, No lethargy, No weakness. -HEENT: No dizziness, No change in vision, No change in hearing, No sore throat, No dysphagia, +rhinorrhea congestion, No mucous. -Cardio: No chest pain, No palpitations, No lower extremity edema, No orthopnea. -Resp: + cough, No dyspnea, No hemoptysis, + wheezing, No pain on inspiration. -GI: No abdominal pain, No nausea/vomiting, No diarrhea/constipation, No hem atochezia, No hematemesis. -: No dysuria, No urinary freq, No incontinence, No hematuria, No change in urinary stream. -MSK: No back pain, No muscle weakness, No radiating pain. -Skin: No itching, No rash, No lesions. -Neuro: No confusion, No numbness, No tingling, No focal weakness, No radicular pain, No syncope. -Psych: + anxiety, + depression, No H/I, No S/I, No hallucinations. <Yasmany Singh - Last Filed: 08/27/18 17:41> <Yasmany Singh - Last Filed: 08/27/18 17:41> <Anabell Larkin - Last Filed: 08/30/18 10:42> Time Seen by Provider: 08/27/18 14:37 Chief Complaint (Nursing): Shortness Of Breath Past Medical History Vital Signs: Last Vital Signs Temp 98.2 F 08/27/18 13:57 Pulse 82 08/27/18 13:57 Resp 18 08/27/18 13:57 BP 128/93 H 08/27/18 13:57 Pulse Ox 93 L 08/27/18 13:57 Primary Care Provider: FAMILY PROVIDER,NO - Medical History PMH: Anxiety, Asthma, COPD, Depression, HTN Denies: Diabetes, Hepatitis, HIV, Chronic Kidney Disease, Seizures, Sexually Transmitted Disease - [facility] Procedures DETOXIFICATION SERVICES FOR SUBSTANCE ABUSE TREATMENT (04/05/18) GROUP MAIL DELIVERER FOR SUBSTANCE ABUSE TREATMENT, PSYCHOEDUCATION (04/05/18) INDIV PSYCHOTHERAPY FOR SUBSTANCE ABUSE TREATMENT, SUPPORT (04/05/18) MEDS MGMT FOR SUBSTANCE ABUSE TREATMENT, NICOTINE REPLACE (04/05/18) Family History: States: Unknown Family Hx - Social History Hx Tobacco Use: Yes Hx Alcohol Use: Yes Hx Substance Use: No - Immunization History Hx Tetanus Toxoid Vaccination: Yes Hx Influenza Vaccination: Yes Hx Pneumococcal Vaccination: Yes <Yasmany Singh - Last Filed: 08/27/18 17:41> Vital Signs: Last Vital Signs Temp 97.6 F 08/30/18 08:45 Pulse 83 08/30/18 08:45 Resp 18 08/30/18 08:45 BP 123/83 08/30/18 08:45 Pulse Ox 93 L 08/30/18 08:45 - [facility] Procedures DETOXIFICATION SERVICES FOR SUBSTANCE ABUSE TREATMENT (04/05/18) GROUP MAIL DELIVERER FOR SUBSTANCE ABUSE TREATMENT, PSYCHOEDUCATION (04/05/18) INDIV PSYCHOTHERAPY FOR SUBSTANCE ABUSE TREATMENT, SUPPORT (04/05/18) MEDS MGMT FOR SUBSTANCE ABUSE TREATMENT, NICOTINE REPLACE (04/05/18) <Anabell Larkin - Last Filed: 08/30/18 10:42> Physical Exam - Physical Exam Appears: Well, Non-toxic Skin: Normal Color Head: Atraumatic Nose: No Tenderness, Other (rhinorrhea) Oral Mucosa: Moist Neck: Normal, Normal ROM Cardiovascular: Rhythm Regular, No Friction Rub, No Murmur Respiratory: No Decreased Breath Sounds, No Rales, Rhonchi, Wheezing Gastrointestinal/Abdominal: Normal Exam, Bowel Sounds, Soft, No Tenderness Extremity: Normal ROM, No Tenderness, No Calf Tenderness Neurological/Psych: Oriented x3, Normal Speech, Normal Cognition, Normal Cranial Nerves, No Cerebellar Signs, Normal Motor, Normal Reflexes, Other (no asterixis, +tremor) Gait: Steady <Yasmany Singh - Last Filed: 08/27/18 17:41> ED Course And Treatment - Laboratory Results Result Diagrams: 08/27/18 16:15 08/27/18 16:15 O2 Sat by Pulse Oximetry: 93 <FranciscoYasmany - Last Filed: 08/27/18 17:41> - Laboratory Results Result Diagrams: 08/27/18 16:15 08/27/18 16:15 Lab Results: Total Bilirubin 0.9 mg/dL (0.2-1.3) 08/27/18 16:15 AST 184 U/L (17-59) H 08/27/18 16:15 ALT 215 U/L (21-72) H D 08/27/18 16:15 Alkaline Phosphatase 86 U/L (38-126) 08/27/18 16:15 Total Protein 7.9 g/dL (6.3-8.3) 08/27/18 16:15 Albumin 4.6 g/dL (3.5-5.0) 08/27/18 16:15 Globulin 3.3 gm/dL (2.2-3.9) 08/27/18 16:15 Albumin/Globulin Ratio 1.4 (1.0-2.1) 08/27/18 16:15 Urine Color Yellow (YELLOW) 08/27/18 16:25 Urine Clarity Clear (Clear) 08/27/18 16:25 Urine pH 6.0 (5.0-8.0) 08/27/18 16:25 Ur Specific [place] 1.012 (1.003-1.030) 08/27/18 16:25 Urine Protein Negative mg/dL (NEGATIVE) 08/27/18 16:25 Urine Glucose (UA) Normal mg/dL (Normal) 08/27/18 16:25 Urine Ketones Negative mg/dL (NEGATIVE) 08/27/18 16:25 Urine Blood Negative (NEGATIVE) 08/27/18 16:25 Urine Nitrate Negative (NEGATIVE) 08/27/18 16:25 Urine Bilirubin Negative (NEGATIVE) 08/27/18 16:25 Urine Urobilinogen 4.0 mg/dL (0.2-1.0) 08/27/18 16:25 Ur Leukocyte Esterase Trace Baljit/uL (Negative) 08/27/18 16:25 Urine WBC (Auto) 6 /hpf (0-5) H 08/27/18 16:25 Urine RBC (Auto) 1 /hpf (0-3) 08/27/18 16:25 Urine Bacteria Occ (<OCC) H 08/27/18 16:25 <Anabell Larkin - Last Filed: 08/30/18 10:42> Medical Decision Making Medical Decision Makin:05 -pt evaluated, positive wheezes, positive tremor from ETOH abuse daily. -Vitals stable -No beds available in detox. Spoke with crisis team, patient added to wait list and will be contacted when to return for detox -pt encouraged to establish care with [facility] for management of chronic Asthma and Anxiety. -Asthma Exacerbation- Duonebs q15min x3; Prednisone 60mg PO once 15:35 -ETOH Abuse disorder-> bed opened in detox, pt wants to be admitted -f/u CBC, CMP, CASTRO, UA, UDS 16:51 -pt reassesed, breathing stable, wheezing improved, patient requesting when he can go to detox -CBC stable, MCV elevated due to ETOH consumption - consistent with prior readings -LFTs elevated 4x above ULN. AST>ALT, likely 2/2 ETOH abuse -BAL elevated -patient stable for transfer to detox and eventual f/u with clinic to establish care with PMD. 17:30 -call back from crisis team, bed available for admission to detox unit under Dr. Carter for ETOH use d/o. <Yasmany Singh - Last Filed: 08/27/18 17:41> Disposition Counseled Patient/Family Regarding: Studies Performed, Diagnosis - Disposition Disposition Time: 17:30 <Yasmany Singh - Last Filed: 08/27/18 17:41> <Anabell Larkin - Last Filed: 08/30/18 10:42> - Disposition Disposition: HOSPITALIZED Condition: IMPROVED - Clinical Impression Clinical Impression: Dyspnea, Asthma exacerbation, Alcohol abuse, Alcohol intoxication, Transaminitis
[2018-08-27] MEDS: Albuterol-Ipratrop 3 mg / 0.5 (3 ml) UD INH SCH ×3 (15:24→16:26)
[2018-08-27] MEDS ORDERED: Albuterol-Ipratrop 3 mg / 0.5 (3 ml) UD ONE (15:25)
[2018-08-27 16:21] LABS: BASO # 0.1 K/uL (0.0-0.2); BASO % 1.4 % (0.0-2.0); EOS # 0.5 K/uL (0.0-0.7); EOS % 9.6 % (0.0-4.0); HEMOGLOBIN 15.5 g/dL (12.0-18.0); LYMPH # 2.1 K/uL (1.0-4.3); LYMPH % 40.2 % (20.0-40.0); MEAN CELL VOLUME 103.3 fL (80.0-94.0); MEAN CORPUSCULAR HEMOGLOBIN 34.8 pg (27.0-31.0); MEAN CORPUSCULAR HGB CONC 33.7 g/dL (33.0-37.0); MEAN PLATELET VOLUME 11.4 fL (7.2-11.7); MONO # 0.5 K/uL (0.0-0.8); MONO % 9.7 % (0.0-10.0); NEUT % 39.1 % (50.0-75.0); RBC 4.47 Mil/uL (4.40-5.90); RED CELL DISTRIBUTION WIDTH 14.3 % (11.5-14.5); WHITE BLOOD COUNT 5.1 K/uL (4.8-10.8)
[2018-08-27 16:30] LABS: URINE BACTERIA OCC (<OCC); URINE BILIRUBIN NEGATIVE (NEGATIVE); URINE BLOOD NEGATIVE (NEGATIVE); URINE CLARITY Clear (Clear); URINE COLOR Yellow (YELLOW); URINE GLUCOSE (UA) NORMAL (Normal); URINE LEUKOCYTE ESTERASE TRACE Leu/uL (Negative); URINE PROTEIN NEGATIVE (NEGATIVE)
[2018-08-27 16:33] LABS: ALB/GLOB RATIO 1.4 (1.0-2.1); ALBUMIN 4.6 g/dL (3.5-5.0); ALT/SGPT 215 U/L (21-72); AST/SGOT 184 U/L (17-59); BLOOD UREA NITROGEN 12 mg/dL (9-20); CALCIUM 9.2 mg/dl (8.6-10.4); GFR NON-AFRICAN AMERICAN > 60
[2018-08-27 16:44] LABS: BARBITURATES, UR NEGATIVE (NEGATIVE); BENZODIAZEPINES, UR NEGATIVE (NEGATIVE); OPIATES, UR NEGATIVE (NEGATIVE); PHENCYCLIDINE, UR NEGATIVE (NEGATIVE)
--- NOTE | 2018-08-27 19:26 | PCM.BM ---
<Jason Morgan - Last Filed: 08/27/18 19:25> Treatment Plan Problems - Problems identified on initial assessmt Anxiety related to substance use Date Initiated: 08/27/18 Time Initiated: 19:25 Assessment reference: NA Status: Active defensive coping Date Initiated: 08/27/18 Time Initiated: 19:25 Assessment reference: NA Status: Active denial Date Initiated: 08/27/18 Time Initiated: 19:25 Assessment reference: NA Status: Active Treatment assets and liabiliti Patient Assests: cooperative, motivated, negotiates basic needs Patient Liabilities: substance abuse - Milieu Protocol Maintain good personal hygiene: daily Encourage regular showers, daily Remind patient to perform daily oral care, daily Assist patient to perform ADL's Conduct patient checks and document Observation sheet: Q15 minutes Maintain personal safety: every shift Educate patient to report safety concerns to staff, every shift Monitor environment for contraband/sharps Medication safety: Monitor for expected outcome, potential side effects: every shift, Assess barriers to learning: every shift, Assess readiness for medication education: every shift <Gagan Carter - Last Filed: 08/30/18 22:24> - Diagnosis (1) Alcohol dependence Status: Acute Interventions: 08/30/18 22:24 * Assess 7x/week regarding severity of withdrawal * Educate regarding risks, benefits, side effects and alternatives of medications * Use Motivational Interviewing for abstinence * Use CBT for relapse prevention * Medication management for withdrawal symptoms * Encourage medication assisted treatment *
[2018-08-27] MEDS: Albuterol HFA 90 mcg/actuation (8 g) INH PRN (23:19)
[2018-08-28] MEDS: Albuterol HFA 90 mcg/actuation (8 g) INH PRN ×2 (03:18→09:17)
[2018-08-28] MEDS ORDERED: Albuterol-Ipratrop 3 mg / 0.5 (3 ml) UD INH STA (06:34)
--- NOTE | 2018-08-28 13:07 | PCM.PSYCH ---
Initial Psychiatric Evaluation - Initial Psychiatric Evaluation Type of Admission: Voluntary Legal Status: Capacity Chief Complaint (in patient's own words): I want to stop drinking alcohol. History of Present Illness and Precipitating Events: Patient is a 53 years old, single, part-time working, male with no previous psychiatric history was admitted due to withdrawing from alcohol. Alcohol: Patient started drinking alcohol at 23 years of age, increased gradually. Currently he was drinking 1 pint of vodka daily. Last drink yesterday. History of 1 previous detox but no rehab. Denied use of any drugs including cocaine, cannabis and heroin. He smokes half pack of cigarettes daily and is requesting for nicotine patch. Patient was born in [place], moved to [facility] at 3 months of age with parents. Has GED. He works off and on. Lives with family or friends. Single has 4 grownup children from 2 females. His height is 5 feet 11 inches and weight is 135 pounds. Current Medications: Active Medications Generic Name Dose Route Start Last Admin Trade Name Freq PRN Reason Stop Dose Admin Albuterol 1 puff 08/27/18 22:45 08/28/18 09:17 Ventolin Hfa 90 Mcg/Actuation (8 G) INH 1 puff RQ4 PRN Administration Wheezing Albuterol/Ipratropium 3 ml 08/27/18 15:15 08/27/18 16:26 Duoneb 3 Mg/0.5 Mg (3 Ml) Ud INH 08/29/18 15:16 3 ml Q15MIN SAVANNAH Administration Clonidine HCl 0.1 mg 08/27/18 21:50 Catapres PO Q4H PRN Symptoms of alcohol withdrawl Folic Acid 1 mg 08/28/18 13:00 Folic Acid PO DAILY SAVANNAH Gabapentin 300 mg 08/28/18 18:00 Neurontin PO BID SAVANNAH Ibuprofen 400 mg 08/28/18 12:53 Motrin Tab PO Q6 PRN Pain, moderate (4-7) Lorazepam 2 mg 08/27/18 19:45 08/28/18 12:17 Ativan PO 09/01/18 19:44 2 mg Q4 SAVANNAH Administration Taper Multivitamins 1 tab 08/28/18 13:00 Hexavitamin PO DAILY SAVANNAH Nicotine 1 patch 08/28/18 10:00 08/28/18 09:06 Nicoderm Cq TD 1 patch DAILY SAVANNAH Administration Thiamine HCl 100 mg 08/28/18 13:00 Vitamin B1 Tab PO DAILY SAVANNAH Trazodone HCl 50 mg 08/27/18 21:50 08/27/18 22:19 Desyrel PO 50 mg HS PRN Administration Insomnia Past Psychiatric History - Past Psychiatric History Previous Treatment History: Inpatient Explanation of prior treatment: 1 previous detox History of Abuse: None reported History of ETOH/Drug Use: See HPI History of Family Illness: None reported Pertinent Medical Hx (Current Medical&Sleep Prob, Allergies): Allergies Allergy/AdvReac Type Severity Reaction Status Date / Time No Known Allergies Allergy Verified 08/27/18 13:56 No Known Home Med 08/27/18 Asthma COPD Review of Systems - Psychiatric Psychiatric: As Per HPI, Anhedonia, Anxiety Mental Status Examination - Personal Presentation Personal Presentation: Looks stated age - Affect Affect: Other (Anxious) - Motor Activity Motor Activity: Calm - Reliability in Providing Information Reliability in Providing Information: Fair - Speech Speech: Organized - Mood Mood: Anxious - Formal Thought Process Formal Thought Process: No Impairment - Hallucinations/Delusions Hallucinations: Other (None reported) Delusions: Other - Obsessions/Compulsions Obsessions: None Compulsions: None - Cognitive Functions Orientation: Person, Place, Situation, Time Sensorium: Alert Attention/Concentration: Attentive Abstract Thinking: [place] Estimate of Intelligence: Average Judgement: Intact, as evidence by: Insight regarding need for hospitalization Memory: Recent intact, as evidence by: Ability to recall events of the day, Remote intact, as evidenced by: Ability to recall historical events - Risk Risk: Withdrawal, Diminished functioning - Strength & Assets Inventory Strength & Assets Inventory: Family support, Cooperative - Limitations Limitations: Other (Lives with family or friends) DSM 5 DX - DSM 5 DSM 5 Diagnosis: Alcohol withdrawal Alcohol use disorder severe - Recommended/Plan of Treatment Treatment Recommendations and Plan of Treatment: Patient education. Supportive therapy. CBT for relapse prevention. UT for abstinence. We will start Ativan taper for alcohol withdrawal symptoms. Other as needed medications. Patient wants to go to short-term rehab for follow-up care after discharge from the hospital. Projected ELOS: 4-5 days - Smoking Cessation Smoking Cessation Initiated: Yes
[2018-08-28] MEDS: Multiple Vitamins Tab PO SCH (13:36)
[2018-08-28] MEDS: guaiFENesin 100 mg/5 ml Syrup UD PO PRN (22:13)
[2018-08-29] MEDS: Multiple Vitamins Tab PO SCH (10:08)
--- NOTE | 2018-08-29 17:39 | PCM.PYCHPN ---
Psychiatric Progress Note - Psychiatric Progress Note Patient seen today, length of contact: 15 minutes Patient Chief Complaint: I am feeling little better. Problems Identified/Issues Discussed: Patient seen, chart reviewed, case discussed with the staff. Issues related to illness and treatment were discussed with the patient and staff. Reported compliant with treatment with no adverse effects. Tolerating treatment very well. Patient reported feeling little better. Patient still has withdrawal symptoms including shaking, sweating, body aches and nausea. Mood reported as anxious. Affect appropriate. Staff reported no behavioral disturbance. Patient was awake, alert and oriented x3. Aftercare discussed with the patient. Patient denied any delusions, auditory or visual hallucinations, no suicidal ideations or homicidal ideations at the time of the evaluation. Medical Problems: Asthma COPD Diagnostic Results: Reviewed DSM 5 Symptoms Update: Some improvement with treatment Medication Change: No Medical Record Reviewed: Yes Mental Status Examination - Cognitive Function Orientation: Person, Place, Situation, Time Memory: Intact Attention: WNL Concentration: WNL Association: WNL Fund of Knowledge: [facility] Decription of patient's judgement and insights: Fair - Mood Mood: Anxious - Affect Affect: Other (Anxious) - Speech Speech: Appropriate - Formal Thought Process Formal Thought Process: No Impairment Psychotic Thoughts and Behaviors: None - Suicidal Ideation Suicidal Ideation: No - Homicidal Ideation Homicidal Ideation: No Goal/Treatment Plan - Goal/Treatment Plan Need for Continued Stay: Remain at risks for inpatient hospitalization, Discharge may exacerbated symptoms, Severe functional impairment Progress Toward Problem(s) and Goals/Treatment Plan: Patient education. Supportive therapy. CBT for relapse prevention. RI for abstinence. Continue treatment as before Patient wants to go to short-term rehab for follow-up care after discharge from the hospital. Estimated Date of D/C: 09/01/18 - Smoking Cessation Smoking Cessation Initiated: Yes
[2018-08-29] MEDS: Albuterol HFA 90 mcg/actuation (8 g) INH PRN (18:38)
[2018-08-29] MEDS: guaiFENesin 600 mg ER Tab PO SCH (20:40)
[2018-08-29] MEDS ORDERED: Albuterol-Ipratrop 3 mg / 0.5 (3 ml) UD INH STA (23:39)
[2018-08-30 06:07] VITALS: RESP 18
[2018-08-30] MEDS: Albuterol HFA 90 mcg/actuation (8 g) INH PRN ×3 (08:21→21:31)
[2018-08-30] MEDS: guaiFENesin 600 mg ER Tab PO SCH ×2 (09:28→18:35)
[2018-08-30] MEDS: Multiple Vitamins Tab PO SCH (09:28)
[2018-08-30] MEDS: guaiFENesin 100 mg/5 ml Syrup UD PO PRN (09:28)
--- NOTE | 2018-08-30 10:08 | PCM.PYCHPN ---
Psychiatric Progress Note - Psychiatric Progress Note Patient seen today, length of contact: 15 minutes Patient Chief Complaint: "My asthma is worrying me" Problems Identified/Issues Discussed: The pt is seen, chart reviewed, case is discussed with staff. The pt is compliant with medications and reports no side-effects. Symptoms are improving but needs more time to stabilize and to avoid relapse. Pt attends groups and activities. Support given, psycho-education provided. After care discussed. Medication Change: Yes (detox changes daily) Medical Record Reviewed: Yes Mental Status Examination - Cognitive Function Orientation: Person, Place, Situation, Time Memory: Intact Attention: WNL Concentration: Poor Association: WNL Fund of Knowledge: WNL - Mood Mood: Anxious - Affect Affect: Constricted - Speech Speech: Appropriate - Formal Thought Process Formal Thought Process: No Impairment - Suicidal Ideation Suicidal Ideation: No - Homicidal Ideation Homicidal Ideation: No Goal/Treatment Plan - Goal/Treatment Plan Need for Continued Stay: Remain at risks for inpatient hospitalization, Discharge may exacerbated symptoms, Severe functional impairment Progress Toward Problem(s) and Goals/Treatment Plan: Continue medications Support and psychoeducation daily Attend groups and activities daily Individual therapy After care planning by counselors Estimated Date of D/C: 09/01/18
--- NOTE | 2018-08-30 12:44 | CARD ---
APPROVED REPORT Date of service: 08/27/2018 EKG Measurement Heart [id number] <Conclusion> Normal sinus rhythm Normal ECG
[2018-08-30] MEDS ORDERED: Albuterol-Ipratrop 3 mg / 0.5 (3 ml) UD INH PRN (21:36)
[2018-08-31] MEDS: Albuterol HFA 90 mcg/actuation (8 g) INH PRN (01:22)
[2018-08-31] MEDS: guaiFENesin 600 mg ER Tab PO SCH (10:15)
[2018-08-31] MEDS: Multiple Vitamins Tab PO SCH (10:15)
--- NOTE | 2018-08-31 10:20 | PCM.PYCHDC ---
Mental Status Examination - Mental Status Examination Orientation: Person Discharge Summary - Discharge Note Consultations:: List each consultation separately and include: 1. Reason for request. 2. Findings. 3. Follow-up Summary of Hospital Course include:: 1. Description of specific treatment plan utilized for patients during their course of treatmen. 2. Summarize the time- course for resolution of acute symptoms and/or regressed behaviors. 3. Describe issues identified and worked on during hospitalization. 4. Describe medication utilized. 5. Describe medical problems identified and treated. 6. Reassessment of suicide risk Summary of Hospital Course: He will go to [facility]. Pt started t o withdraw on Thursday night and converted to INPAT from OBS on Thursday but the order was inadvertently entered late, on Thursday. Chisel Worker discussed with admin and CM and corrected the order and started it as of 08/28 - Diagnosis (1) Alcohol dependence Status: Acute - Final Diagnosis (DSM 5) Condition upon Discharge: IMPROVED Disposition: HOME/ ROUTINE Follow-up Treatment Plan: Continue medications Support and psychoeducation daily Attend groups and activities daily Individual therapy After care planning by counselors Prescriptions/Medication Reconciliation: Albuterol HFA [Ventolin HFA 90 mcg/actuation (8 g)] 1 puff INH RQ4 PRN #1 inhaler PRN Reason: Wheezing Gabapentin [Neurontin] 300 mg PO BID #60 cap Multivitamins [Hexavitamin] 1 tab PO DAILY #30 tab Nicotine 21 mg/24 hr [Nicoderm Cq] 1 patch TD DAILY #30 patch traZODone [Desyrel] 50 mg PO HS PRN #30 tab PRN Reason: Insomnia
[2018-08-31 10:43] VITALS: BP 108/81; PULSE 83; TEMP 97.6; O2SAT 94
--- NOTE | 2018-09-01 05:04 | CP.PCM.PCO ---
Physician Communication Note - Physician Communication Note Physician Communication Note: see above
== END 2018-08-31 11:17 | disposition home or self-care (01) | DRG 750 ==
LOC: C.ER 13:43 → UNDOADMOB 17:38 → C.7D 17:38 → UNDOADMOB 08-28 07:49 → C.7D 08-28 07:49 → OBSVTOIN 08-28 07:49 → INTOOBSV 08-29 07:49 → UNDODISIN 08-31 11:17
PROVIDERS: ADMIT Psychiatry & Neurology Psychiatry; ATTEND Psychiatry & Neurology Psychiatry
PROC: HZ2ZZZZ Detoxification Services for Substance Abuse Treatment (ICD-10-PCS; principal; 2018-08-28)
PROC: HZ52ZZZ Individual Psychotherapy for Substance Abuse Treatment, Cognitive-Behavioral (ICD-10-PCS; 2018-08-28)
PROC: HZ59ZZZ Individual Psychotherapy for Substance Abuse Treatment, Supportive (ICD-10-PCS; 2018-08-28)
PROC: HZ56ZZZ Individual Psychotherapy for Substance Abuse Treatment, Psychoeducation (ICD-10-PCS; 2018-08-28)
PROC: HZ42ZZZ Group Counseling for Substance Abuse Treatment, Cognitive-Behavioral (ICD-10-PCS; 2018-08-28)
PROC: HZ46ZZZ Group Counseling for Substance Abuse Treatment, Psychoeducation (ICD-10-PCS; 2018-08-28)
DX: F10.230 Alcohol dependence with withdrawal, uncomplicated (principal); J44.9 Chronic obstructive pulmonary disease, unspecified; Y90.9 Presence of alcohol in blood, level not specified; G47.00 Insomnia, unspecified; F17.210 Nicotine dependence, cigarettes, uncomplicated

== ENCOUNTER 2018-09-05 12:38 | Observation (INO) | payer OTHER ==
[2018-09-05 12:45] VITALS: BMI 18.8
[2018-09-05] MEDS ORDERED: Albuterol-Ipratrop 3 mg / 0.5 (3 ml) UD INH SCH ×2 (12:45)
[2018-09-05] MEDS ORDERED: Magnesium Sulfate 1 gm in D5W 1 GM/100 ML BAG IVPB ONE ×2 (12:45→13:01)
[2018-09-05] MEDS ORDERED: Albuterol-Ipratrop 3 mg / 0.5 (3 ml) UD INH STA ×2 (12:45→13:39)
[2018-09-05] MEDS ORDERED: Albuterol-Ipratrop 3 mg / 0.5 (3 ml) UD ONE (12:48)
[2018-09-05 13:01] LABS: BASO # 0.1 K/uL (0.0-0.2); BASO % 1.5 % (0.0-2.0); EOS % 12.5 % (0.0-4.0); HEMOGLOBIN 16.1 g/dL (12.0-18.0); LYMPH # 2.6 K/uL (1.0-4.3); LYMPH % 31.2 % (20.0-40.0); MEAN CELL VOLUME 104.7 fL (80.0-94.0); MEAN CORPUSCULAR HEMOGLOBIN 35.5 pg (27.0-31.0); MEAN CORPUSCULAR HGB CONC 33.9 g/dL (33.0-37.0); MEAN PLATELET VOLUME 10.8 fL (7.2-11.7); MONO # 1.3 K/uL (0.0-0.8); MONO % 15.1 % (0.0-10.0); NEUT # 3.3 K/uL (1.8-7.0); NEUT % 39.7 % (50.0-75.0); NRBC % 0.1 % (0.0-2.0); RBC 4.54 Mil/uL (4.40-5.90); RED CELL DISTRIBUTION WIDTH 13.8 % (11.5-14.5)
[2018-09-05 13:03] LABS: WHITE BLOOD COUNT 8.4 K/uL (4.8-10.8)
[2018-09-05] MEDS ORDERED: Albuterol-Ipratrop 3 mg / 0.5 (3 ml) UD INH PRN (13:10)
[2018-09-05 13:19] LABS: ALB/GLOB RATIO 1.7 (1.0-2.1); ALBUMIN 5.2 g/dL (3.5-5.0); ALT/SGPT 383 U/L (21-72); AST/SGOT 195 U/L (17-59); BLOOD UREA NITROGEN 11 mg/dL (9-20); CALCIUM 9.6 mg/dl (8.6-10.4); GFR NON-AFRICAN AMERICAN > 60
[2018-09-05] MEDS ORDERED: Azithromycin 500 MG in Sodium Chloride 0.9% 250 ML IV STA (13:38)
--- NOTE | 2018-09-05 13:38 | C.PDOC ---
History Of Present Illness 53 year old male with PMHx of COPD and alcohol abuse presents to the ED for shortness of breath. Pt was admitted from August 27-2018 for detox from alcohol. Pt was treated for COPD exacerbation on August 11, 2018. Pt admits to drinking 3 shots of alcohol and smoking cigarettes today. Denies any chest pain, fever, chills, n/v/d, abdominal pain, or any other symptoms. Time Seen by Provider: 09/05/18 12:44 Chief Complaint (Nursing): Respiratory Distress History Per: Patient, EMS History/Exam Limitations: no limitations Onset/Duration Of Symptoms: Hrs Current Symptoms Are (Timing): Still Present Past Medical History Reviewed: Historical Data, Nursing Documentation, Vital Signs Vital Signs: Last Vital Signs Temp 97.7 F 09/05/18 12:42 Pulse 75 09/05/18 13:30 Resp 22 09/05/18 13:30 BP 146/89 09/05/18 13:30 Pulse Ox 100 09/05/18 13:30 Primary Care Provider: FAMILY PROVIDER,NO - Medical History PMH: Anxiety, Asthma, COPD, Depression, HTN Denies: Diabetes, Hepatitis, HIV, Chronic Kidney Disease, Seizures, Sexually Transmitted Disease Other Surgeries: hx of surgeries - [facility] Procedures DETOXIFICATION SERVICES FOR SUBSTANCE ABUSE TREATMENT (08/28/18) GROUP COPY CENTER SPECIALIST FOR SUBSTANCE ABUSE TREATMENT, PSYCHOEDUCATION (08/28/18) GROUP COPY CENTER SPECIALIST FOR SUBSTANCE ABUSE, COGNITIVE BEHAVIORAL (08/28/18) INDIV PSYCHOTHERAPY FOR SUBSTANCE ABUSE TREATMENT, SUPPORT (08/28/18) INDIV PSYCHOTHERAPY FOR SUBSTANCE ABUSE, COGNITIV BEHAVIORAL (08/28/18) INDIV PSYCHOTHERAPY FOR SUBSTANCE ABUSE, PSYCHOEDUCATION (08/28/18) MEDS MGMT FOR SUBSTANCE ABUSE TREATMENT, NICOTINE REPLACE (04/05/18) Family History: States: No Known Family Hx - Social History Hx Tobacco Use: Yes Hx Alcohol Use: Yes (30 plus years) Hx Substance Use: Yes - Immunization History Hx Tetanus Toxoid Vaccination: Yes Hx Influenza Vaccination: Yes Hx Pneumococcal Vaccination: Yes Review Of Systems Constitutional: Negative for: Fever, Chills Cardiovascular: Negative for: Chest Pain, Palpitations, Light Headedness Respiratory: Positive for: Shortness of Breath. Negative for: Cough Gastrointestinal: Negative for: Nausea, Vomiting, Abdominal Pain, Diarrhea Neurological: Negative for: Headache Physical Exam - Physical Exam Appears: Non-toxic, No Acute Distress, Other (thin male ) Skin: Warm, Dry, No Rash Head: Normacephalic Eye(s): bilateral: Normal Inspection, PERRL, EOMI Nose: Normal Oral Mucosa: Moist Neck: Supple Chest: Symmetrical Cardiovascular: Rhythm Regular Respiratory: No Rales, No Rhonchi, No Wheezing, Other (poor respiratory effort) Gastrointestinal/Abdominal: Soft, No Tenderness Neurological/Psych: Oriented x3, Normal Speech Gait: Steady ED Course And Treatment - Laboratory Results Result Diagrams: 09/05/18 12:57 09/05/18 12:57 Lab Results: Troponin I < 0.0120 ng/mL (0.00-0.120) 09/05/18 12:57 Total Bilirubin 0.9 mg/dL (0.2-1.3) 09/05/18 12:57 AST 195 U/L (17-59) H 09/05/18 12:57 ALT 383 U/L (21-72) H D 09/05/18 12:57 Alkaline Phosphatase 85 U/L (38-126) 09/05/18 12:57 Total Protein 8.4 g/dL (6.3-8.3) H 09/05/18 12:57 Albumin 5.2 g/dL (3.5-5.0) H 09/05/18 12:57 Globulin 3.2 gm/dL (2.2-3.9) 09/05/18 12:57 Albumin/Globulin Ratio 1.7 (1.0-2.1) 09/05/18 12:57 Lab Interpretation: Abnormal (ETOH 72) ECG: Interpreted By Ia ECG Rhythm: Sinus Rhythm ECG Interpretation: Normal Rate From EC O2 Sat by Pulse Oximetry: 100 (RA) Pulse Ox Interpretation: Normal - Radiology CXR: Interpreted by Ia CXR Interpretation: Yes: Infiltrates (? RLL) Reevaluation Time: 13:35 Reassessment Condition: Improved - Physician Consult Information Outcome Of Conversation: 1330 d/w Dr. Denny barrett- prior adm, ok to tele obs Critical Care Time - Critical Care Note Total Time (in mins): 90 Documented critical care: time excludes all time spent performing seperately billable procedures. Medical Decision Making Medical Decision Making: copd exacerbation nebs/steroids ? RLL PNA Rocephin/Azithro Alcohol abuse CIWA Cigarette abuse nicotine patch Disposition Doctor Will See Patient In The: Hospital Counseled Patient/Family Regarding: Studies Performed, Diagnosis - Disposition Disposition: HOSPITALIZED Disposition Time: 13:39 Condition: FAIR - Clinical Impression Clinical Impression: Alcohol dependence, COPD exacerbation - Scribe Statement The provider has reviewed the documentation as recorded by the Scribe Kirti Bernardo All medical record entries made by the Romeoibconstantine were at my direction and personally dictated by me. I have reviewed the chart and agree that the record accurately reflects my personal performance of the history, physical exam, m edical decision making, and the department course for this patient. I have also personally directed, reviewed, and agree with the discharge instructions and disposition.
[2018-09-05] MEDS: cefTRIAXone IV 1 gm in Dextros 1 GM in Dextrose 5% In Water 50 ML IVPB SCH ×2 (13:57→14:00)
[2018-09-05] MEDS: cefTRIAXone IV 1 gm in Dextros 50 ML IVPB SCH (14:00)
[2018-09-05] MEDS ORDERED: Azithromycin 500 MG in Sodium Chloride 0.9% 250 ML IV ONE (14:15)
--- NOTE | 2018-09-05 15:30 | CP.PCM.HP ---
Past Patient History - Infectious Disease Hx of Infectious Diseases: None - Past Medical History & Family History Past Medical History?: Yes - Past Social History Smoking Status: Light Smoker < 10 Cigarettes Daily - CARDIAC Hx Hypertension: Yes - PULMONARY Hx Asthma: Yes Hx Chronic Obstructive Pulmonary Disease (COPD): Yes - NEUROLOGICAL Hx Seizures: No - HEENT Hx HEENT Problems: No - RENAL Hx Chronic Kidney Disease: No - ENDOCRINE/METABOLIC Hx Endocrine Disorders: No - HEMATOLOGICAL/ONCOLOGICAL Hx Human Immunodeficiency Virus (HIV): No - INTEGUMENTARY Hx Dermatological Problems: No - MUSCULOSKELETAL/RHEUMATOLOGICAL Hx Musculoskeletal Disorders: Yes Hx Falls: Yes (etoh related falls.) - GASTROINTESTINAL Hx Gastrointestinal Disorders: No - GENITOURINARY/GYNECOLOGICAL Hx Sexually Transmitted Disorders: No - PSYCHIATRIC Hx Anxiety: Yes Hx Depression: Yes Hx Substance Use: Yes - SURGICAL HISTORY Hx Surgeries: Yes Other/Comment: "skull cracked" - ANESTHESIA Hx Anesthesia: Yes Hx Anesthesia Reactions: No Hx Malignant Hyperthermia: No Meds Allergies/Adverse Reactions: Allergies Allergy/AdvReac Type Severity Reaction Status Date / Time No Known Allergies Allergy Verified 09/05/18 12:45 Physical Exam - Constitutional Appears: Well - Head Exam Head Exam: ATRAUMATIC, NORMAL INSPECTION, NORMOCEPHALIC - Eye Exam Eye Exam: EOMI, Normal appearance, PERRL Pupil Exam: NORMAL ACCOMODATION, PERRL - ENT Exam ENT Exam: Mucous Membranes Moist, Normal Exam - Neck Exam Neck exam: Positive for: Normal Inspection - Respiratory Exam Respiratory Exam: Decreased Breath Sounds - Cardiovascular Exam Cardiovascular Exam: REGULAR RHYTHM, +S1, +S2 - GI/Abdominal Exam GI & Abdominal Exam: Diminished Bowel Sounds, Soft - Rectal Exam Rectal Exam: Deferred - Neurological Exam Neurological exam: Oriented x3 Results - Vital Signs Recent Vital Signs: Last Vital Signs Temp 97.7 F 09/05/18 12:42 Pulse 80 09/05/18 15:10 Resp 18 09/05/18 15:10 BP 118/63 09/05/18 15:10 Pulse Ox 100 09/05/18 15:26 - Labs Result Diagrams: 09/05/18 12:57 09/05/18 12:57 Labs: Laboratory Results - last 24 hr 09/05/18 09/05/18 12:57 12:57 WBC 8.4 D RBC 4.54 Hgb 16.1 Hct 47.6 MCV 104.7 H MCH 35.5 H MCHC 33.9 RDW 13.8 Plt Count 168 MPV 10.8 Neut % (Auto) 39.7 L Lymph % (Auto) 31.2 [place] % (Auto) 15.1 H Eos % (Auto) 12.5 H Baso % (Auto) 1.5 Neut # (Auto) 3.3 Lymph # (Auto) 2.6 [place] # (Auto) 1.3 H Eos # (Auto) 1.0 H Baso # (Auto) 0.1 Sodium 145 Potassium 4.0 Chloride 102 Carbon Dioxide 30 Anion Gap 17 BUN 11 Creatinine 0.7 L Est GFR ( Amer) > 60 Est GFR (Non-Af Amer) > 60 Random Glucose 80 D Calcium 9.6 Total Bilirubin 0.9 AST 195 H ALT 383 H D Alkaline Phosphatase 85 Troponin I < 0.0120 Total Protein 8.4 H Albumin 5.2 H Globulin 3.2 Albumin/Globulin Ratio 1.7 Alcohol, Quantitative 72 H
--- NOTE | 2018-09-05 16:13 | RAD ---
Date of service: 09/05/2018 HISTORY: SOB COMPARISON: None available. Atelectasis and or scarring. TECHNIQUE: 1 view obtained. FINDINGS: LUNGS: Hyperinflation consistent with underlying COPD. Mild bibasilar PLEURA: No significant pleural effusion identified, no pneumothorax apparent. CARDIOVASCULAR: No aortic atherosclerotic calcification present. Normal cardiac size. No pulmonary vascular congestion. OSSEOUS STRUCTURES: No significant abnormalities. VISUALIZED UPPER ABDOMEN: Tiny sliver like lucency beneath the left hemidiaphragm. Possibility of a small amount of free intraperitoneal air cannot be excluded. Clinical correlation recommended. OTHER FINDINGS: None. IMPRESSION: Hyperinflation consistent with COPD. There is a tiny sliver like lucency beneath the left hemidiaphragm. Possibility of a small amount of free intraperitoneal air cannot be excluded. Clinical correlation recommended.. Findings discussed with Dr. Salazar at approximately 4 p.m. with written down and read back verification.
[2018-09-05] MEDS ORDERED: Sodium Chloride 0.9% 1,000 ML IV SCH (18:00)
--- NOTE | 2018-09-05 18:20 | CP.PCM.CON ---
<Milton Morataya - Last Filed: 09/05/18 18:13> History of Present Illness - History of Present Illness History of Present Illness: Surgery: Reason for consult: CXR findings suggestive of possible free intraperitoneal air HPI: Patient is a 53 y.o male w/ pmhx of ETOH abuse and COPD presents complaining of SOB that started about 48 hr prior to presentation. He states he has noticed worsening in his COPD symptoms since the start of allergy season but the past 2 nights he has been using his MD inhaler constantly without much relief. He says last night he was finally able to use a nebulizer treatment which gave some relief however he woke up today with significant difficulty janessa thing which prompted ED visit. He reports active tobacco use and ETOH use. He denies chest pain, abdominal pain, n/v/f/c. Normal bowel function and tolerating regular diet at home. He denies reflux or gastritis symptoms. PMH: ETOH abuse, COPD, HLD PSH: denies Social: 25packyear smoking history, denies drug use, drinks half a pint/day which is decreased from a pint per day for the past 25 years Fam: noncontributory Review of Systems - Review of Systems All systems: reviewed and no additional remarkable complaints except - Constitutional Constitutional: absent: Anorexia, Chills, Fever - EENT Eyes: absent: Blurred Vision, Change in Vision Ears: absent: Dizziness Nose/Mouth/Throat: absent: Nasal Congestion, Bleeding Gums - Cardiovascular Cardiovascular: Dyspnea, Dyspnea on Exertion. absent: Chest Pain, Chest Pain with Activity, Edema, Leg Edema - Respiratory Respiratory: Cough, Dyspnea, Wheezing, Chest Congestion. absent: Hemoptysis - Gastrointestinal Gastrointestinal: absent: Abdominal Pain, Belching, Bloating, Constipation, Cramping, Diarrhea, Dysphagia, Heartburn, Hematemesis, Hematochezia, Nausea, Vomiting - Genitourinary Genitourinary: absent: Hematuria, Pyuria - Integumentary Integumentary: absent: Lesions, Rash - Neurological Neurological: Tremor. absent: Syncope - Psychiatric Psychiatric: absent: Behavioral Changes, Confusion - Endocrine Endocrine: absent: Polydipsia, Polyphagia - Hematologic/Lymphatic Hematologic: absent: Easy Bleeding, Easy Bruising Past Patient History - Infectious Disease Hx of Infectious Diseases: None - Past Medical History & Family History Past Medical History?: Yes - Past Social History Smoking Status: Light Smoker < 10 Cigarettes Daily - CARDIAC Hx Hypertension: Yes - PULMONARY Hx Asthma: Yes Hx Chronic Obstructive Pulmonary Disease (COPD): Yes - NEUROLOGICAL Hx Seizures: No - HEENT Hx HEENT Problems: No - RENAL Hx Chronic Kidney Disease: No - ENDOCRINE/METABOLIC Hx Endocrine Disorders: No - HEMATOLOGICAL/ONCOLOGICAL Hx Human Immunodeficiency Virus (HIV): No - INTEGUMENTARY Hx Dermatological Problems: No - MUSCULOSKELETAL/RHEUMATOLOGICAL Hx Musculoskeletal Disorders: Yes Hx Falls: Yes (etoh related falls.) - GASTROINTESTINAL Hx Gastrointestinal Disorders: No - GENITOURINARY/GYNECOLOGICAL Hx Sexually Transmitted Disorders: No - PSYCHIATRIC Hx Anxiety: Yes Hx Depression: Yes Hx Substance Use: Yes - SURGICAL HISTORY Hx Surgeries: Yes Other/Comment: "skull cracked" - ANESTHESIA Hx Anesthesia: Yes Hx Anesthesia Reactions: No Hx Malignant Hyperthermia: No Meds Allergies/Adverse Reactions: Allergies Allergy/AdvReac Type Severity Reaction Status Date / Time No Known Allergies Allergy Verified 09/05/18 12:45 - Medications Medications: Current Medications Ceftriaxone Sodium (Rocephin Iv 1 Gm Duplex) 50 mls @ 50 mls/30 min IVPB Q12H [facility]; Protocol Last Admin: 09/05/18 14:00 Dose: 50 mls/30 min Sodium Chloride (Sodium Chloride 0.9%) 1,000 mls @ 75 mls/hr IV .[id number] [facility] Nicotine (Nicoderm Cq) 1 patch TD DAILY [facility] Physical Exam - Constitutional Appears: Non-toxic, No Acute Distress, Chronically Ill - Head Exam Head Exam: ATRAUMATIC, NORMOCEPHALIC - Eye Exam Eye Exam: EOMI, Normal appearance - ENT Exam ENT Exam: Mucous Membranes Moist - Respiratory Exam Respiratory Exam: Accessory Muscle Use, Wheezes, NORMAL BREATHING PATTERN - Cardiovascular Exam Cardiovascular Exam: REGULAR RHYTHM. absent: Tachycardia - GI/Abdominal Exam GI & Abdominal Exam: Soft. absent: Distended, Guarding, Hernia, Rebound, Rigid, Tenderness - Extremities Exam Extremities exam: Positive for: normal inspection. Negative for: calf tenderness - Neurological Exam Neurological exam: Alert, Oriented x3 - Psychiatric Exam Psychiatric exam: Normal Affect, Normal Mood - Skin Skin Exam: Dry, Normal Color, Warm Results - Vital Signs Recent Vital Signs: Last Vital Signs Temp 97.7 F 09/05/18 12:42 Pulse 80 09/05/18 15:10 Resp 18 05/12/19 15:10 BP 118/63 09/05/18 15:10 Pulse Ox 100 09/05/18 15:32 - Labs Result Diagrams: 09/05/18 12:57 09/05/18 12:57 Labs: Laboratory Results - last 24 hr 09/05/18 09/05/18 12:57 12:57 WBC 8.4 D RBC 4.54 Hgb 16.1 Hct 47.6 MCV 104.7 H MCH 35.5 H MCHC 33.9 RDW 13.8 Plt Count 168 MPV 10.8 Neut % (Auto) 39.7 L Lymph % (Auto) 31.2 [place] % (Auto) 15.1 H Eos % (Auto) 12.5 H Baso % (Auto) 1.5 Neut # (Auto) 3.3 Lymph # (Auto) 2.6 [place] # (Auto) 1.3 H Eos # (Auto) 1.0 H Baso # (Auto) 0.1 Sodium 145 Potassium 4.0 Chloride 102 Carbon Dioxide 30 Anion Gap 17 BUN 11 Creatinine 0.7 L Est GFR ( Amer) > 60 Est GFR (Non-Af Amer) > 60 Random Glucose 80 D Calcium 9.6 Total Bilirubin 0.9 AST 195 H ALT 383 H D Alkaline Phosphatase 85 Troponin I < 0.0120 Total Protein 8.4 H Albumin 5.2 H Globulin 3.2 Albumin/Globulin Ratio 1.7 Alcohol, Quantitative 72 H Assessment & Plan - Assessment and Plan (Free Text) Assessment: 53 y/o male w/ acute on chronic COPD exacerbation w/ CXR findings of possible intraperitoneal air Plan: -clinically patient abdominal exam benign, nonperitoneal -could be 2/2 to COPD exacerbation -will obtain CT abd/pelvis with gastrogaffin contrast to r/o perforation -NPO -IVF hydration -ETOH abuse hx, CIWA monitor for w/d -IV protoix -d/w Dr. Rivero, further surgical recs pending CT scan findings AKWhite PGY4 <Fidel Rivero - Last Filed: 09/06/18 08:13> Meds - Medications Medications: Current Medications Albuterol/Ipratropium (Duoneb 3 Mg/0.5 Mg (3 Ml) Ud) 3 ml INH RQ4 [facility] Last Admin: 09/06/18 03:01 Dose: 3 ml Ceftriaxone Sodium (Rocephin Iv 1 Gm Duplex) 50 mls @ 50 mls/30 min IVPB Q12H [facility]; Protocol Last Admin: 09/06/18 02:34 Dose: 50 mls/30 min Azithromycin 500 mg/ Sodium (Chloride) 250 mls @ 250 mls/hr IVPB DAILY [facility]; Protocol Folic Acid 1 mg/ Thiamine HCl 100 mg/ Multivitamins/Vitamin C 10 ml/ Dextrose 1,011.2 mls @ 75 mls/hr IV Q24H [facility] Last Admin: 09/05/18 19:30 Dose: 75 mls/hr Methylprednisolone (Solu-Medrol) 40 mg IVP DAILY@1800 [facility] Nicotine (Nicoderm Cq) 1 patch TD DAILY [facility] Senna/Docusate Sodium (Senokot S 50 Mg-8.6 Mg) 1 tab PO BID [facility] Results - Vital Signs Recent Vital Signs: Last Vital Signs Temp 98.0 F 09/06/18 07:54 Pulse 70 09/06/18 07:54 Resp 20 09/06/18 07:54 BP 125/73 09/06/18 07:54 Pulse Ox 94 L 09/06/18 07:54 - Labs Result Diagrams: 09/05/18 12:57 09/05/18 12:57 Labs: Laboratory Results - last 24 hr 09/05/18 09/05/18 09/06/18 12:57 12:57 00:34 WBC 8.4 D RBC 4.54 Hgb 16.1 Hct 47.6 MCV 104.7 H MCH 35.5 H MCHC 33.9 RDW 13.8 Plt Count 168 MPV 10.8 Neut % (Auto) 39.7 L Lymph % (Auto) 31.2 [place] % (Auto) 15.1 H Eos % (Auto) 12.5 H Baso % (Auto) 1.5 Neut # (Auto) 3.3 Lymph # (Auto) 2.6 [place] # (Auto) 1.3 H Eos # (Auto) 1.0 H Baso # (Auto) 0.1 Sodium 145 Potassium 4.0 Chloride 102 Carbon Dioxide 30 Anion Gap 17 BUN 11 Creatinine 0.7 L Est GFR ( Amer) > 60 Est GFR (Non-Af Amer) > 60 Random Glucose 80 D Calcium 9.6 Total Bilirubin 0.9 AST 195 H ALT 383 H D Alkaline Phosphatase 85 Troponin I < 0.0120 Total Protein 8.4 H Albumin 5.2 H Globulin 3.2 Albumin/Globulin Ratio 1.7 Urine Color Urine Clarity Urine pH Ur Specific [place] Urine Protein Urine Glucose (UA) Urine Ketones Urine Blood Urine Nitrate Urine Bilirubin Urine Urobilinogen Ur Leukocyte Esterase Urine WBC (Auto) Ur Squamous Epith Cells Urine Opiates Screen Negative Urine Methadone Screen Negative Ur Barbiturates Screen Negative Ur Phencyclidine Scrn Negative Ur Amphetamines Screen Negative U Benzodiazepines Scrn Negative U Oth Cocaine Metabols Negative U Cannabinoids Screen Negative Alcohol, Quantitative 72 H 09/06/18 00:34 WBC RBC Hgb Hct MCV MCH MCHC RDW Plt Count MPV Neut % (Auto) Lymph % (Auto) [place] % (Auto) Eos % (Auto) Baso % (Auto) Neut # (Auto) Lymph # (Auto) [place] # (Auto) Eos # (Auto) Baso # (Auto) Sodium Potassium Chloride Carbon Dioxide Anion Gap BUN Creatinine Est GFR ( Amer) Est GFR (Non-Af Amer) Random Glucose Calcium Total Bilirubin AST ALT Alkaline Phosphatase Troponin I Total Protein Albumin Globulin Albumin/Globulin Ratio Urine Color Yellow Urine Clarity Clear Urine pH 8.0 Ur Specific [place] 1.017 Urine Protein Negative Urine Glucose (UA) 3+ H Urine Ketones Negative Urine Blood Negative Urine Nitrate Negative Urine Bilirubin Negative Urine Urobilinogen 4.0 Ur Leukocyte Esterase Neg Urine WBC (Auto) < 1 Ur Squamous Epith Cells < 1 Urine Opiates Screen Urine Methadone Screen Ur Barbiturates Screen Ur Phencyclidine Scrn Ur Amphetamines Screen U Benzodiazepines Scrn U Oth Cocaine Metabols U Cannabinoids Screen Alcohol, Quantitative Attending/Attestation - Attestation I have fully participated in the care of the patient.: Yes I have reviewed all pertinent clinical information: Yes Notes (Text): Pt with COPD exacerbation and Xray findings of possible intraperitoneal air No abdominal pain Xray reviewed Get CT scan of A/P c.w current mx Plan d.w primary team in detail. .
[2018-09-05] MEDS ORDERED: Folic Acid 1 MG, Thiamine 100 MG, Multivitamin (MVI) 10 ML in Dextrose 5% In Water 1,00... IV SCH (18:30)
[2018-09-05] MEDS ORDERED: Iohexol 240 (50 ml) PO ONE (18:45)
[2018-09-05] MEDS: Albuterol-Ipratrop 3 mg / 0.5 (3 ml) UD INH SCH ×2 (19:25→23:20)
[2018-09-05] MEDS: Folic Acid 1 MG, Thiamine 100 MG, Multivitamin (MVI) 10 ML in Dextrose 5% In Water 1,00... IV SCH (19:30)
[2018-09-05 20:36] VITALS: RESP 20
[2018-09-05] MEDS ORDERED: Iodixanol 320 MG/ML 100 ML BOTTLE IV ONE (21:02)
[2018-09-06 00:44] LABS: SQUAMOUS EPITHIAL < 1 /hpf (0-5); URINE BILIRUBIN NEGATIVE (NEGATIVE); URINE BLOOD NEGATIVE (NEGATIVE); URINE CLARITY Clear (Clear); URINE COLOR Yellow (YELLOW); URINE GLUCOSE (UA) 3+ mg/dL (Normal); URINE LEUKOCYTE ESTERASE NEG Leu/uL (Negative); URINE PROTEIN NEGATIVE (NEGATIVE)
[2018-09-06 01:21] LABS: BARBITURATES, UR NEGATIVE (NEGATIVE); BENZODIAZEPINES, UR NEGATIVE (NEGATIVE); OPIATES, UR NEGATIVE (NEGATIVE); PHENCYCLIDINE, UR NEGATIVE (NEGATIVE)
[2018-09-06] MEDS: cefTRIAXone IV 1 gm in Dextros 50 ML IVPB SCH ×2 (02:34→13:13)
[2018-09-06] MEDS: Albuterol-Ipratrop 3 mg / 0.5 (3 ml) UD INH SCH ×5 (03:01→21:04)
--- NOTE | 2018-09-06 07:02 | CP.PCM.PN ---
<Trever Garcia - Last Filed: 09/06/18 08:00> Subjective - Date & Time of Evaluation Date of Evaluation: 09/06/18 Time of Evaluation: 06:59 - Subjective Subjective: Surgery Progress Note for Dr. Rivero 53M seen and evaluated at bedside this morning. No acute events overnight. Patient required 2 nebulizer treatments overnight and states he is breathing better this morning. continues to deny abdominal pain. Denies f/c, n/v/d, SOB, CP, or urinary symptoms. Objective - Vital Signs/Intake and Output Vital Signs (last 24 hours): Temp Pulse Resp BP Pulse Ox 98 F 80 20 131/74 94 L 09/06/18 04:30 09/06/18 04:30 09/06/18 04:30 09/06/18 04:30 09/06/18 03:15 - Medications Medications: Current Medications Albuterol/Ipratropium (Duoneb 3 Mg/0.5 Mg (3 Ml) Ud) 3 ml INH RQ4 [facility] Last Admin: 09/06/18 03:01 Dose: 3 ml Ceftriaxone Sodium (Rocephin Iv 1 Gm Duplex) 50 mls @ 50 mls/30 min IVPB Q12H [facility]; Protocol Last Admin: 09/06/18 02:34 Dose: 50 mls/30 min Azithromycin 500 mg/ Sodium (Chloride) 250 mls @ 250 mls/hr IVPB DAILY [facility]; Protocol Folic Acid 1 mg/ Thiamine HCl 100 mg/ Multivitamins/Vitamin C 10 ml/ Dextrose 1,011.2 mls @ 75 mls/hr IV Q24H [facility] Last Admin: 09/05/18 19:30 Dose: 75 mls/hr Methylprednisolone (Solu-Medrol) 40 mg IVP DAILY@1800 [facility] Nicotine (Nicoderm Cq) 1 patch TD DAILY [facility] Senna/Docusate Sodium (Senokot S 50 Mg-8.6 Mg) 1 tab PO BID [facility] - Labs Labs: 09/05/18 12:57 09/05/18 12:57 - Constitutional Appears: Well, Non-toxic, No Acute Distress - Head Exam Head Exam: ATRAUMATIC, NORMAL INSPECTION, NORMOCEPHALIC - Eye Exam Eye Exam: EOMI - ENT Exam ENT Exam: Mucous Membranes Moist - Respiratory Exam Respiratory Exam: NORMAL BREATHING PATTERN. absent: Wheezes, Respiratory Distress - Cardiovascular Exam Cardiovascular Exam: REGULAR RHYTHM, +S1, +S2. absent: Murmur - GI/Abdominal Exam GI & Abdominal Exam: Guarding, Rigid, Soft, Normal Bowel Sounds. absent: Distended, Tenderness, Rebound - Neurological Exam Neurological Exam: Alert, Awake, Oriented x3 - Psychiatric Exam Psychiatric exam: Normal Affect, Normal Mood - Skin Skin Exam: Dry, Intact, Normal Color, Warm Assessment and Plan - Assessment and Plan (Free Text) Assessment: 53M w/ suspicion of free air on CT, admitted for COPD exacerbation Plan: Monitor diet tolerance Monitor bowel function Pending CT scan official read IVF Mag citrate for constipation Medical management per primary team No acute surgical intervention indicated at this time D/w Dr. Mat Garcia PGY1 <Fidel Rivero - Last Filed: 09/06/18 08:15> Objective - Vital Signs/Intake and Output Vital Signs (last 24 hours): Temp Pulse Resp BP Pulse Ox 98.0 F 70 20 125/73 94 L 09/06/18 07:54 09/06/18 07:54 09/06/18 07:54 09/06/18 07:54 09/06/18 07:54 - Medications Medications: Current Medications Albuterol/Ipratropium (Duoneb 3 Mg/0.5 Mg (3 Ml) Ud) 3 ml INH RQ4 [facility] Last Admin: 09/06/18 03:01 Dose: 3 ml Ceftriaxone Sodium (Rocephin Iv 1 Gm Duplex) 50 mls @ 50 mls/30 min IVPB Q12H [facility]; Protocol Last Admin: 09/06/18 02:34 Dose: 50 mls/30 min Azithromycin 500 mg/ Sodium (Chloride) 250 mls @ 250 mls/hr IVPB DAILY [facility]; Protocol Folic Acid 1 mg/ Thiamine HCl 100 mg/ Multivitamins/Vitamin C 10 ml/ Dextrose 1,011.2 mls @ 75 mls/hr IV Q24H [facility] Last Admin: 09/05/18 19:30 Dose: 75 mls/hr Methylprednisolone (Solu-Medrol) 40 mg IVP DAILY@1800 [facility] Nicotine (Nicoderm Cq) 1 patch TD DAILY [facility] Senna/Docusate Sodium (Senokot S 50 Mg-8.6 Mg) 1 tab PO BID [facility] - Labs Labs: 09/05/18 12:57 09/05/18 12:57 Attending/Attestation - Attestation I have personally seen and examined this patient.: Yes I have fully participated in the care of the patient.: Yes I have reviewed all pertinent clinical information, including history, physical exam and plan: Yes Notes (Text): Pt was seen and examined at bedside Agree with above note and assessment CT scan is negative for intraperitoneal air Pt has no abdominal Pain Citroma and Colace for constipation c.w current mx No General surgical intervention required at present Plan d.w pt in detail.
[2018-09-06] MEDS ORDERED: Magnesium Citrate Oral SOL (300 ml) PO ONE (07:58)
--- NOTE | 2018-09-06 08:08 | CP.PCM.CON ---
<Blanca Carlisle - Last Filed: 09/06/18 08:59> History of Present Illness - History of Present Illness History of Present Illness: GI Fellow PGY5 Consult Note Patient is a 53 y.o male w/ pmhx of ETOH abuse, polypsubstance abuse, and COPD who presents complaining of SOB that started about two days prior to presentation. Pt was admitted from August 27-2018 for detox from alcohol. He has multiple admission with elevated etoh levels and many detox admissions. He reports active tobacco use and ETOH use. He reports increased etoh over the past 3 weeks due to social issues. He denies any hx of liver disease, or admission from liver complications. He denies prior EGD/colonoscopy. He denies fevers, chills, abdominal pain, n/v/f/c. Normal bowel function and tolerating regular diet at home. He denies reflux or gastritis symptoms. ROS: A 12pt ROS was negative except as above PMH: As stated in HPI PSH: denies Social: 25packyear smoking history, reports snorting cocaine when younger, drinks one pint of vodka/day which is increased from a 1/2pint per day for the past 25 years, no tattoos no IVDA Fam: Neg for GI cancer Past Patient History - Infectious Disease Hx of Infectious Diseases: None - Past Medical History & Family History Past Medical History?: Yes - Past Social History Smoking Status: Light Smoker < 10 Cigarettes Daily - CARDIAC Hx Hypertension: Yes - PULMONARY Hx Asthma: Yes Hx Chronic Obstructive Pulmonary Disease (COPD): Yes - NEUROLOGICAL Hx Seizures: No - HEENT Hx HEENT Problems: No - RENAL Hx Chronic Kidney Disease: No - ENDOCRINE/METABOLIC Hx Endocrine Disorders: No - HEMATOLOGICAL/ONCOLOGICAL Hx Human Immunodeficiency Virus (HIV): No - INTEGUMENTARY Hx Dermatological Problems: No - MUSCULOSKELETAL/RHEUMATOLOGICAL Hx Musculoskeletal Disorders: Yes Hx Falls: Yes (etoh related falls.) - GASTROINTESTINAL Hx Gastrointestinal Disorders: No - GENITOURINARY/GYNECOLOGICAL Hx Sexually Transmitted Disorders: No - PSYCHIATRIC Hx Anxiety: Yes Hx Depression: Yes Hx Substance Use: Yes - SURGICAL HISTORY Hx Surgeries: Yes Other/Comment: "skull cracked" - ANESTHESIA Hx Anesthesia: Yes Hx Anesthesia Reactions: No Hx Malignant Hyperthermia: No Meds Allergies/Adverse Reactions: Allergies Allergy/AdvReac Type Severity Reaction Status Date / Time No Known Allergies Allergy Verified 09/05/18 12:45 - Medications Medications: Current Medications Albuterol/Ipratropium (Duoneb 3 Mg/0.5 Mg (3 Ml) Ud) 3 ml INH RQ4 [facility] Last Admin: 09/06/18 03:01 Dose: 3 ml Ceftriaxone Sodium (Rocephin Iv 1 Gm Duplex) 50 mls @ 50 mls/30 min IVPB Q12H [facility]; Protocol Last Admin: 09/06/18 02:34 Dose: 50 mls/30 min Azithromycin 500 mg/ Sodium (Chloride) 250 mls @ 250 mls/hr IVPB DAILY [facility]; Protocol Folic Acid 1 mg/ Thiamine HCl 100 mg/ Multivitamins/Vitamin C 10 ml/ Dextrose 1,011.2 mls @ 75 mls/hr IV Q24H [facility] Last Admin: 09/05/18 19:30 Dose: 75 mls/hr Methylprednisolone (Solu-Medrol) 40 mg IVP DAILY@1800 [facility] Nicotine (Nicoderm Cq) 1 patch TD DAILY [facility] Senna/Docusate Sodium (Senokot S 50 Mg-8.6 Mg) 1 tab PO BID [facility] Physical Exam - Constitutional Appears: Non-toxic, No Acute Distress, Cachectic, Chronically Ill - Head Exam Head Exam: ATRAUMATIC, NORMAL INSPECTION, NORMOCEPHALIC - Eye Exam Eye Exam: EOMI, Normal appearance, PERRL Pupil Exam: PERRL - ENT Exam ENT Exam: Mucous Membranes Moist, Normal Exam - Neck Exam Neck exam: Positive for: Normal Inspection - Respiratory Exam Respiratory Exam: Wheezes, NORMAL BREATHING PATTERN - Cardiovascular Exam Cardiovascular Exam: REGULAR RHYTHM, RRR, +S1, +S2 - GI/Abdominal Exam GI & Abdominal Exam: Normal Bowel Sounds, Soft. absent: Distended, Firm, Organomegaly, Tenderness - Rectal Exam Rectal Exam: Deferred - Extremities Exam Extremities exam: Positive for: full ROM, normal inspection - Back Exam Back exam: FULL ROM, NORMAL INSPECTION - Neurological Exam Neurological exam: Alert, Oriented x3 - Psychiatric Exam Psychiatric exam: Normal Affect, Normal Mood - Skin Skin Exam: Dry, Intact, Normal Color, Warm Results - Vital Signs Recent Vital Signs: Last Vital Signs Temp 98.0 F 09/06/18 07:54 Pulse 70 09/06/18 07:54 Resp 20 09/06/18 07:54 BP 125/73 09/06/18 07:54 Pulse Ox 94 L 09/06/18 07:54 - Labs Result Diagrams: 09/05/18 12:57 09/05/18 12:57 Labs: Laboratory Results - last 24 hr 09/05/18 09/05/18 09/06/18 12:57 12:57 00:34 WBC 8.4 D RBC 4.54 Hgb 16.1 Hct 47.6 MCV 104.7 H MCH 35.5 H MCHC 33.9 RDW 13.8 Plt Count 168 MPV 10.8 Neut % (Auto) 39.7 L Lymph % (Auto) 31.2 [place] % (Auto) 15.1 H Eos % (Auto) 12.5 H Baso % (Auto) 1.5 Neut # (Auto) 3.3 Lymph # (Auto) 2.6 [place] # (Auto) 1.3 H Eos # (Auto) 1.0 H Baso # (Auto) 0.1 Sodium 145 Potassium 4.0 Chloride 102 Carbon Dioxide 30 Anion Gap 17 BUN 11 Creatinine 0.7 L Est GFR ( Amer) > 60 Est GFR (Non-Af Amer) > 60 Random Glucose 80 D Calcium 9.6 Total Bilirubin 0.9 AST 195 H ALT 383 H D Alkaline Phosphatase 85 Troponin I < 0.0120 Total Protein 8.4 H Albumin 5.2 H Globulin 3.2 Albumin/Globulin Ratio 1.7 Urine Color Urine Clarity Urine pH Ur Specific [place] Urine Protein Urine Glucose (UA) Urine Ketones Urine Blood Urine Nitrate Urine Bilirubin Urine Urobilinogen Ur Leukocyte Esterase Urine WBC (Auto) Ur Squamous Epith Cells Urine Opiates Screen Negative Urine Methadone Screen Negative Ur Barbiturates Screen Negative Ur Phencyclidine Scrn Negative Ur Amphetamines Screen Negative U Benzodiazepines Scrn Negative U Oth Cocaine Metabols Negative U Cannabinoids Screen Negative Alcohol, Quantitative 72 H 09/06/18 00:34 WBC RBC Hgb Hct MCV MCH MCHC RDW Plt Count MPV Neut % (Auto) Lymph % (Auto) [place] % (Auto) Eos % (Auto) Baso % (Auto) Neut # (Auto) Lymph # (Auto) [place] # (Auto) Eos # (Auto) Baso # (Auto) Sodium Potassium Chloride Carbon Dioxide Anion Gap BUN Creatinine Est GFR ( Amer) Est GFR (Non-Af Amer) Random Glucose Calcium Total Bilirubin AST ALT Alkaline Phosphatase Troponin I Total Protein Albumin Globulin Albumin/Globulin Ratio Urine Color Yellow Urine Clarity Clear Urine pH 8.0 Ur Specific [place] 1.017 Urine Protein Negative Urine Glucose (UA) 3+ H Urine Ketones Negative Urine Blood Negative Urine Nitrate Negative Urine Bilirubin Negative Urine Urobilinogen 4.0 Ur Leukocyte Esterase Neg Urine WBC (Auto) < 1 Ur Squamous Epith Cells < 1 Urine Opiates Screen Urine Methadone Screen Ur Barbiturates Screen Ur Phencyclidine Scrn Ur Amphetamines Screen U Benzodiazepines Scrn U Oth Cocaine Metabols U Cannabinoids Screen Alcohol, Quantitative Assessment & Plan - Assessment and Plan (Free Text) Assessment: 1. Elevated LFTs 2. Alcohol Abuse 3. Constipation Plan: -Elevated LFTs likely from alcohol abuse -Will order Abd US Doppler, evaluated portal vein -Autoimmune and hepatitis serologies ordered -Bowel regimen for constipation, surgery ordered mag citrate -CT imaging reviewed, no enteritis, + constipation, no cirrhosis -Alcohol cessation advised -Will continue to follow pt <Bear Thomas - Last Filed: 09/06/18 09:57> Meds - Medications Medications: Current Medications Albuterol/Ipratropium (Duoneb 3 Mg/0.5 Mg (3 Ml) Ud) 3 ml INH RQ4 [facility] Last Admin: 09/06/18 08:30 Dose: 3 ml Heparin Sodium (Porcine) (Heparin) 5,000 units SC Q12 [facility] Ceftriaxone Sodium (Rocephin Iv 1 Gm Duplex) 50 mls @ 50 mls/30 min IVPB Q12H [facility]; Protocol Last Admin: 09/06/18 02:34 Dose: 50 mls/30 min Azithromycin 500 mg/ Sodium (Chloride) 250 mls @ 250 mls/hr IVPB DAILY [facility]; Protocol Last Admin: 09/06/18 09:13 Dose: 250 mls/hr Folic Acid 1 mg/ Thiamine HCl 100 mg/ Multivitamins/Vitamin C 10 ml/ Dextrose 1,011.2 mls @ 75 mls/hr IV Q24H [facility] Last Admin: 09/05/18 19:30 Dose: 75 mls/hr Methylprednisolone (Solu-Medrol) 40 mg IVP DAILY@1800 [facility] Nicotine (Nicoderm Cq) 1 patch TD DAILY [facility] Last Admin: 09/06/18 09:19 Dose: 1 patch Senna/Docusate Sodium (Senokot S 50 Mg-8.6 Mg) 1 tab PO BID [facility] Last Admin: 09/06/18 09:24 Dose: Not Given Results - Vital Signs Recent Vital Signs: Last Vital Signs Temp 98.0 F 09/06/18 07:54 Pulse 70 09/06/18 07:54 Resp 20 09/06/18 07:54 BP 125/73 09/06/18 07:54 Pulse Ox 94 L 09/06/18 07:54 - Labs Result Diagrams: 09/05/18 12:57 09/05/18 12:57 Labs: Laboratory Results - last 24 hr 09/05/18 09/05/18 09/06/18 12:57 12:57 00:34 WBC 8.4 D RBC 4.54 Hgb 16.1 Hct 47.6 MCV 104.7 H MCH 35.5 H MCHC 33.9 RDW 13.8 Plt Count 168 MPV 10.8 Neut % (Auto) 39.7 L Lymph % (Auto) 31.2 [place] % (Auto) 15.1 H Eos % (Auto) 12.5 H Baso % (Auto) 1.5 Neut # (Auto) 3.3 Lymph # (Auto) 2.6 [place] # (Auto) 1.3 H Eos # (Auto) 1.0 H Baso # (Auto) 0.1 Sodium 145 Potassium 4.0 Chloride 102 Carbon Dioxide 30 Anion Gap 17 BUN 11 Creatinine 0.7 L Est GFR ( Amer) > 60 Est GFR (Non-Af Amer) > 60 Random Glucose 80 D Calcium 9.6 Total Bilirubin 0.9 AST 195 H ALT 383 H D Alkaline Phosphatase 85 Troponin I < 0.0120 Total Protein 8.4 H Albumin 5.2 H Globulin 3.2 Albumin/Globulin Ratio 1.7 Urine Color Urine Clarity Urine pH Ur Specific [place] Urine Protein Urine Glucose (UA) Urine Ketones Urine Blood Urine Nitrate Urine Bilirubin Urine Urobilinogen Ur Leukocyte Esterase Urine WBC (Auto) Ur Squamous Epith Cells Urine Opiates Screen Negative Urine Methadone Screen Negative Ur Barbiturates Screen Negative Ur Phencyclidine Scrn Negative Ur Amphetamines Screen Negative U Benzodiazepines Scrn Negative U Oth Cocaine Metabols Negative U Cannabinoids Screen Negative Alcohol, Quantitative 72 H 09/06/18 00:34 WBC RBC Hgb Hct MCV MCH MCHC RDW Plt Count MPV Neut % (Auto) Lymph % (Auto) [place] % (Auto) Eos % (Auto) Baso % (Auto) Neut # (Auto) Lymph # (Auto) [place] # (Auto) Eos # (Auto) Baso # (Auto) Sodium Potassium Chloride Carbon Dioxide Anion Gap BUN Creatinine Est GFR ( Amer) Est GFR (Non-Af Amer) Random Glucose Calcium Total Bilirubin AST ALT Alkaline Phosphatase Troponin I Total Protein Albumin Globulin Albumin/Globulin Ratio Urine Color Yellow Urine Clarity Clear Urine pH 8.0 Ur Specific [place] 1.017 Urine Protein Negative Urine Glucose (UA) 3+ H Urine Ketones Negative Urine Blood Negative Urine Nitrate Negative Urine Bilirubin Negative Urine Urobilinogen 4.0 Ur Leukocyte Esterase Neg Urine WBC (Auto) < 1 Ur Squamous Epith Cells < 1 Urine Opiates Screen Urine Methadone Screen Ur Barbiturates Screen Ur Phencyclidine Scrn Ur Amphetamines Screen U Benzodiazepines Scrn U Oth Cocaine Metabols U Cannabinoids Screen Alcohol, Quantitative Attending/Attestation - Attestation I have personally seen and examined this patient.: Yes I have fully participated in the care of the patient.: Yes I have reviewed all pertinent clinical information: Yes Notes (Text): 09/06/18 09:54 I have seen and examined patient with GI fellow. Agree with above documentation with the following additions. In brief, this is a 53 year old male with history of ETOH abuse, COPD who presents to hospital with complaint of progressive dyspnea for the past two days, currently being treated for COPD exacerbation. GI called for evaluation of elevated LFTs. He is seen resting in bed comfortably and denies abdominal pain, nausea, vomiting, fever/chills, weight loss, jaundice, pruritis, or prior knowledge of liver disease. He does admit to ongoing ETOH abuse, seeking detox for treatment. No prior endoscopic evaluation. ETOH abuse COPD Transaminitis - Diet as tolerated - Obtain abdominal US - Obtain viral hepatitis and autoimmune panel testing - ETOH cessation counseling - Continue to monitor LFTs and avoid hepatotoxic therapies - Will continue to monitor patient clinical course
[2018-09-06] MEDS: Azithromycin 500 MG in Sodium Chloride 0.9% 250 ML IVPB SCH (09:13)
[2018-09-06] MEDS: Docusate-Senna 50 mg-8.6 mg Tab PO SCH ×3 (09:24→17:26)
--- NOTE | 2018-09-06 11:48 | CT ---
Date of service: 09/05/2018 CT chest, abdomen, and pelvis with IV contrast Indication: r/o perforation and r/o obstruction or mass Technique: Contiguous axial images of the chest, abdomen, and pelvis. Coronal and Sagittal reformats generated and reviewed. This CT exam was performed using 1 or more of the following dose reduction techniques: Automated exposure control, adjustment of the MAA and/or kV according to patient size, and/or use of iterative reconstruction technique. Contrast: 100 mL Visipaque 320 IV Radiation dose: Total exam DLP = 479.08 MGy-cm. Comparison: CT chest without contrast performed 08/01/14 Findings: Visualized portions of the inferior thyroid gland appear unremarkable. The mediastinal and hilar vascular structures appear within normal limits. The heart appears within normal limits of size. Emphysematous changes. Scattered fibronodular scarring. No focal consolidation. No pleural effusion. No pneumothorax. Hypoattenuation of the liver compatible with hepatic steatosis. Contracted gallbladder. The spleen, kidneys, pancreas, adrenal and adrenal glands appear unremarkable. The stomach is nondistended. The bowel loops appear within normal limits of caliber without evidence of intestinal obstruction. Moderate constipation. The appendix is not clearly identified. There is no definite free air. Prostate gland measures approximately 2.8 x 4.0 cm and contains coarse calcification. Within the right scrotum is an indeterminate hypodense structure measuring approximately 2.2 x 2.1 cm (series 6, image 183) with densely peripheral calcifications. Small bilateral fat vessel containing inguinal hernias. Degenerative changes of the spine. Impression: Indeterminate hypodense structure measuring approximately 2.2 x 2.1 cm with densely peripheral calcifications appears at the level the right scrotum. Recommend further evaluation with testicular ultrasound. Hypoattenuation of the liver compatible with hepatic steatosis. Small bilateral fat vessel containing inguinal hernias. Emphysematous changes. Scattered fibronodular scarring. Preliminary impression was provided by [employer]. Study marked for PA review.
[2018-09-06 12:03] LABS: HEPATITIS B SURFACE AG Negative (NEGATIVE)
[2018-09-06 12:07] LABS: HEPATITIS A IGM NEGATIVE (NEGATIVE); HEPATITIS B CORE AB NEGATIVE (NEGATIVE)
[2018-09-06 13:39] LABS: HEPATITIS C ANTIBODY REACTIVE (NEGATIVE)
--- NOTE | 2018-09-06 15:10 | US ---
HISTORY: elevated LFTS, PV patency? COMPARISON: CT of the chest, abdomen, and pelvis with IV contrast performed 09/05/18 TECHNIQUE: Sonographic evaluation of the abdomen. FINDINGS: LIVER: Measures 17.1 cm in sagittal dimension. Echogenic liver may be seen in setting of hepatic parenchymal disease or fatty infiltration. No focal hepatic mass identified. The main portal vein appears patent with normal directional flow. Intrahepatic inferior vena cava and left, middle, and right hepatic veins appear patent with normal hepatic venous waveforms. No intrahepatic bile duct dilatation. GALLBLADDER: No gallstones. No gallbladder wall thickening. Negative sonographic Jones's sign as assessed by the sales strategy manager. COMMON BILE DUCT: Measures 4 mm PANCREAS: Not well visualized. RIGHT KIDNEY: Measures 11.0 x 3.4 x 3.4 cm. No obstructing calculus or hydronephrosis identified. LEFT KIDNEY: Measures 11.2 x 4.9 x 4.1 cm. No obstructing calculus or hydronephrosis identified. SPLEEN: Measures approximately 8.0 cm. AORTA: Limited views appear unremarkable. IVC: Limited views appear unremarkable. OTHER FINDINGS: None. IMPRESSION: Hypoattenuation of the liver compatible with hepatic steatosis. Patent hepatic vasculature with appropriate directional flow.
[2018-09-06] MEDS: Folic Acid 1 MG, Thiamine 100 MG, Multivitamin (MVI) 10 ML in Dextrose 5% In Water 1,00... IV SCH (17:28)
--- NOTE | 2018-09-06 17:50 | CARD ---
APPROVED REPORT Date of service: 09/05/2018 EKG Measurement Heart [id number] <Conclusion> Normal sinus rhythm Possible Anterior infarct, age undetermined Abnormal ECG
[2018-09-06] MEDS ORDERED: MethylPREDNISolone 40 mg Vial IVP SCH (18:00)
--- NOTE | 2018-09-06 18:33 | CP.PCM.CON ---
History of Present Illness - History of Present Illness History of Present Illness: Reason for consultation: Shortness of breath 53-year-old male with history of COPD and long history of smoking, alcohol abuse admitted with shortness of breath and cough. Patient states that shortness of breath progressively got worse and did not respond to MD inhaler. Denies fever chills, denies chest pain. PMH: ETOH abuse, COPD, HLD PSH: denies Social: 25packyear smoking history, denies drug use, drinks half a pint/day whic h is decreased from a pint per day for the past 25 years Fam: noncontributory Review of Systems - Review of Systems All systems: reviewed and no additional remarkable complaints except (Shortness of breath and cough) Past Patient History - Infectious Disease Hx of Infectious Diseases: None - Past Medical History & Family History Past Medical History?: Yes - Past Social History Smoking Status: Light Smoker < 10 Cigarettes Daily - CARDIAC Hx Hypertension: Yes - PULMONARY Hx Asthma: Yes Hx Chronic Obstructive Pulmonary Disease (COPD): Yes - NEUROLOGICAL Hx Seizures: No - HEENT Hx HEENT Problems: No - RENAL Hx Chronic Kidney Disease: No - ENDOCRINE/METABOLIC Hx Endocrine Disorders: No - HEMATOLOGICAL/ONCOLOGICAL Hx Human Immunodeficiency Virus (HIV): No - INTEGUMENTARY Hx Dermatological Problems: No - MUSCULOSKELETAL/RHEUMATOLOGICAL Hx Musculoskeletal Disorders: Yes Hx Falls: Yes (etoh related falls.) - GASTROINTESTINAL Hx Gastrointestinal Disorders: No - GENITOURINARY/GYNECOLOGICAL Hx Sexually Transmitted Disorders: No - PSYCHIATRIC Hx Anxiety: Yes Hx Depression: Yes Hx Substance Use: Yes - SURGICAL HISTORY Hx Surgeries: Yes Other/Comment: "skull cracked" - ANESTHESIA Hx Anesthesia: Yes Hx Anesthesia Reactions: No Hx Malignant Hyperthermia: No Meds Allergies/Adverse Reactions: Allergies Allergy/AdvReac Type Severity Reaction Status Date / Time No Known Allergies Allergy Verified 09/05/18 12:45 - Medications Medications: Current Medications Albuterol/Ipratropium (Duoneb 3 Mg/0.5 Mg (3 Ml) Ud) 3 ml INH RQ4 [facility] Last Admin: 09/06/18 17:02 Dose: 3 ml Heparin Sodium (Porcine) (Heparin) 5,000 units SC Q12 [facility] Last Admin: 09/06/18 10:48 Dose: 5,000 units Ceftriaxone Sodium (Rocephin Iv 1 Gm Duplex) 50 mls @ 50 mls/30 min IVPB Q12H [facility]; Protocol Last Admin: 09/06/18 13:13 Dose: 50 mls/30 min Azithromycin 500 mg/ Sodium (Chloride) 250 mls @ 250 mls/hr IVPB DAILY [facility]; Protocol Last Admin: 09/06/18 09:13 Dose: 250 mls/hr Folic Acid 1 mg/ Thiamine HCl 100 mg/ Multivitamins/Vitamin C 10 ml/ Dextrose 1,011.2 mls @ 75 mls/hr IV Q24H [facility] Last Admin: 09/06/18 17:28 Dose: 75 mls/hr Methylprednisolone (Solu-Medrol) 40 mg IVP DAILY@1800 [facility] Last Admin: 09/06/18 17:26 Dose: 40 mg Nicotine (Nicoderm Cq) 1 patch TD DAILY [facility] Last Admin: 09/06/18 09:19 Dose: 1 patch Senna/Docusate Sodium (Senokot S 50 Mg-8.6 Mg) 1 tab PO BID [facility] Last Admin: 09/06/18 17:26 Dose: 1 tab Physical Exam - Head Exam Head Exam: ATRAUMATIC, NORMOCEPHALIC - ENT Exam ENT Exam: Mucous Membranes Moist - Neck Exam Neck exam: Positive for: Normal Inspection - Respiratory Exam Respiratory Exam: Rhonchi, Wheezes - Cardiovascular Exam Cardiovascular Exam: REGULAR RHYTHM - GI/Abdominal Exam GI & Abdominal Exam: Normal Bowel Sounds, Soft - Extremities Exam Extremities exam: Positive for: normal inspection Results - Vital Signs Recent Vital Signs: Last Vital Signs Temp 98 F 09/06/18 15:01 Pulse 83 09/06/18 15:01 Resp 20 09/06/18 15:01 BP 123/77 09/06/18 15:01 Pulse Ox 96 09/06/18 15:01 - Labs Result Diagrams: 09/05/18 12:57 09/05/18 12:57 Labs: Laboratory Results - last 24 hr 09/06/18 09/06/18 09/06/18 00:34 00:34 10:51 Urine Color Yellow Urine Clarity Clear Urine pH 8.0 Ur Specific [place] 1.017 Urine Protein Negative Urine Glucose (UA) 3+ H Urine Ketones Negative Urine Blood Negative Urine Nitrate Negative Urine Bilirubin Negative Urine Urobilinogen 4.0 Ur Leukocyte Esterase Neg Urine WBC (Auto) < 1 Ur Squamous Epith Cells < 1 Urine Opiates Screen Negative Urine Methadone Screen Negative Ur Barbiturates Screen Negative Ur Phencyclidine Scrn Negative Ur Amphetamines Screen Negative U Benzodiazepines Scrn Negative U Oth Cocaine Metabols Negative U Cannabinoids Screen Negative IgG Hepatitis A IgM Ab Negative Hep Bs Antigen Negative Hep B Core IgM Ab Negative Hepatitis C Antibody Reactive 09/06/18 10:51 Urine Color Urine Clarity Urine pH Ur Specific [place] Urine Protein Urine Glucose (UA) Urine Ketones Urine Blood Urine Nitrate Urine Bilirubin Urine Urobilinogen Ur Leukocyte Esterase Urine WBC (Auto) Ur Squamous Epith Cells Urine Opiates Screen Urine Methadone Screen Ur Barbiturates Screen Ur Phencyclidine Scrn Ur Amphetamines Screen U Benzodiazepines Scrn U Oth Cocaine Metabols U Cannabinoids Screen IgG 1167.2 Hepatitis A IgM Ab Hep Bs Antigen Hep B Core IgM Ab Hepatitis C Antibody Assessment & Plan (1) COPD exacerbation Assessment and Plan: Increase IV steroids Start Singulair because of allergy Continue nebulizer treatment Status: Acute (2) Alcohol dependence Status: Acute
[2018-09-06] MEDS: MethylPREDNISolone 40 mg Vial IVP SCH (21:15)
--- NOTE | 2018-09-06 21:21 | CP.PCM.PN ---
Subjective - Date & Time of Evaluation Date of Evaluation: 09/06/18 - Subjective Subjective: patient examined today no nausea, no vomiting, no dizziness, no diarrhea, no fever denies shortness of breath Objective - Vital Signs/Intake and Output Vital Signs (last 24 hours): Temp Pulse Resp BP Pulse Ox 98 F 83 20 123/77 96 09/06/18 15:01 09/06/18 15:01 09/06/18 15:01 09/06/18 15:01 09/06/18 15:01 - Medications Medications: Current Medications Albuterol/Ipratropium (Duoneb 3 Mg/0.5 Mg (3 Ml) Ud) 3 ml INH RQ4 [facility] Last Admin: 09/06/18 21:04 Dose: 3 ml Heparin Sodium (Porcine) (Heparin) 5,000 units SC Q12 [facility] Last Admin: 09/06/18 21:15 Dose: 5,000 units Ceftriaxone Sodium (Rocephin Iv 1 Gm Duplex) 50 mls @ 50 mls/30 min IVPB Q12H [facility]; Protocol Last Admin: 09/06/18 13:13 Dose: 50 mls/30 min Azithromycin 500 mg/ Sodium (Chloride) 250 mls @ 250 mls/hr IVPB DAILY [facility]; Protocol Last Admin: 09/06/18 09:13 Dose: 250 mls/hr Folic Acid 1 mg/ Thiamine HCl 100 mg/ Multivitamins/Vitamin C 10 ml/ Dextrose 1,011.2 mls @ 75 mls/hr IV Q24H [facility] Last Admin: 09/06/18 17:28 Dose: 75 mls/hr Methylprednisolone (Solu-Medrol) 40 mg IVP Q8 [facility] Last Admin: 09/06/18 21:15 Dose: 40 mg Nicotine (Nicoderm Cq) 1 patch TD DAILY [facility] Last Admin: 09/06/18 09:19 Dose: 1 patch Senna/Docusate Sodium (Senokot S 50 Mg-8.6 Mg) 1 tab PO BID [facility] Last Admin: 09/06/18 17:26 Dose: 1 tab - Labs Labs: 09/05/18 12:57 09/05/18 12:57 - Constitutional Appears: Well - Head Exam Head Exam: ATRAUMATIC, NORMAL INSPECTION, NORMOCEPHALIC - Eye Exam Eye Exam: EOMI, Normal appearance, PERRL Pupil Exam: NORMAL ACCOMODATION, PERRL - ENT Exam ENT Exam: Mucous Membranes Moist, Normal Exam - Neck Exam Neck Exam: Full ROM, Normal Inspection. absent: Lymphadenopathy - Respiratory Exam Respiratory Exam: Decreased Breath Sounds - Cardiovascular Exam Cardiovascular Exam: REGULAR RHYTHM, +S1, +S2 - GI/Abdominal Exam GI & Abdominal Exam: Soft, Diminished Bowel Sounds - Rectal Exam Rectal Exam: Deferred - Neurological Exam Neurological Exam: Oriented x3 Assessment and Plan - Assessment and Plan (Free Text) Plan: plan discussed with patient moderate complexity of care vitals reviewed labs reviewed medications reviewed azithromycin duoneb folic acid heparin nicoderm cq rocephin iv senokot solu-medrol
[2018-09-07] MEDS: Albuterol-Ipratrop 3 mg / 0.5 (3 ml) UD INH SCH ×3 (01:00→11:30)
[2018-09-07] MEDS: cefTRIAXone IV 1 gm in Dextros 50 ML IVPB SCH ×2 (02:04→13:30)
[2018-09-07] MEDS: MethylPREDNISolone 40 mg Vial IVP SCH ×2 (06:11→13:15)
[2018-09-07 06:47] LABS: BASO % 0.4 % (0.0-2.0); HEMOGLOBIN 15.7 g/dL (12.0-18.0); LYMPH # 0.8 K/uL (1.0-4.3); LYMPH % 13.6 % (20.0-40.0); MEAN CELL VOLUME 104.3 fL (80.0-94.0); MEAN CORPUSCULAR HEMOGLOBIN 34.6 pg (27.0-31.0); MEAN CORPUSCULAR HGB CONC 33.2 g/dL (33.0-37.0); MONO # 0.3 K/uL (0.0-0.8); MONO % 5.9 % (0.0-10.0); NEUT # 4.5 K/uL (1.8-7.0); NEUT % 80.1 % (50.0-75.0); NRBC % 0.1 % (0.0-2.0); RBC 4.52 Mil/uL (4.40-5.90); RED CELL DISTRIBUTION WIDTH 13.7 % (11.5-14.5); WHITE BLOOD COUNT 5.6 K/uL (4.8-10.8)
--- NOTE | 2018-09-07 07:35 | CP.PCM.PN ---
<Orestes,Blanca - Last Filed: 09/07/18 07:30> Subjective - Date & Time of Evaluation Date of Evaluation: 09/07/18 Time of Evaluation: 07:00 - Subjective Subjective: GI Fellow PGY5 Progress Note Pt seen and evaluated at bedside, pt doing well, breathing improved. No N/V/D. +BM. ROS: A 12pt RPS was negative except as above. Objective - Vital Signs/Intake and Output Vital Signs (last 24 hours): Temp Pulse Resp BP Pulse Ox 98.4 F 61 20 102/60 94 L 09/06/18 23:50 09/07/18 03:35 09/06/18 23:50 09/06/18 23:50 09/06/18 23:50 Intake and Output: 09/07/18 09/07/18 06:59 18:59 Intake Total 640 Balance 640 - Medications Medications: Current Medications Albuterol/Ipratropium (Duoneb 3 Mg/0.5 Mg (3 Ml) Ud) 3 ml INH RQ4 [facility] Last Admin: 09/07/18 01:00 Dose: Not Given Heparin Sodium (Porcine) (Heparin) 5,000 units SC Q12 [facility] Last Admin: 09/06/18 21:15 Dose: 5,000 units Ceftriaxone Sodium (Rocephin Iv 1 Gm Duplex) 50 mls @ 50 mls/30 min IVPB Q12H [facility]; Protocol Last Admin: 09/07/18 02:04 Dose: 50 mls/30 min Azithromycin 500 mg/ Sodium (Chloride) 250 mls @ 250 mls/hr IVPB DAILY [facility]; Protocol Last Admin: 09/06/18 09:13 Dose: 250 mls/hr Folic Acid 1 mg/ Thiamine HCl 100 mg/ Multivitamins/Vitamin C 10 ml/ Dextrose 1,011.2 mls @ 75 mls/hr IV Q24H [facility] Last Admin: 09/06/18 17:28 Dose: 75 mls/hr Methylprednisolone (Solu-Medrol) 40 mg IVP Q8 [facility] Last Admin: 09/07/18 06:11 Dose: 40 mg Nicotine (Nicoderm Cq) 1 patch TD DAILY [facility] Last Admin: 09/06/18 09:19 Dose: 1 patch Senna/Docusate Sodium (Senokot S 50 Mg-8.6 Mg) 1 tab PO BID [facility] Last Admin: 09/06/18 17:26 Dose: 1 tab - Labs Labs: 09/07/18 06:40 09/05/18 12:57 - Constitutional Appears: Non-toxic, No Acute Distress, Cachectic, Chronically Ill - Head Exam Head Exam: ATRAUMATIC, NORMAL INSPECTION, NORMOCEPHALIC - Eye Exam Eye Exam: EOMI, Normal appearance, PERRL - ENT Exam ENT Exam: Mucous Membranes Moist, Normal Exam - Neck Exam Neck Exam: Full ROM, Normal Inspection - Respiratory Exam Respiratory Exam: Decreased Breath Sounds, NORMAL BREATHING PATTERN - Cardiovascular Exam Cardiovascular Exam: REGULAR RHYTHM, +S1, +S2 - GI/Abdominal Exam GI & Abdominal Exam: Soft, Normal Bowel Sounds. absent: Distended, Guarding, Rigid, Tenderness - Extremities Exam Extremities Exam: Full ROM, Normal Inspection - Back Exam Back Exam: Full ROM, NORMAL INSPECTION - Neurological Exam Neurological Exam: Alert, Awake, Oriented x3 - Psychiatric Exam Psychiatric exam: Normal Affect, Normal Mood - Skin Skin Exam: Dry, Intact, Normal Color, Warm Assessment and Plan - Assessment and Plan (Free Text) Assessment: 1. Elevated LFTs 2. Alcohol Abuse 3. HCV ab+ 4. Constipation Plan: -Elevated LFTs likely from alcohol abuse and underlying HCV -Abd US Dopplerwith hepatic steatosis, evaluated portal vein patent, no mass lesions or cirrhosis -Autoimmune serologies pending -HCV ab+, ordered HCV PCR and genotype to determine prior exposure or active viral infection -Bowel regimen for constipation -CT imaging reviewed, no enteritis, + constipation, no cirrhosis -Alcohol cessation advised -Discussed results with pt about HCV and need for followup and treatment as an outpatient once HCV viral load and genotype result, answered all of pts questions, pt given emotional spport -Please call with any questions or concerns <Bear Thomas - Last Filed: 09/07/18 08:48> Objective - Vital Signs/Intake and Output Vital Signs (last 24 hours): Temp Pulse Resp BP Pulse Ox 98.3 F 71 20 134/82 98 09/07/18 08:09 09/07/18 08:09 09/07/18 08:09 09/07/18 08:09 09/07/18 08:09 Intake and Output: 09/07/18 09/07/18 06:59 18:59 Intake Total 640 Balance 640 - Medications Medications: Current Medications Albuterol/Ipratropium (Duoneb 3 Mg/0.5 Mg (3 Ml) Ud) 3 ml INH RQ4 [facility] Last Admin: 09/07/18 08:29 Dose: 3 ml Heparin Sodium (Porcine) (Heparin) 5,000 units SC Q12 [facility] Last Admin: 09/06/18 21:15 Dose: 5,000 units Ceftriaxone Sodium (Rocephin Iv 1 Gm Duplex) 50 mls @ 50 mls/30 min IVPB Q12H [facility]; Protocol Last Admin: 09/07/18 02:04 Dose: 50 mls/30 min Azithromycin 500 mg/ Sodium (Chloride) 250 mls @ 250 mls/hr IVPB DAILY [facility]; Protocol Last Admin: 09/06/18 09:13 Dose: 250 mls/hr Folic Acid 1 mg/ Thiamine HCl 100 mg/ Multivitamins/Vitamin C 10 ml/ Dextrose 1,011.2 mls @ 75 mls/hr IV Q24H [facility] Last Admin: 09/06/18 17:28 Dose: 75 mls/hr Methylprednisolone (Solu-Medrol) 40 mg IVP Q8 [facility] Last Admin: 09/07/18 06:11 Dose: 40 mg Nicotine (Nicoderm Cq) 1 patch TD DAILY [facility] Last Admin: 09/06/18 09:19 Dose: 1 patch Senna/Docusate Sodium (Senokot S 50 Mg-8.6 Mg) 1 tab PO BID [facility] Last Admin: 09/06/18 17:26 Dose: 1 tab - Labs Labs: 09/07/18 06:40 09/07/18 06:40 Attending/Attestation - Attestation I have personally seen and examined this patient.: Yes I have fully participated in the care of the patient.: Yes I have reviewed all pertinent clinical information, including history, physical exam and plan: Yes Notes (Text): 09/07/18 08:45 I have seen and examined patient. No acute events overnight, he is seen resting in bed comfortably eating breakfast. His breathing has improved and he denies abdominal pain, nausea, vomiting. Dyspnea, COPD exacerbation Transaminitis HCV ETOH abuse - Diet as tolerated - Continue with antibiotic therapy as per medical team - LFTs trending down, continue to monitor - Awaiting results of autoimmune panel - Patient would benefit from outpatient HCV management and screening colonoscopy, counseled regarding importance of ETOH cessation. No further planned GI intervention, will sign off case. Please reconsult as necessary, thank you.
[2018-09-07 07:39] LABS: ALB/GLOB RATIO 1.4 (1.0-2.1); ALBUMIN 4.6 g/dL (3.5-5.0); ALT/SGPT 268 U/L (21-72); AST/SGOT 97 U/L (17-59); BLOOD UREA NITROGEN 18 mg/dL (9-20); CALCIUM 9.3 mg/dl (8.6-10.4); GFR NON-AFRICAN AMERICAN > 60
[2018-09-07 08:10] VITALS: BP 134/82; TEMP 98.3; O2SAT 98
[2018-09-07] MEDS: Azithromycin 500 MG in Sodium Chloride 0.9% 250 ML IVPB SCH (09:32)
[2018-09-07] MEDS: Docusate-Senna 50 mg-8.6 mg Tab PO SCH (09:32)
[2018-09-07 12:35] VITALS: PULSE 83
--- NOTE | 2018-09-07 12:40 | CP.PCM.PN ---
Subjective - Date & Time of Evaluation Date of Evaluation: 09/07/18 Time of Evaluation: 12:39 - Subjective Subjective: PATIENT SEEN AND EXAMINED AT THE BEDSIDE Objective - Vital Signs/Intake and Output Vital Signs (last 24 hours): Temp Pulse Resp BP Pulse Ox 98.3 F 83 20 134/82 98 09/07/18 08:09 09/07/18 12:34 09/07/18 08:09 09/07/18 08:09 09/07/18 12:00 Intake and Output: 09/07/18 09/07/18 06:59 18:59 Intake Total 640 Balance 640 - Medications Medications: Current Medications Albuterol/Ipratropium (Duoneb 3 Mg/0.5 Mg (3 Ml) Ud) 3 ml INH RQ4 [facility] Last Admin: 09/07/18 11:30 Dose: 3 ml Heparin Sodium (Porcine) (Heparin) 5,000 units SC Q12 [facility] Last Admin: 09/07/18 09:32 Dose: 5,000 units Ceftriaxone Sodium (Rocephin Iv 1 Gm Duplex) 50 mls @ 50 mls/30 min IVPB Q12H [facility]; Protocol Last Admin: 09/07/18 02:04 Dose: 50 mls/30 min Azithromycin 500 mg/ Sodium (Chloride) 250 mls @ 250 mls/hr IVPB DAILY [facility]; Protocol Last Admin: 09/07/18 09:32 Dose: 250 mls/hr Folic Acid 1 mg/ Thiamine HCl 100 mg/ Multivitamins/Vitamin C 10 ml/ Dextrose 1,011.2 mls @ 75 mls/hr IV Q24H [facility] Last Admin: 09/06/18 17:28 Dose: 75 mls/hr Methylprednisolone (Solu-Medrol) 40 mg IVP Q8 [facility] Last Admin: 09/07/18 06:11 Dose: 40 mg Nicotine (Nicoderm Cq) 1 patch TD DAILY [facility] Last Admin: 09/07/18 09:32 Dose: 1 patch Senna/Docusate Sodium (Senokot S 50 Mg-8.6 Mg) 1 tab PO BID [facility] Last Admin: 09/07/18 09:32 Dose: Not Given - Labs Labs: 09/07/18 06:40 09/07/18 06:40 Assessment and Plan - Assessment and Plan (Free Text) Assessment: FOLLOW UP WITH DR Ana VENTURA IN HIS OFFICE FOLLOW UP WITH DR YORK IN HIS OFFICE CONTINUE HOME MEDICATION NEW PRESCRIPTION GIVEN DEAN VASQUEZLIPTA INH DAILY MEDRO DOSE INSTRUCTED VENTOLIN ACTIVITY TOLERATED CALL DR Ana VENTURA OR GO TO THE EMERGENCY ROOM IF SYMPTOM RETURN OR WORSENING
== END 2018-09-07 15:58 | disposition home or self-care (01) ==
LOC: C.ER 12:38 → C.9E 13:40 → C.6T 15:33
PROVIDERS: ADMIT Internal Medicine Nephrology; ATTEND Internal Medicine Nephrology
DX: J44.0 Chronic obstructive pulmonary disease with (acute) lower respiratory infection (principal); J18.1 Lobar pneumonia, unspecified organism; J44.1 Chronic obstructive pulmonary disease with (acute) exacerbation; F10.20 Alcohol dependence, uncomplicated; F17.210 Nicotine dependence, cigarettes, uncomplicated; I10 Essential (primary) hypertension; E78.5 Hyperlipidemia, unspecified; K59.00 Constipation, unspecified; Y90.3 Blood alcohol level of 60-79 mg/100 ml
CPT/HCPCS: 36415; 71045; 71260; 74177; 80053; 80074; 80320; 80324; 80345; 80346; 80349; 80353; 80358; 80361; 81001; 82784; 83992; 84484; 85025; 86039; 86255; 86376; 87040; 87521; 87902; 93005; 93975; 94640; 96365; 99284; G0378; J0456; J0696; J1644; J2920; J2930; J3411; J3475; J7050; J7070; Q9966; Q9967

== ENCOUNTER 2018-09-13 20:59 | Observation (INO) | payer OTHER ==
[2018-09-13 20:59] VITALS: BMI 18.8
[2018-09-13] MEDS ORDERED: Albuterol-Ipratrop 3 mg / 0.5 (3 ml) UD ONE ×2 (21:13→21:33)
[2018-09-13] MEDS ORDERED: Albuterol-Ipratrop 3 mg / 0.5 (3 ml) UD INH STA ×3 (21:18→21:19)
[2018-09-13] MEDS ORDERED: MethylPREDNISolone 40 mg Vial IVP STA (21:18)
--- NOTE | 2018-09-13 21:27 | C.PDOC ---
History Of Present Illness 53 year old male with Hx of ETOH abuse and COPD presents with cough, congestion, and wheezing. Denies fever or other complaints. Time Seen by Provider: 09/13/18 21:11 Chief Complaint (Nursing): Shortness Of Breath History Per: Patient History/Exam Limitations: no limitations Onset/Duration Of Symptoms: Hrs Current Symptoms Are (Timing): Still Present Current Respiratory Medications: See Home Med List Associated Symptoms: Other (Cough, congestion, wheezing) Recent travel outside of the [place]: No Past Medical History Reviewed: Historical Data, Nursing Documentation, Vital Signs Vital Signs: Last Vital Signs Temp 98.9 F 09/13/18 21:03 Pulse 96 H 09/13/18 21:03 Resp 20 09/13/18 21:03 BP 134/76 09/13/18 21:03 Pulse Ox 90 L 09/13/18 21:03 Primary Care Provider: Artem Barrett - Medical History PMH: Anxiety, Asthma, COPD, Depression, HTN Denies: Diabetes, Hepatitis, HIV, Chronic Kidney Disease, Seizures, Sexually Transmitted Disease - [facility] Procedures DETOXIFICATION SERVICES FOR SUBSTANCE ABUSE TREATMENT (08/28/18) GROUP MISSILEMAN FOR SUBSTANCE ABUSE TREATMENT, PSYCHOEDUCATION (08/28/18) GROUP MISSILEMAN FOR SUBSTANCE ABUSE, COGNITIVE BEHAVIORAL (08/28/18) INDIV PSYCHOTHERAPY FOR SUBSTANCE ABUSE TREATMENT, SUPPORT (08/28/18) INDIV PSYCHOTHERAPY FOR SUBSTANCE ABUSE, COGNITIV BEHAVIORAL (08/28/18) INDIV PSYCHOTHERAPY FOR SUBSTANCE ABUSE, PSYCHOEDUCATION (08/28/18) MEDS MGMT FOR SUBSTANCE ABUSE TREATMENT, NICOTINE REPLACE (04/05/18) Family History: States: Unknown Family Hx - Social History Hx Tobacco Use: Yes Hx Alcohol Use: Yes (30 plus years) Hx Substance Use: No - Immunization History Hx Tetanus Toxoid Vaccination: Yes Hx Influenza Vaccination: Yes Hx Pneumococcal Vaccination: Yes Review Of Systems Constitutional: Negative for: Fever, Chills Cardiovascular: Negative for: Chest Pain, Palpitations Respiratory: Positive for: Cough, Wheezing, Other (Congestion) Gastrointestinal: Negative for: Nausea, Vomiting Neurological: Negative for: Weakness, Numbness Physical Exam - Physical Exam Appears: Non-toxic Skin: Normal Color, Warm Head: Atraumatic, Normacephalic Eye(s): bilateral: Normal Inspection Oral Mucosa: Moist Chest: Symmetrical, No Tenderness Cardiovascular: Rhythm Regular Respiratory: No Rales, No Rhonchi, Wheezing (Bilateral) Gastrointestinal/Abdominal: Soft, No Tenderness Neurological/Psych: Oriented x3, Normal Speech ED Course And Treatment - Laboratory Results Result Diagrams: 09/13/18 21:27 09/13/18 21:27 O2 Sat by Pulse Oximetry: 90 (Room air) Medical Decision Making Medical Decision Making: copd EKG, blood work, and CXR ordered. Duoneb and solumedrol administered. ekg gnsr [address] t wave changes. persistnet wheezing accepted by dr barrett . Disposition - Disposition Disposition: HOSPITALIZED Disposition Time: 23:01 Condition: STABLE - Clinical Impression Clinical Impression: Chronic obstructive lung disease - Scribe Statement The provider has reviewed the documentation as recorded by the Scribe Casey Arita All medical record entries made by the Scribe were at my direction and personally dictated by me. I have reviewed the chart and agree that the record accurately reflects my personal performance of the history, physical exam, medical decision making, and the department course for this patient. I have also personally directed, reviewed, and agree with the discharge instructions and disposition. Decision To Admit - Pt Status Changed To: Hospital Disposition Of: Observation - . Bed Request Type: Telemetry Admitting Physician: Artem Barrett Patient Diagnosis: Chronic obstructive lung disease
[2018-09-13 21:31] LABS: BASO # 0.1 K/uL (0.0-0.2); BASO % 1.4 % (0.0-2.0); EOS % 0.3 % (0.0-4.0); HEMOGLOBIN 15.6 g/dL (12.0-18.0); LYMPH # 3.4 K/uL (1.0-4.3); LYMPH % 38.9 % (20.0-40.0); MEAN CORPUSCULAR HEMOGLOBIN 34.8 pg (27.0-31.0); MEAN CORPUSCULAR HGB CONC 33.5 g/dL (33.0-37.0); MEAN PLATELET VOLUME 10.1 fL (7.2-11.7); MONO # 0.7 K/uL (0.0-0.8); MONO % 7.8 % (0.0-10.0); NEUT # 4.5 K/uL (1.8-7.0); NEUT % 51.6 % (50.0-75.0); NRBC % 0.1 % (0.0-2.0); RBC 4.47 Mil/uL (4.40-5.90); RED CELL DISTRIBUTION WIDTH 13.7 % (11.5-14.5)
[2018-09-13 21:51] LABS: WHITE BLOOD COUNT 8.7 K/uL (4.8-10.8)
[2018-09-13 21:52] LABS: ALB/GLOB RATIO 1.4 (1.0-2.1); ALBUMIN 4.2 g/dL (3.5-5.0); ALT/SGPT 221 U/L (21-72); AST/SGOT 127 U/L (17-59); BLOOD UREA NITROGEN 18 mg/dL (9-20); GFR NON-AFRICAN AMERICAN > 60
[2018-09-13 22:00] LABS: B-TYPE NATRIURETIC PEPTIDE 24.2 pg/mL (0-900)
[2018-09-13 22:05] LABS: PARTIAL THROMBOPLASTIN TIME 30.4 SECONDS (21-34)
--- NOTE | 2018-09-13 23:01 | CP.PCM.HP ---
Past Patient History - Infectious Disease Hx of Infectious Diseases: None - Past Medical History & Family History Past Medical History?: Yes - Past Social History Smoking Status: Light Smoker < 10 Cigarettes Daily - CARDIAC Hx Hypertension: Yes - PULMONARY Hx Asthma: Yes Hx Chronic Obstructive Pulmonary Disease (COPD): Yes - NEUROLOGICAL Hx Seizures: No - HEENT Hx HEENT Problems: No - RENAL Hx Chronic Kidney Disease: No - ENDOCRINE/METABOLIC Hx Endocrine Disorders: No - HEMATOLOGICAL/ONCOLOGICAL Hx Human Immunodeficiency Virus (HIV): No - INTEGUMENTARY Hx Dermatological Problems: No - MUSCULOSKELETAL/RHEUMATOLOGICAL Hx Musculoskeletal Disorders: Yes Hx Falls: Yes (etoh related falls.) - GASTROINTESTINAL Hx Gastrointestinal Disorders: No - GENITOURINARY/GYNECOLOGICAL Hx Sexually Transmitted Disorders: No - PSYCHIATRIC Hx Anxiety: Yes Hx Depression: Yes Hx Substance Use: No - SURGICAL HISTORY Hx Surgeries: No - ANESTHESIA Hx Anesthesia: No Hx Anesthesia Reactions: No Hx Malignant Hyperthermia: No Meds Allergies/Adverse Reactions: Allergies Allergy/AdvReac Type Severity Reaction Status Date / Time No Known Allergies Allergy Verified 09/13/18 21:06 Results - Vital Signs Recent Vital Signs: Last Vital Signs Temp 98.9 F 09/13/18 21:03 Pulse 96 H 09/13/18 21:03 Resp 22 09/13/18 21:30 BP 134/76 09/13/18 21:03 Pulse Ox 90 L 09/13/18 21:49 - Labs Result Diagrams: 09/13/18 21:27 09/13/18 21:27 Labs: Laboratory Results - last 24 hr 09/13/18 09/13/18 09/13/18 21:27 21:27 21:27 WBC 8.7 D RBC 4.47 Hgb 15.6 Hct 46.5 MCV 104.0 H MCH 34.8 H MCHC 33.5 RDW 13.7 Plt Count 255 MPV 10.1 Neut % (Auto) 51.6 Lymph % (Auto) 38.9 Maverick % (Auto) 7.8 Eos % (Auto) 0.3 Baso % (Auto) 1.4 Neut # (Auto) 4.5 Lymph # (Auto) 3.4 Maverick # (Auto) 0.7 Eos # (Auto) 0.0 Baso # (Auto) 0.1 PT 11.0 INR 1.0 APTT 30.4 Sodium 141 Potassium 3.9 Chloride 102 Carbon Dioxide 27 Anion Gap 17 BUN 18 Creatinine 1.0 Est GFR ( Amer) > 60 Est GFR (Non-Af Amer) > 60 Random Glucose 163 H Calcium 9.0 Total Bilirubin 0.4 AST 127 H D ALT 221 H Alkaline Phosphatase 74 Troponin I < 0.0120 NT-Pro-B Natriuret Pep 24.2 Total Protein 7.3 Albumin 4.2 Globulin 3.1 Albumin/Globulin Ratio 1.4
[2018-09-13 23:24] VITALS: RESP 20
[2018-09-13] MEDS: MethylPREDNISolone 40 mg Vial IVP SCH (23:39)
[2018-09-13] MEDS: Azithromycin 500mg/250ML NS 500 MG/250 ML BAG IVPB SCH (23:39)
[2018-09-14] MEDS: Albuterol-Ipratrop 3 mg / 0.5 (3 ml) UD INH SCH ×8 (00:54→23:57)
[2018-09-14] MEDS: MethylPREDNISolone 40 mg Vial IVP SCH ×3 (06:12→21:32)
[2018-09-14] MEDS: cefTRIAXone IV 1 gm in Dextros 50 ML IVPB SCH (09:33)
[2018-09-14] MEDS: Enoxaparin 40 mg Syringe SC SCH (09:33)
[2018-09-14] MEDS: Multiple Vitamins Tab PO SCH (09:34)
[2018-09-14] MEDS ORDERED: Tiotropium 18 mcg Cap For Inhalation INH SCH (10:00)
--- NOTE | 2018-09-14 10:54 | RAD ---
Date of service: 09/13/2018 HISTORY: chest pain COMPARISON: 08/10/2018 TECHNIQUE: 1 view obtained. FINDINGS: LUNGS: Hyperinflation suggestive for COPD and or emphysematous changes. Biapical pleural thickening. No focal infiltrate or effusion. PLEURA: No significant pleural effusion identified, no pneumothorax apparent. CARDIOVASCULAR: No aortic atherosclerotic calcification present. Normal cardiac size. No pulmonary vascular congestion. OSSEOUS STRUCTURES: No significant abnormalities. VISUALIZED UPPER ABDOMEN: Normal. OTHER FINDINGS: None. IMPRESSION: No active disease.
--- NOTE | 2018-09-14 16:53 | CP.PCM.PN ---
Subjective - Date & Time of Evaluation Date of Evaluation: 09/14/18 - Subjective Subjective: patient examined today no nausea no vomiting no dizziness no diarrhea no fever no shortness of breath Objective - Vital Signs/Intake and Output Vital Signs (last 24 hours): Temp Pulse Resp BP Pulse Ox 98.2 F 90 20 134/86 94 L 09/14/18 15:47 09/14/18 16:13 09/14/18 15:47 09/14/18 15:47 09/14/18 15:47 - Medications Medications: Current Medications Albuterol/Ipratropium (Duoneb 3 Mg/0.5 Mg (3 Ml) Ud) 3 ml INH RQ4 [facility] Last Admin: 09/14/18 13:28 Dose: 3 ml Chlordiazepoxide (Librium) 25 mg PO Q8 PRN PRN Reason: Symptoms of alcohol withdrawl Last Admin: 09/14/18 09:34 Dose: 25 mg Enoxaparin Sodium (Lovenox) 40 mg SC DAILY [facility] Last Admin: 09/14/18 09:33 Dose: 40 mg Famotidine (Pepcid) 20 mg PO BID [facility] Last Admin: 09/14/18 09:34 Dose: 20 mg Ceftriaxone Sodium (Rocephin Iv 1 Gm Duplex) 50 mls @ 100 mls/hr IVPB DAILY [facility]; Protocol Last Admin: 09/14/18 09:33 Dose: 100 mls/hr Azithromycin (Zithromax 500mg In Ns Addvantage) 500 mg in 250 mls @ 166.667 mls/hr IVPB Q24H [facility]; Protocol Last Admin: 09/13/18 23:39 Dose: 166.667 mls/hr Methylprednisolone (Solu-Medrol) 40 mg IVP Q8 [facility] Last Admin: 09/14/18 13:46 Dose: 40 mg Multivitamins (Hexavitamin) 1 tab PO DAILY [facility] Last Admin: 09/14/18 09:34 Dose: 1 tab Thiamine HCl (Vitamin B1 Tab) 100 mg PO DAILY [facility] Last Admin: 09/14/18 09:33 Dose: 100 mg - Labs Labs: 09/13/18 21:27 09/13/18 21:27 PT 11.0 SECONDS (9.7-12.2) 09/13/18 21: INR 1.0 05/20/19 21:27 APTT 30.4 SECONDS (21-34) 09/13/18 21:27 - Constitutional Appears: Well - Head Exam Head Exam: ATRAUMATIC, NORMAL INSPECTION, NORMOCEPHALIC - Eye Exam Eye Exam: EOMI, Normal appearance, PERRL Pupil Exam: NORMAL ACCOMODATION, PERRL - ENT Exam ENT Exam: Mucous Membranes Moist, Normal Exam - Neck Exam Neck Exam: Full ROM, Normal Inspection. absent: Lymphadenopathy - Respiratory Exam Respiratory Exam: Decreased Breath Sounds - Cardiovascular Exam Cardiovascular Exam: REGULAR RHYTHM, +S1, +S2 - GI/Abdominal Exam GI & Abdominal Exam: Soft, Diminished Bowel Sounds - Rectal Exam Rectal Exam: Deferred - Neurological Exam Neurological Exam: Oriented x3 Assessment and Plan - Assessment and Plan (Free Text) Plan: plan discussed with patient moderate complexity of care duoneb hexavitamin librium lovenox pepcid rocephin Iv solu-medrol Zithromax medications reviewed vitals reviewed labs reviewed
[2018-09-14] MEDS: Azithromycin 500mg/250ML NS 500 MG/250 ML BAG IVPB SCH ×2 (21:32→23:40)
[2018-09-15] MEDS: Albuterol-Ipratrop 3 mg / 0.5 (3 ml) UD INH SCH ×3 (03:03→11:09)
--- NOTE | 2018-09-15 07:25 | CP.PCM.PN ---
Subjective - Date & Time of Evaluation Date of Evaluation: 09/15/18 Time of Evaluation: 08:00 - Subjective Subjective: Medicine Progress Note for Dr. Ana Huerta Patient was seen and examined at bedside in the AM. Patient states he feels like his breathing has significantly improved. Patient denies chest pain, shortness of breath, palpitations, headache, nausea, vomiting, fever, chills, diarrhea or constipation. Objective - Vital Signs/Intake and Output Vital Signs (last 24 hours): Temp Pulse Resp BP Pulse Ox 97.9 F 85 20 125/84 97 09/14/18 23:15 09/15/18 01:00 09/14/18 23:15 09/14/18 23:15 09/15/18 05:00 - Medications Medications: Current Medications Albuterol/Ipratropium (Duoneb 3 Mg/0.5 Mg (3 Ml) Ud) 3 ml INH RQ4 [facility] Last Admin: 09/15/18 03:03 Dose: Not Given Chlordiazepoxide (Librium) 25 mg PO Q8 PRN PRN Reason: Symptoms of alcohol withdrawl Last Admin: 09/14/18 21:34 Dose: 25 mg Enoxaparin Sodium (Lovenox) 40 mg SC DAILY [facility] Last Admin: 09/14/18 09:33 Dose: 40 mg Famotidine (Pepcid) 20 mg PO BID [facility] Last Admin: 09/14/18 18:20 Dose: 20 mg Ceftriaxone Sodium (Rocephin Iv 1 Gm Duplex) 50 mls @ 100 mls/hr IVPB DAILY [facility]; Protocol Last Admin: 09/14/18 09:33 Dose: 100 mls/hr Azithromycin (Zithromax 500mg In Ns Addvantage) 500 mg in 250 mls @ 166.667 mls/hr IVPB Q24H [facility]; Protocol Last Admin: 09/14/18 23:40 Dose: Not Given Methylprednisolone (Solu-Medrol) 20 mg IVP Q8 [facility] Last Admin: 09/14/18 21:32 Dose: 20 mg Multivitamins (Hexavitamin) 1 tab PO DAILY [facility] Last Admin: 09/14/18 09:34 Dose: 1 tab Thiamine HCl (Vitamin B1 Tab) 100 mg PO DAILY [facility] Last Admin: 09/14/18 09:33 Dose: 100 mg - Labs Labs: 09/13/18 21:27 09/13/18 21:27 PT 11.0 SECONDS (9.7-12.2) 09/13/18 21:27 INR 1.0 09/13/18 21:27 APTT 30.4 SECONDS (21-34) 09/13/18 21:27 - Constitutional Appears: No Acute Distress, Older Than Stated Age - Head Exam Head Exam: ATRAUMATIC, NORMAL INSPECTION - Eye Exam Eye Exam: EOMI, Normal appearance - ENT Exam ENT Exam: Mucous Membranes Moist - Respiratory Exam Respiratory Exam: Clear to Ausculation Bilateral, NORMAL BREATHING PATTERN - Cardiovascular Exam Cardiovascular Exam: REGULAR RHYTHM, +S1, +S2 - GI/Abdominal Exam GI & Abdominal Exam: Soft, Normal Bowel Sounds. absent: Tenderness - Extremities Exam Extremities Exam: Normal Inspection - Neurological Exam Neurological Exam: Alert, Awake, Oriented x3 - Psychiatric Exam Psychiatric exam: Normal Affect Assessment and Plan - Assessment and Plan (Free Text) Assessment: COPD Exacerbation - Duonebs prn shortness of breath - Solumedrol - Azithromycin 500mg q24h - Chest Xray: No active disease Patient discharged home Please start Medrol Dose Pack Please start Z-Dave Please follow up with your primary care physician, Dr. Ana Huerta on Thursday09/17/18 at 2pm: [address], [place] [phone] Managment per Dr. Ana Huerta
[2018-09-15] MEDS: MethylPREDNISolone 40 mg Vial IVP SCH (07:30)
[2018-09-15 07:34] VITALS: PULSE 77
[2018-09-15 07:53] VITALS: BP 131/79; TEMP 98; O2SAT 98
[2018-09-15] MEDS: Enoxaparin 40 mg Syringe SC SCH (09:25)
[2018-09-15] MEDS: Multiple Vitamins Tab PO SCH (09:25)
[2018-09-15] MEDS: cefTRIAXone IV 1 gm in Dextros 50 ML IVPB SCH (09:25)
--- NOTE | 2018-09-15 10:02 | CON ---
DATE: 09/14/2018 HISTORY OF PRESENT ILLNESS: This is a 53-year-old male, a smoker and alcohol drinker with history of COPD, hypertension, depression. He is now admitted with shortness of breath, cough with scanty sputum. There is no fever, chills, headache. No vomiting. No hemoptysis. No hematemesis. No abdominal pain. No urinary symptoms. No leg swelling. There is no history of seizures. PAST MEDICAL HISTORY: COPD, hypertension, use of alcohol and smoking and depression. FAMILY HISTORY: Nil significant. REVIEW OF SYSTEMS: As noted above. PHYSICAL EXAMINATION: GENERAL: The patient is alert, oriented, afebrile. Not in acute distress at this stage. VITAL SIGNS: Afebrile, blood pressure 134/86, pulse 90, respirations 20. Hemoglobin oxygen saturation of 94%. HEENT: Unremarkable. NECK: Supple. There is no lymphadenopathy. HEART: Regular. No gallop rhythm. LUNGS: Diminished breath sounds with occasional rhonchi. ABDOMEN: Soft. EXTREMITIES: Legs, no edema. LABORATORY DATA: His white count is 8700, hemoglobin 15.6, platelet count 255,000. INR 1, serum sodium 141, potassium 3.9, chloride 102, BUN 18, creatinine 1, blood glucose 163. Alcohol level 262, proBNP is 26. Chest x-ray shows hyperinflation suggestive of COPD with emphysematous picture. No infiltrate or effusion. No pneumothorax. IMPRESSION: Respiratory insufficiency, exacerbation of chronic obstructive pulmonary disease, history of alcohol use and history of smoking and there is hyperglycemia as reported on blood test, history of depression. PLAN: Recommend continue with the current medications including bronchodilators and vasodilators, sputum testing and follow up with PMD. Colby Booker MD
[2018-09-15 11:39] LABS: BASO # 0.1 K/uL (0.0-0.2); BASO % 0.6 % (0.0-2.0); LYMPH # 0.4 K/uL (1.0-4.3); LYMPH % 4.1 % (20.0-40.0); MEAN CELL VOLUME 103.1 fL (80.0-94.0); MEAN CORPUSCULAR HEMOGLOBIN 35.7 pg (27.0-31.0); MEAN CORPUSCULAR HGB CONC 34.7 g/dL (33.0-37.0); MEAN PLATELET VOLUME 11.2 fL (7.2-11.7); MONO # 1.1 K/uL (0.0-0.8); MONO % 12.8 % (0.0-10.0); NEUT # 7.4 K/uL (1.8-7.0); NEUT % 82.5 % (50.0-75.0); PLATELET COUNT 204 K/uL (130-400); RBC 4.49 Mil/uL (4.40-5.90); RED CELL DISTRIBUTION WIDTH 13.5 % (11.5-14.5); WHITE BLOOD COUNT 8.9 K/uL (4.8-10.8)
[2018-09-15 11:57] LABS: ALB/GLOB RATIO 1.5 (1.0-2.1); ALBUMIN 4.4 g/dL (3.5-5.0); ALT/SGPT 164 U/L (21-72); AST/SGOT 58 U/L (17-59); BLOOD UREA NITROGEN 18 mg/dL (9-20); CALCIUM 9.7 mg/dl (8.6-10.4); GFR NON-AFRICAN AMERICAN > 60
[2018-09-15 12:18] LABS: BANDS 1 % (0-2); LYMPHOCYTE 6 % (20-40); MONOCYTE 9 % (0-10); NEUTROPHIL 84 % (50-75); PLATELET ESTIMATE NORMAL (NORMAL); TOTAL CELLS COUNTED 100
--- NOTE | 2018-09-15 19:56 | CP.PCM.DIS ---
Provider - Provider Date of Admission: 09/13/18 22:02 Attending physician: Sharron Huerta MD Consults: 09/13/18 23:00 Physician Consult Routine Comment: Consulting Provider: Colby Booker Consulting Physician: Colby Booker Reason for Consult: copd Hospital Course - Lab Results Lab Results: Micro Results 09/14/18 14:45 Sputum Gram Stain - Final Most Recent Lab Values WBC 8.9 K/uL (4.8-10.8) 09/15/18 11:30 RBC 4.49 Mil/uL (4.40-5.90) 09/15/18 11:30 Hgb 16.0 g/dL (12.0-18.0) 09/15/18 11:30 Hct 46.3 % (35.0-51.0) 09/15/18 11:30 MCV 103.1 fL (80.0-94.0) H 09/15/18 11:30 MCH 35.7 pg (27.0-31.0) H 09/15/18 11:30 MCHC 34.7 g/dL (33.0-37.0) 09/15/18 11:30 RDW 13.5 % (11.5-14.5) 09/15/18 11:30 Plt Count 204 K/uL (130-400) 09/15/18 11:30 MPV 11.2 fL (7.2-11.7) 09/15/18 11:30 Neut % (Auto) 82.5 % (50.0-75.0) H 09/15/18 11:30 Lymph % (Auto) 4.1 % (20.0-40.0) L 09/15/18 11:30 [place] % (Auto) 12.8 % (0.0-10.0) H 09/15/18 11:30 Eos % (Auto) 0.0 % (0.0-4.0) 09/15/18 11:30 Baso % (Auto) 0.6 % (0.0-2.0) 09/15/18 11:30 Neut # (Auto) 7.4 K/uL (1.8-7.0) H 09/15/18 11:30 Lymph # (Auto) 0.4 K/uL (1.0-4.3) L 09/15/18 11:30 [place]ier # (Auto) 1.1 K/uL (0.0-0.8) H 09/15/18 11:30 Eos # (Auto) 0.0 K/uL (0.0-0.7) 09/15/18 11:30 Baso # (Auto) 0.1 K/uL (0.0-0.2) 09/15/18 11:30 Neutrophils % (Manual) 84 % (50-75) H 09/15/18 11:30 Band Neutrophils % 1 % (0-2) 09/15/18 11:30 Lymphocytes % (Manual) 6 % (20-40) L 09/15/18 11:30 Monocytes % (Manual) 9 % (0-10) 09/15/18 11:30 Platelet Estimate Normal (NORMAL) 09/15/18 11:30 PT 11.0 SECONDS (9.7-12.2) 09/13/18 21:27 INR 1.0 09/13/18 21: APTT 30.4 SECONDS (21-34) 09/13/18 21:27 Sodium 135 mmol/L (132-148) 09/15/18 11:30 Potassium 4.2 mmol/L (3.6-5.2) 09/15/18 11:30 Chloride 97 mmol/L (98-107) L 09/15/18 11:30 Carbon Dioxide 27 mmol/L (22-30) 09/15/18 11:30 Anion Gap 15 (10-20) 09/15/18 11:30 BUN 18 mg/dL (9-20) 09/15/18 11:30 Creatinine 0.6 mg/dL (0.8-1.5) L 09/15/18 11:30 Est GFR ( Amer) > 60 09/15/18 11:30 Est GFR (Non-Af Amer) > 60 09/15/18 11:30 Random Glucose 107 mg/dL (75-110) D 09/15/18 11:30 Calcium 9.7 mg/dl (8.6-10.4) 09/15/18 11:30 Phosphorus 3.8 mg/dL (2.5-4.5) 09/15/18 11:30 Magnesium 1.9 mg/dL (1.6-2.3) 09/15/18 11:30 Total Bilirubin 0.8 mg/dL (0.2-1.3) 09/15/18 11:30 AST 58 U/L (17-59) 09/15/18 11:30 ALT 164 U/L (21-72) H D 09/15/18 11:30 Alkaline Phosphatase 72 U/L (38-126) 09/15/18 11:30 Troponin I < 0.0120 ng/mL (0.00-0.120) 09/13/18 21:27 NT-Pro-B Natriuret Pep 26.6 pg/mL (0-900) 09/14/18 06:46 Total Protein 7.4 g/dL (6.3-8.3) 09/15/18 11:30 Albumin 4.4 g/dL (3.5-5.0) 09/15/18 11:30 Globulin 3.0 gm/dL (2.2-3.9) 09/15/18 11:30 Albumin/Globulin Ratio 1.5 (1.0-2.1) 09/15/18 11:30 Alcohol, Quantitative 262 mg/dl (0-10) H 09/13/18 23:52 Discharge Exam - Head Exam Head Exam: ATRAUMATIC, NORMAL INSPECTION - Eye Exam Eye Exam: EOMI, Normal appearance, PERRL Pupil Exam: NORMAL ACCOMODATION, PERRL - ENT Exam ENT Exam: Normal Exam - Neck Exam Neck exam: Full Rom - Respiratory Exam Respiratory Exam: Decreased Breath Sounds, Rales - Cardiovascular Exam Cardiovascular Exam: REGULAR RHYTHM, +S1, +S2 - Neurological Exam Neurological exam: Oriented x3 Discharge Plan - Discharge Medications Prescriptions: Methylprednisolone [Medrol Dose Pack (21 tabs)] 4 mg PO DAILY #21 mg Albuterol HFA [Ventolin HFA 90 mcg/actuation (8 g)] 1 puff INH RQ4 PRN #1 inhaler PRN Reason: Wheezing Azithromycin [Z-Dave] 250 mg PO DAILY #6 tab - Follow Up Plan Condition: STABLE Disposition: HOME/ ROUTINE Instructions: Heart Healthy Diet, Azithromycin (Systemic), Exacerbation of COPD, Albuterol, Methylprednisolone Additional Instructions: Please start Medrol Dose Pack Please start Z-Dave Please follow up with your primary care physician, Dr. Ana Huerta on Thursday09/17/18 at 2pm: [place] [address] Referrals: Artem Huerta MD [Staff Provider] -
== END 2018-09-15 12:58 | disposition home or self-care (01) ==
LOC: C.ER 20:59 → C.9E 22:02 → C.6T 22:53
PROVIDERS: ADMIT Internal Medicine Nephrology; ATTEND Internal Medicine Nephrology
DX: J44.1 Chronic obstructive pulmonary disease with (acute) exacerbation (principal); I10 Essential (primary) hypertension; F17.200 Nicotine dependence, unspecified, uncomplicated
CPT/HCPCS: 36415; 71045; 80053; 80320; 83735; 83880; 84100; 84484; 85025; 85610; 85730; 87070; 94640; 96365; 96374; 97116; 97161; 99284; G0378; G8978; G8979; G8980; J0456; J0696; J1650; J2920